=== PATIENT | female | born 1985 | race Caucasian/White ===

== ENCOUNTER 2017-11-26 12:55 | Inpatient (IN) | payer BC ==
[~2017-11-26 12:55] MED LIST: Bupivacaine 0.25% HCL 30 ML VIAL ONE
[2017-11-26] MEDS ORDERED: Meperidine HCl/PF 25 MG/ML VIAL IM/IV PRN (13:03)
[2017-11-26] MEDS ORDERED: HYDROcodone/Acetaminophen 5/325 mg Tablet PO PRN (13:03)
[2017-11-26] MEDS ORDERED: Ondansetron HCl/PF 4 MG/2 ML Vial IVP PRN (13:03)
[2017-11-26] MEDS ORDERED: Lidocaine 1% (PF) 30 ML VIAL SC PRN (13:03)
[2017-11-26] MEDS ORDERED: Ibuprofen 800 MG TAB PO PRN (13:03)
[2017-11-26] MEDS ORDERED: Methylergonovine 0.2 MG/ML VIAL IM PRN (13:03)
[2017-11-26] MEDS ORDERED: Carboprost 250 MCG/ML AMP IM PRN (13:03)
[2017-11-26] MEDS ORDERED: LR / Pitocin 40 units/1000 ml 1,000 ML IV PRN (13:03)
[2017-11-26] MEDS ORDERED: Misoprostol 200 MCG TAB PR PRN (13:03)
[2017-11-26] MEDS ORDERED: Promethazine HCl 25 MG/ML VIAL IM PRN (13:03)
[2017-11-26] MEDS ORDERED: Acetaminophen 500 MG TAB PO PRN (13:03)
[2017-11-26] MEDS ORDERED: LR 500 ML/Oxytocin 10 units 500 ML IV SCH (13:15)
[2017-11-26] MEDS: Lactated Ringer's 1,000 ML IV SCH ×2 (14:00→16:08)
[2017-11-26] MEDS ORDERED: Bupivacaine 0.5% 20 ML, Fentanyl 400 MCG in Sodium Chloride 0.9% 72 ML EPIDURAL SCH (14:30)
[2017-11-26 14:38] LABS: Hemoglobin 11.7 g/dL (12.0-16.0); Mean Corpuscular HGB CONC 32.1 g/dL (32.0-36.0); Mean Corpuscular Hemoglobin 30.6 pg (27.0-31.0); Mean Corpuscular Volume 95.4 fl (81.0-99.0); Mean Platelet Volume 12.2 fL (7.4-10.4); Platelet Count 173 thou/uL (130-400); RBC Distribution Width 13.8 % (11.5-14.5); Red Blood Cell (RBC) Count 3.82 mill/uL (4.20-5.40); White Blood Cell (WBC) Count 9.9 thou/uL (4.8-10.8)
[2017-11-26 14:43] VITALS: BMI 29.5
[2017-11-26 15:13] LABS: Syphilis Antibody Nonreactive (Nonreactive); Syphilis Antibody Index 0.06 S/CO (<1.00 Non-Reactive)
[2017-11-26 15:14] LABS: HBSAg Index 0.22 S/CO (0-0.99); Hep B Surf Ag Non-Reactive S/CO (NonReactive)
[2017-11-26] MEDS ORDERED: Naloxone HCl 0.4 mg/ml Vial IVP PRN ×2 (15:41)
[2017-11-26] MEDS ORDERED: ePHEDrine/0.9% NaCl/PF SYRINGE 50 mg/10 ml SLOW IVP PRN (15:41)
[2017-11-26] MEDS ORDERED: Acetaminophen 325 MG TAB PO PRN (15:41)
[2017-11-26] MEDS ORDERED: Eucerin (Mineral Oil/Petrolatum,White) 30 gm Jar TOP PRN (15:41)
[2017-11-26] MEDS ORDERED: Lactated Ringer's 500 ML IV PRN (15:41)
[2017-11-26] MEDS ORDERED: Fentanyl 4mcg/Marcaine 0.1% Cassette 100 ML EPIDURAL SCH (15:45)
[2017-11-26] MEDS ORDERED: Communication Order-Pharmacy FS SCH (15:45)
[2017-11-26] MEDS ORDERED: Calcium Carbonate 500 MG ChewTAB PO PRN (17:53)
[2017-11-26] MEDS ORDERED: Bisacodyl 10 MG SUPP PR PRN (23:03)
[2017-11-26] MEDS ORDERED: Lanolin Ointment 7 GM TUBE TOP PRN (23:03)
[2017-11-26] MEDS ORDERED: Preparation H Ointment 28 GM TUBE PR PRN (23:03)
[2017-11-26] MEDS ORDERED: LR / Pitocin 40 units/1000 ml 1,000 ML IV SCH (23:03)
[2017-11-26] MEDS ORDERED: Milk Of Magnesia 30 ML UDCUP PO PRN (23:03)
[2017-11-26] MEDS ORDERED: Ibuprofen 800 MG TAB PO SCH (23:30)
[2017-11-26] MEDS: Docusate Calcium (SURFAK) 240 MG CAP PO SCH (23:32)
[2017-11-26] MEDS: Ibuprofen 800 MG TAB PO SCH ×2 (23:33→23:35)
--- NOTE | 2017-11-27 00:52 | OP ---
DATE OF PROCEDURE: 11/26/2017 PREOPERATIVE DIAGNOSES: 1. Term intrauterine . 2. Severe right hip and thigh pain and induction of labor at term. POSTOPERATIVE DIAGNOSES: 1. Term intrauterine . 2. Severe right hip and thigh pain and induction of labor at term. 3. First degree perineal laceration. PROCEDURE PERFORMED: Normal spontaneous vaginal delivery and laceration repair. SURGEON: Eulalio Donovan M.D. ANESTHESIA: Epidural. ESTIMATED BLOOD LOSS: 250 mL. BRIEF DELIVERY SUMMARY: This is a 32-year-old G4, P2-0-2-2 at 39 and 4/7th weeks gestation who prese nted for induction of labor at term secondary to severe right hip and thigh joint pain. She arrived on Labor and Delivery and was given an epidural, which alleviated her hip and back pain. After that time, we performed artificial rupture of membranes. At the time of admission, her cervical exam was 3 to 4 cm, 70% effaced and -1 station. She progressed quickly to complete and pushing over 3 hours a nd she delivered a live female , head OA. Mouth and nares were bulb suctioned at the perineum. There was a nuchal cord x1, which was easily reduced prior to delivery of the shoulders. Shoulders and body quickly and easily followed and the was placed on mother's abdomen. Apgars w ere 8 at 1 minute and 9 at 5 minutes. The umbilical cord was doubly clamped and cut and cord blood w as collected and sent for analysis. The placenta delivered spontaneously and intact with a 3-vessel umbilical cord. Uterine fundus was firm following evacuation of the placenta. Benson catheter was re placed. There was a first degree perineal laceration, which was repaired in standard running fashion using 2-0 Vicryl suture under epidural anesthesia with excellent hemostasis. Mom and baby were left with the nurse in excellent condition attempting to breast feed.
[2017-11-27] MEDS: HYDROcodone/Acetaminophen 5/325 mg Tablet PO PRN ×3 (02:48→21:08)
[2017-11-27] MEDS: Ibuprofen 800 MG TAB PO SCH ×3 (06:24→21:08)
[2017-11-27] MEDS ORDERED: Prenatal Vitamin 1 TAB PO SCH (09:00)
[2017-11-27] MEDS: Ferrous Sulfate 325 MG TAB PO SCH ×2 (09:22→17:02)
[2017-11-27] MEDS: Docusate Calcium (SURFAK) 240 MG CAP PO SCH ×2 (09:23→21:08)
[2017-11-27 22:31] VITALS: TEMP 97.8
[2017-11-27 22:32] VITALS: BP 146/91
== END 2017-11-27 22:08 | disposition home or self-care (01) | DRG 775 ==
LOC: L&D 12:55 → 3SW 22:52
PROVIDERS: ADMIT Family Medicine; ATTEND Family Medicine
PROC: 10E0XZZ Delivery of Products of Conception, External Approach (ICD-10-PCS; principal; 2017-11-26)
PROC: 0HQ9XZZ Repair Perineum Skin, External Approach (ICD-10-PCS; 2017-11-26)
PROC: 10907ZC Drainage of Amniotic Fluid, Therapeutic from Products of Conception, Via Natural or Artificial Opening (ICD-10-PCS; 2017-11-26)
DX: O99.89 Other specified diseases and conditions complicating pregnancy, childbirth and the puerperium (principal); M25.551 Pain in right hip; M53.3 Sacrococcygeal disorders, not elsewhere classified; M79.651 Pain in right thigh; O69.81X0 Labor and delivery complicated by cord around neck, without compression, not applicable or unspecified; O70.0 First degree perineal laceration during delivery; Z3A.39 39 weeks gestation of pregnancy; Z37.0 Single live birth
CPT/HCPCS: 36415; 51702; 85027; 86780; 87340; J2001; J3010; J3490; J7050; S0020

== ENCOUNTER 2017-12-01 12:22 | Inpatient (IN) | payer BC ==
--- NOTE | 2017-12-01 12:59 | PDOC.EVN ---
Event Note - Event Note Event Note: ER call to em at 1250: I just received a call from the PA in the ER. She has assumed care of Ms Hunter who just arrived to the ED. Per EMS, she had a "seizure" and just arrived to our ER. She delivered [address] Donovan, controlled , which was induced for chronic hip pain but not HTN. She does not report any FREEMAN or visual changes in these last few days since delivery. Her BP in ER was 140/90s, but not severe. I have requested she get 6 grams IV Mag then 2 grams per hour. She needs CMP/CBC /Urine protien. Due to atypical presentation, I have requested a head CT to rule out any other intracranial issues. Patient received versed 5mg per EMS. I have notified Dr Donovan and am awaiting her response. Will bring up to L&D when the ER eval is complete. Working DX: 5 days , eclampsia.
[2017-12-01] MEDS ORDERED: Magnesium Sulfate 6 GM in Sodium Chloride 0.9% 250 ML 250 ML IVPB SCH (13:00)
[2017-12-01] MEDS ORDERED: Magnesium Sulfate 2 GM/100 ML BAG ONE (13:28)
--- NOTE | 2017-12-01 13:28 | PDOC.LDHP ---
Labor and Delivery H&P Chief complaint: other (5 days seizure activity) HPI: 32 yo white X 3, last one was [address] Donovan, SAB x2 (one D&C ) here for seizure witnessed by EMS. Given Versed 5mg x 1. In ER now bed4. I have seen the patient (slightly post-ictal)and interviewed the at bedside. Dr Donovan aware of patient. No meds except hydrocodone for hip pain. Allergies: NONE Surg: D&C X1 ROS: not available due to patient sedation BP now 130/[address] done...MRI pending Labs pending (see event note from 20 minutes prior) Grav: 5 Para: 3 (SAB 2) Current complications: none Allergies/Adverse Reactions: Allergies Allergy/AdvReac Type Severity Reaction Status Date / Time No Known Drug Allergies Allergy Verified 07/01/15 23:06 - Physical Exam Abnormal vital signs: 130/100 - Plan Plan: admit to L&D, magnesium for seizure prophylaxis (We will continue workup in ED. Once MRI done, transfer to L&D. Mag 6gram load in use right now. Working DX is Eclampsia. Plan D/W ER team.)
[2017-12-01 13:30] LABS: #Basophils 0.1 thou/uL (0.0-0.2); #Lymphocytes 1.4 thou/uL (1.20-3.40); #Monocytes 0.6 thou/uL (0.11-0.59); #Neutrophils 8.2 thou/uL (1.40-6.50); %Basophils 0.8 % (0.0-1.0); %Eosinophils 0.4 % (0.0-10.0); %Lymphocytes 13.7 % (21.0-51.0); %Monocytes 5.7 % (0.0-10.0); %Neutrophils 79.5 % (42.0-75.0); Hemoglobin 13.3 g/dL (12.0-16.0); Mean Corpuscular HGB CONC 31.9 g/dL (32.0-36.0); Mean Corpuscular Hemoglobin 30.6 pg (27.0-31.0); Mean Corpuscular Volume 95.6 fl (81.0-99.0); Mean Platelet Volume 11.1 fL (7.4-10.4); Platelet Count 202 thou/uL (130-400); Red Blood Cell (RBC) Count 4.34 mill/uL (4.20-5.40); White Blood Cell (WBC) Count 10.3 thou/uL (4.8-10.8)
[2017-12-01] MEDS ORDERED: Calcium Gluconate 4.6 MEQ in Sodium Chloride 0.9% 100 ML IVPB PRN (13:42)
--- NOTE | 2017-12-01 13:47 | PDOC.EVN ---
Event Note - Event Note Event Note: @1340: MRI pending. states his was lying down due to the right hip pain when the SZ happened..no fall, no head trauma. She had an ortho appoitment for tomorrow due to the hip pain, and we can follow that up as outpatient once this eval complete.
--- NOTE | 2017-12-01 13:49 | CT ---
NONCONTRAST CT HEAD: Date: 12-01-17 History: Post- four days ago, patient had seizure for 34 minutes. Comparison: None available. FINDINGS: There are low density areas seen in a parafalcine location in the supraventricular region with sugges tion of similar density area within the corpus callosum posteriorly. There is a questioned low densit y area seen posteriorly within the right parietal occipital region as well. Exact etiology for these areas of decreased attenuation are uncertain. Findings could potentially be related to posterior reve rsible encephalopathy syndrome (PRES). Areas of infarction related to an embolic phenomenon is a poss ibility. There is no mass effect or midline shift. No intraparenchymal or extraaxial hemorrhage is seen. The v entricular system is normal in size, shape, and position. The paranasal sinuses and mastoid air cells are clear. Calvarial structures are intact. IMPRESSION: 1. Multifocal low density areas seen in a paramedian/parafalcine supraventricular location, more prom inent on the right with low density area also seen within the posterior right parietooccipital lobe. There are questionable low density areas in each bifrontal lobe, but these areas could potentially be related to volume averaging with a sulcus. Ffindings may be related to posterior reversible encephal opathy syndrome (PRES) as stated above, versus embolic phenomenon with small areas of infarction. 2. MRI of brain is recommended for further evaluation with and without IV contrast. These findings we re discussed with Dr. Zamudio in the Emergency Department by Dr. Bobo on 12-01-17 at 1311 hours. POS: [facility]
[2017-12-01 13:52] LABS: ALT (SGPT) 103 U/L (8-55); AST (SGOT) 361 U/L (5-34); Albumin 2.6 g/dL (3.5-5.0); Alkaline Phosphatase 669 U/L (40-150); Anion Gap 16 mmol/L (10-20); BUN (Urea Nitrogen) 11 mg/dL (7.0-18.7); Bilirubin, Total 1.5 mg/dL (0.2-1.2); Calc. Creatinine Clearance 0 mL/min (70-130); Calcium 11.2 mg/dL (7.8-10.44); Carbon Dioxide 21 mmol/L (22-29); Chloride 102 mmol/L (98-107); Estimated GFR-MDRD Greater than 90; Globulin 3.5 g/dL (2.4-3.5); Glucose 87 mg/dL (70-105); Potassium 4.1 mmol/L (3.5-5.1); Protein, Total 6.1 g/dL (6.0-8.3); Sodium 135 mmol/L (136-145)
[2017-12-01 14:27] LABS: Acetaminophen Less than 6.0 mcg/mL (10.0-30.0); Alcohol Less than 10 mg/dL (Less than 10); Salicylate Less than 8.0 mg/dL (15.0-30.0)
[2017-12-01 15:00] LABS: Bilirubin Negative (Negative); Blood, Urine Negative (Negative); Clarity CLEAR (Clear); Glucose, Urine (Dipstick) Negative (Negative); Leukocyte Negative (Negative); Nitrite Negative (Negative); Protein, Urine (Dipstick) Negative (Neg-Trace); Specific Gravity, Urine 1.009 (1.002-1.036); Urobilinogen 0.2 mg/dL (0.2-1.0); pH, Urine 6.5 (5.0-9.0)
[2017-12-01 15:10] LABS: Amphetamine Not Detected (NotDetected); Barbiturates Screen Not Detected (NotDetected); Benzodiazepine Screen Not Detected (NotDetected); Cocaine Metabolite Screen Not Detected (NotDetected); Medtox Control Line Valid? VALID (VALID); Medtox Reader # READER 1; Methadone Not Detected (NotDetected); Methamphetamine Not Detected (NotDetected); Opiate Screen Not Detected (NotDetected); Oxycodone Screen Not Detected (NotDetected); Phencyclidine (PCP) Not Detected (NotDetected); THC/Cannabinoid Screen Not Detected (NotDetected); Tricyclic Screen Not Detected (NotDetected)
[2017-12-01] MEDS ORDERED: Labetalol HCl 100 MG/20 ML VIAL SLOW IVP PRN (15:32)
[2017-12-01] MEDS ORDERED: Promethazine HCl 25 MG/ML VIAL IM/IV PRN (15:32)
--- NOTE | 2017-12-01 15:34 | MRI ---
MRI BRAIN NONCONTRAST: DATE: 12-01-17 HISTORY: 32-year-old post- female with seizures. COMPARISON: None. FINDINGS: There are multifocal small patchy T2 hyperintensities consistent with edema scattered in the bilatera l occipital lobes, upper paramedian parietal lobes, and upper frontal lobes, involving cortex, subcor tical white matter, and deep white matter. Some of the lesions involve the corpus callosum, including several tiny ones in the body, and a moderate sized one in the splenium of the corpus callosum, cent ered to the right of midline. Several are present in the altamirano radiata and centrum semiovale. Many m ore lesions are visible on the MRI compared to the CT. None of these have restricted diffusion or hem orrhage. The ventricles are normal in size and configuration. There is no mass effect, midline shift, or extraaxial fluid collection. IMPRESSION: 1. Numerous small patchy foci of edema in the bilateral cerebral brain parenchyma. 2. Given the recent post- status, this probably represents PRES (posterior reversible encephalo mone syndrome). 3. Follow up is recommended. MIMI Yarbrough POS: [facility]
[2017-12-01] MEDS ORDERED: hydrALAZINE 20 MG/ML VIAL ONE (15:36)
--- NOTE | 2017-12-01 15:37 | PDOC.EVN ---
Event Note - Event Note Event Note: L&D @ 1540: Patient now in L&D with a FREEMAN. IV mag in use. SCDs on for VTE prophylaxis. I have just ordered 10mg IN labetolol for BP lowering. CT with possible PRES findings vs other. MRI done and report pending. Pain meds prn. Labs with normal CR, normal BCB. AST 361 and ALT 103...supports findings of ECLAMPSIA.
[2017-12-01] MEDS: Magnesium Sulfate 20 gm/500 ml 20 GM/500 ML BAG IVPB SCH (15:40)
[2017-12-01 15:51] VITALS: BMI 28.0
[2017-12-01] MEDS ORDERED: FLU VACC QS2017-18 36 mo. & older 0.5 ML SYRINGE IM ONE (16:15)
--- NOTE | 2017-12-01 16:34 | PDOC.EVN ---
Event Note - Event Note Event Note: @1630: MRI compatible with PRES. BP better after IV labetolol
[2017-12-01] MEDS ORDERED: Lanolin Ointment 7 GM TUBE TOP PRN (19:13)
--- NOTE | 2017-12-01 23:37 | PDOC.EVN ---
Event Note - Event Note Event Note: 2330: Bed check: Mag in use. Patient resting, no new issues. BPs 120/80s. Has not required any further labetolol.
[2017-12-02] MEDS: Magnesium Sulfate 20 gm/500 ml 20 GM/500 ML BAG IVPB SCH ×2 (02:08→11:41)
--- NOTE | 2017-12-02 02:58 | PDOC.EVN ---
Event Note - Event Note Event Note: @0300: left breast erythema.... No fever...will begin Dicloxacillin for presumed early mastitis.
[2017-12-02 06:30] LABS: ALT (SGPT) 122 U/L (8-55); AST (SGOT) 437 U/L (5-34); Albumin 2.6 g/dL (3.5-5.0); Alkaline Phosphatase 736 U/L (40-150); Anion Gap 15 mmol/L (10-20); BUN (Urea Nitrogen) 11 mg/dL (7.0-18.7); Bilirubin, Total 1.5 mg/dL (0.2-1.2); Calc. Creatinine Clearance 145 mL/min (70-130); Calcium 9.5 mg/dL (7.8-10.44); Carbon Dioxide 22 mmol/L (22-29); Chloride 103 mmol/L (98-107); Estimated GFR-MDRD Greater than 90; Globulin 3.4 g/dL (2.4-3.5); Glucose 69 mg/dL (70-105); Potassium 4.5 mmol/L (3.5-5.1); Sodium 135 mmol/L (136-145)
--- NOTE | 2017-12-02 06:53 | PDOC.EVN ---
Event Note - Event Note Event Note: L&D check: Patient seen at 0640 at bedside: Doing well, no FREEMAN or other issues BPs 120/80s, good UOP Mag in use until 1330 or so Repeat CMP with persistent elevated LFTS: AST 437, ALT 122 Left breast mild mastitis: on Diclox 500mg po QID A/P: S/P eclampsia with residual elevated LFTs. Continue MG until 1330 today, good diuresis and no edema. Dicolx for breast. senior information security consultant christina done yesterday.
--- NOTE | 2017-12-02 12:34 | CON ---
DATE OF CONSULTATION: 12/02/2017 ATTENDING PHYSICIAN: Dr. Eulalio Donovan HISTORY OF PRESENT ILLNESS: The patient is a 32-year-old white female who just delivered her third c hild last week. I saw her a few weeks ago with a several week history of progressive pain in her rig ht buttock and right hip area which was thought to be secondary to and perhaps pressure on her lumbosacral plexus. She was treated with rest, Medrol Dosepak, and p.r.n. hydrocodone without mu ch improvement. It was felt that this would resolve after delivery, but she has continued to have sy mptoms. Over this past weekend she noticed some numbness on the sole of the right foot. Yesterday s he had 2 witnessed seizures, which has been thought to be secondary to eclampsia and was admitted fo r this and is now on magnesium IV. She is stable from this standpoint, but still has had a low back and right hip and leg pain. PAST HISTORY: As noted above. The patient is otherwise in good health. PHYSICAL EXAMINATION: GENERAL: Reveals a healthy female. She is alert and oriented. EXTREMITIES: Pertinent findings related to her back and lower extremities. There is tenderness in l umbosacral junction and in the right buttock area. No definite groin tenderness. There is some ques tionable pain with extremes of motion of her right hip. Straight leg raising causes back and buttock pain on the right at approximately 70 degrees and is negative on the left. Motor exam is intact. There is some subjective numbness on the palmar aspect of the right foot. Previous x-ray diagnostic studies were not performed previously because of her . IMPRESSION: Low back and right hip pain, possible radiculopathy. PLAN: Will obtain x-rays of her back, pelvis and right hip. If these did not show any obvious patho logy she will go for MRI scanning of her lumbar spine and/or hip. In the meantime, we will continue supportive and symptomatic care. Thank you for allowing me to see this patient. I will follow with you.
--- NOTE | 2017-12-02 14:10 | PRG ---
DATE OF SERVICE: 12/02/2017 SUBJECTIVE: The patient continues to complain of right low back and hip pain radiating into the thig h down to about the level of the knee and this is only modestly improved from delivery. Furthermore, she is complaining of mental fog and feeling very drowsy. She denies any headache and states that s he does feel somewhat better than yesterday when she presented following an eclamptic seizure. OBJECTIVE: VITAL SIGNS: Blood pressures are 130s to 140s over 90s, pulse is in the 80s, respirations are 16, an d O2 sat is 96% on room air. GENERAL: This is a well-developed, well-nourished female in no apparent distress, although she does appear moderately uncomfortable in the bed. HEENT: Unremarkable. HEART: Regular rate and rhythm with no murmurs. LUNGS: Clear to auscultation bilaterally. ABDOMEN: Soft, nontender with normoactive bowel sounds. There is a Benson catheter in place draining clear urine. EXTREMITIES: Show no clubbing, cyanosis, or edema. NEUROLOGIC: Nonfocal, reflexes are 2+ throughout. LABORATORY DATA: CBC done on admission was normal with a platelet count of 202. She did have mildly elevated LFTs yesterday. These continue to be elevated with an AST of 437 and an ALT of 122. Compr ehensive metabolic panel is otherwise normal today. Urinalysis is negative for protein. Urine toxic ology was negative. MRI of the brain showed reversible encephalopathy related to elevated blood pres sure. This supports the idea eclampsia as the diagnosis. ASSESSMENT AND PLAN: This is a 32-year-old G5, P3-0-2-3, 6 days who presented with an ecl amptic seizure. 1. Eclampsia. She was started on magnesium at 1540 hours on 12/01/2017, we will continue this for 2 4 hours. She has had good urine output and improvement in her blood pressure. She did receive 1 dos e of labetalol 10 mg IV yesterday at 1545; however, she has not required any additional blood pressur e lowering medications. We did discuss that she would probably need to go home on some kind of oral blood pressure medication, although exactly what that will be remains to be seen. Looking back at he r last admission when she was present for delivery, her pressures were largely normal. She did have one significantly elevated pressure just prior to discharge that I was not aware of, this was noted b y the nurse that the patient was in pain. She was given pain medication and the blood pressure came down substantially, so the nurse felt that she could be discharged under my orders. Looking back, it is possible that was an early sign of what was to come, but again it responded really well to just m anagement of her pain. 2. Significant back pain and leg pain. Dr. Bhandari has actually seen the patient, both outpatient and during this hospital stay. X-rays have been ordered to look at the low back, the pelvis and the rig ht hip. If those are normal, the next step would be MRI of that area. For now, we will just continu e with narcotic pain relief, which does seem to be taking the edge off. 3. Breast redness. It is unclear if this represents true mastitis; however, the patient was started on dicloxacillin by the OB Hospitalist and we will continue that for the time being. She does not h ave a fever or any other signs of acute infection and just some redness and slight uncomfortable feel ing in both breasts. She is also pumping breast milk for her infant and the infant will come visit h er today as well. 4. We will repeat her comprehensive metabolic panel tomorrow to watch the trend of her LFTs. 5. Disposition should be home within a couple of days provided we can keep her blood pressure under good control.
--- NOTE | 2017-12-02 17:33 | RAD ---
TWO VIEWS RIGHT HIP: Date: 12-02-17 History: Low back pain, right hip pain. FINDINGS: There is no evidence of a fracture or dislocation. No other osseous abnormality is seen. IMPRESSION: No acute osseous abnormality right hip. POS: [facility]
--- NOTE | 2017-12-02 17:36 | RAD ---
AP PELVIS: Date: 12-02-17 History: Low back pain, right hip pain. FINDINGS: There is no evidence of a fracture or dislocation. There is suggestion of lucency involving the left inferior pubic ramus with expansion of pubic ramus which is asymmetric compared to the right inferior pubic ramus. This may be developmental in origin in the lucency related to overlying densities, a le dillon in this region cannot be entirely excluded. No other lytic or sclerotic osseous lesions are seen involving the pelvis. Minimal degenerative change involving the pubic symphysis. Phleboliths overlie the pelvis. IMPRESSION: 1. Asymmetry in the left inferior pubic ramus compared to the right with question of expansion and jelena cency within the left inferior pubic ramus. This may be projectional, but further evaluation is recom mended to exclude the possibility of a lesion in this region. Dedicated views of the left hip are sug gested. Code T POS: [facility]
--- NOTE | 2017-12-02 17:38 | RAD ---
TWO VIEWS LUMBAR SPINE: Date: 12-02-17 History: Low back pain, right hip pain. FINDINGS: There are five non-rib bearing lumbar type vertebral bodies. The vertebral body heights are within no rmal limits. There is narrowing of the L3-4 intervertebral disc space. No fracture or subluxation is seen. No other findings. IMPRESSION: 1. No acute fracture or subluxation involving the lumbar spine. 2. Narrowing of the intervertebral disc space at the L3-4 level. POS: [facility]
[2017-12-02] MEDS ORDERED: Lanolin Ointment 7 GM TUBE TOP PRN (18:12)
[2017-12-02] MEDS ORDERED: diphenhydrAMINE 25 MG CAP PO PRN (18:12)
[2017-12-02] MEDS ORDERED: Milk Of Magnesia 30 ML UDCUP PO PRN (18:12)
[2017-12-02] MEDS ORDERED: Bisacodyl 10 MG SUPP PR PRN (18:12)
[2017-12-02] MEDS ORDERED: Adacel (T-DAP) 0.5 ML VIAL IM ONE (18:12)
[2017-12-02] MEDS ORDERED: LR / Pitocin 40 units/1000 ml 1,000 ML IV SCH (18:12)
[2017-12-02] MEDS: Docusate Calcium (SURFAK) 240 MG CAP PO SCH (23:17)
[2017-12-02] MEDS: Ibuprofen 800 MG TAB PO SCH (23:23)
[2017-12-03] MEDS: Ibuprofen 800 MG TAB PO SCH ×3 (05:28→21:37)
[2017-12-03 05:53] LABS: ALT (SGPT) 112 U/L (8-55); AST (SGOT) 419 U/L (5-34); Albumin 2.3 g/dL (3.5-5.0); Alkaline Phosphatase 710 U/L (40-150); Anion Gap 9 mmol/L (10-20); BUN (Urea Nitrogen) 15 mg/dL (7.0-18.7); Bilirubin, Total 1.6 mg/dL (0.2-1.2); Calc. Creatinine Clearance 125 mL/min (70-130); Calcium 9.8 mg/dL (7.8-10.44); Carbon Dioxide 27 mmol/L (22-29); Chloride 98 mmol/L (98-107); Estimated GFR-MDRD 90; Glucose 82 mg/dL (70-105); Potassium 4.1 mmol/L (3.5-5.1); Protein, Total 5.3 g/dL (6.0-8.3); Sodium 130 mmol/L (136-145)
--- NOTE | 2017-12-03 09:01 | PRG ---
DATE OF SERVICE: 12/03/2017 PRIMARY OB: Dr. Eulalio Donovan. SUBJECTIVE: The patient is a 32-year-old female who was admitted to labor and delivery, d ay #5 for eclampsia and was placed on 24 hours of magnesium. The patient is noted to have elevated l iver enzymes on arrival. The patient is now about 18 hours off of magnesium and denies headaches or right upper quadrant tenderness or shortness of breath. The patient does have a musculoskeletal issu e in her lower back and hip and leg, this is being evaluated by Orthopedics and has been diagnosed wi th mastitis, placed on dicloxacillin by her primary OB, Dr. Eulalio Donovan. Patient otherwise reports a ppropriate lochia. She is tolerating a diet, has some difficulty ambulating due to this musculoskele sagar issue, is voiding on her own. Her blood pressures over the last 24 hours have ranged from 138/89 -165/96. OBJECTIVE: GENERAL: She appears to be in no acute distress. She is alert and oriented, and cooperative and ple asant to interact with. ABDOMEN: Soft. EXTREMITIES: Nontender, nonedematous. LABORATORY DATA: Labs this morning, her AST is beginning to fall, 419 down from 437, ALT is down to 112 from 122, alkaline phosphatase is down to 710 from 736. ASSESSMENT AND PLAN: The patient is a 32-year-old female status post eclampsia, in magnesium. It ap pears she has had 1 severe range of pressure yesterday afternoon. All others have been in the mild r lila. We will continue to watch her blood pressures today. If she spikes again in the severe range, we will recommend starting blood pressure medication.
[2017-12-03] MEDS: Ondansetron HCl/PF 4 MG/2 ML Vial IVP PRN ×2 (09:50→14:58)
[2017-12-03] MEDS: NIFEdipine XL 30 MG TAB PO SCH (09:50)
[2017-12-03] MEDS: Docusate Calcium (SURFAK) 240 MG CAP PO SCH ×2 (09:51→21:32)
[2017-12-03] MEDS: Ferrous Sulfate 325 MG TAB PO SCH ×2 (09:51→17:08)
[2017-12-03] MEDS: Prenatal Vitamin 1 TAB PO SCH (09:52)
--- NOTE | 2017-12-03 13:18 | MRI ---
MRI PELVIS WITH AND WITHOUT CONTRAST: HISTORY: Pain. COMPARISON: Radiographs from 12/02/2017. FINDINGS: There is free fluid in the pelvis. Recent post uterus. There is extensive edema throughout the adductor as well as obturator musculature at the pelvis. The is an abnormal enhancing mass in the sacrum, as well as in the ilium, bilaterally, left acetabulum, the right intertrochanteric portion of the femur, the right ischium, and the left ischium, as well as both pubic bodies and the right superior pubic ramus. A pathologic fracture is noted of the right s uperior pubic ramus. There is also a soft tissue enhancing tumor breaking through the left inferior pubic ramus pathologic fracture, involving the adductor muscles. IMPRESSION: Extensive osseous metastatic disease with pathologic fractures of the right superior and left inferio r pubic rami, with soft tissue extension outside the cortices and periosteum, extending into the marilu cent musculature. Dr. Bhandari was notified of the findings, via telephone, at around 12:00 p.m. An oncologic consultation is recommended. A follow-up chest, abdomen, and pelvis CT for further evaluation is recommended. CODE CR POS: [facility]
[2017-12-03] MEDS ORDERED: ISOVUE-370 76%-LOCM 1 ML ONE (13:27)
--- NOTE | 2017-12-03 15:06 | MRI ---
MRI LUMBAR SPINE WITH AND WITHOUT CONTRAST: HISTORY: Back pain. COMPARISON: Radiographs. FINDINGS: There is extensive retroperitoneal adenopathy. Abnormal T2 hyperintense enhancing lesions within the liver. No hydronephrosis. There is free fluid in the pelvis. Abnormal enhancing masses within L1, L2, L3, and L4 vertebrae. There is also enhancing mass within t he S1 with anterior cortical breakthrough. There is posterior extension of tumor at L3 with effaceme nt of the posterior longitudinal ligament. This narrows the spinal canal to approximately 4 mm. There is involvement of the transverse processes of L5 bilaterally. No significant neural foraminal narrowing. IMPRESSION: 1. Extensive osseous metastatic disease throughout the lumbar spine involving L1-2-3-4 as well a s the L5 vertebral body and the transverse processes. There is also involvement of the S1 vertebral body with anterior cortical breakthrough. 2. Posterior cortical breakthrough with effacement of the epidural space at L3 narrowing the spinal canal to approximately 4 mm. 3. Extensive abnormal signal throughout the liver suggesting metastatic disease. 4. Extensive retroperitoneal adenopathy. 5. Abnormal soft tissue enhancement along the right S1 nerve root. 6. Oncologic consultation recommended. Chest, abdomen, and pelvis CT for staging is recommended. Dr. Berry Bhandari notified of the findings via telephone at approximately 12:00 p.m. CODE CR POS: [facility]
--- NOTE | 2017-12-03 17:19 | CT ---
CT CHEST WITH CONTRAST CT ABDOMEN WITH CONTRAST CT PELVIS WITH CONTRAST 12/03/17 HISTORY: Abnormal MRI. Metastatic lesions. Evaluate for primary. COMPARISON: MRI pelvis and lumbar spine 12/03/17. FINDINGS: Severe thickening of the left breast. Multiple left sided breast masses. Multiple enlarged left axill jeffrey lymph nodes. Hyperdense breast mass on the left. There is a right perifissural lung nodule measuring up to 6 mm. No pneumothorax. There is a moderate sided left pleural effusion. No pericardial effusion. Diffuse hepatic metastatic disease. Large volume ascites. Recent uterus. Dilatation of the gonadal veins. There is retroperitoneal adenopathy. There is lytic focus of the L3 vertebra with epidural extension of tumor. There is also a lytic focus of sacrum and S1. Lytic mass is present in L2 as well as T9 and T6 vertebrae. There is a lytic lesio n in the right third rib. There is also lytic anterior left fourth rib lesion. Lytic lesion in the po sterior left fifth rib. There is a lytic lesion in the right glenoid. There are lytic foci of the right superior and inferior pubic rami, left inferior pubic ramus, pathol ogic fracture. There is a pathologic fracture right superior and inferior pubic rami. There is a larg e lytic mass of the sacrum bilaterally as well as acetabular lesions and ilium lesions. IMPRESSION: 1. Extensive thickening of skin over the left breast with multiple hyperdense breast masses conc erning for malignant process as well as axillary lymphadenopathy. 2. Near complete replacement of the liver parenchyma with metastatic foci. 3. Extensive retroperitoneal adenopathy shows some metastatic disease. 4. Extensive axial and appendicular metastatic disease with epidural extension of tumor at L3. T here are also pathologic fractures of the superior and inferior pubic rami. Tumor involves the right S1 nerve root. CODE: LENNOX Donovan POS: [facility]
--- NOTE | 2017-12-03 18:34 | CON ---
DATE OF CONSULTATION: 12/03/2017 REASON FOR CONSULTATION: Metastatic lesions. HISTORY OF PRESENT ILLNESS: Ms. Hunter is a 32-year-old female who was admitted to labor and delivery on day #5 for eclampsia. She presented with headaches and right hip pain. She has been treated with IV magnesium and blood pressure medicine. The patient has been struggling with hip pain since approximately mid-. She did see Dr. Bhandari in the outpatient setting. X-rays of the area showed no areas of concern. Her pain increased substantially approximately 2 weeks prior to delivery, to the point where she is now using a walker with ambulation. The patient has also had some left breast tenderness as far back as the beginning of . She did have an ultrasound several months ago which was unremarkable. Apparently two days ago, she had a seizure and was taken by ambulance to the ER. She had a brain CT , which showed multifocal low density areas in the paramedian, parafalcine and supraventricular area. I felt this is due to press syndrome. She had an MRI of the brain without contrast, which showed again small patchy foci of edema. She has had no seizures since admission. She had a lumbar MRI this morning which showed abnormal enhancing masses within L1, L2, L3 and L4 vertebra. There was an enhancing mass with S1. There was narrowing of the spinal canal at L3. There was abnormal signal throughout the liver suggestive of metastatic disease. She had extensive retroperitoneal adenopathy. This was confirmed with a pelvic MRI. The patient's has been unremarkable except for the right hip pain and difficulty ambulating. She has not had any significant nausea or weight loss. She does admit to having night sweats, particularly after delivery. No itching or rash. PAST MEDICAL HISTORY: None. PAST SURGICAL HISTORY: D and C x1. ALLERGIES: No known drug allergies. HOME MEDICATIONS: 1. Aspirin 81 mg daily. 2. Hydrocodone p.r.n. 3. vitamin daily. 4. Motrin p.r.n. FAMILY HISTORY: Grandmother had possible ovarian cancer, but she is not sure. Her mother has no history of cancer, unknown oncological history on her father' s side. SOCIAL HISTORY: She is and has 3 children and is day #5. No alcohol, tobacco or illicit drug use. REVIEW OF SYSTEMS: Constitutional: No fever, chills. Positive for night sweats. Eyes: No blurred or double vision. ENT: No pain, hoarseness, sore throat, or dysphagia. Cardiovascular: No chest pain, palpitations or syncope. Respiratory: No shortness breath, dyspnea on exertion or orthopnea. Gastrointestinal: Positive for nausea, no vomiting, diarrhea, constipation or abdominal pain. Genitourinary: No dysuria or hematuria. Musculoskeletal: Positive for right hip and back pain. Skin: Positive for rash on her left breast. Neurological: Positive for right lower extremity weakness. Psychiatric: The patient denies anxiety or depression. PHYSICAL EXAMINATION: VITAL SIGNS: Temperature is 98.0, pulse is 84, respiratory rate 18, BP is 137/ 92. GENERAL: Well-developed, well-nourished female, in no acute distress. HEENT: Normocephalic, atraumatic. Pupils equal and reactive to light. NECK: Supple. CARDIOVASCULAR: Regular rate and rhythm. LUNGS: Clear. ABDOMEN: Firm, distended, postpartal. EXTREMITIES. No clubbing, cyanosis or edema. BREASTS: Her left breast has patchy erythematous skin changes with multiple palpable areas lesions with well-defined borders. Her right breast is soft with no skin or nipple changes. NEUROLOGICAL: Nonfocal. PSYCHIATRIC: The patient is alert and oriented and answers questions appropriately. PERTINENT LABORATORY AND X-RAYS: Current WBCs are 10.3, hemoglobin 13.3, hematocrit 41.5, platelet count is 202,000. She has got 80% neutrophils, 14% lymphocytes, 6% monocytes. Sodium is 130, potassium 4.1, chloride 98, CO2 is 27 , BUN is 15, creatinine 0.74, calcium is 9.8, total bilirubin is 1.6, AST is 419 , ALT is 112, alkaline phosphatase is 710, serum total protein is 5.3, albumin 2.3, globulin 3.0. Urine is negative for bacteria. Radiology per HPI. ASSESSMENT: 1. Metastatic disease with bone and liver involvement, likely breast lesions. 2. Multi-foci areas in brain. PRES vs metastatic lesions 3. Hypercalcemia. 4. day #5, delivery of a healthy infant. PLAN: The case has been discussed with Dr. Pardo who was discussed case with Dr. Donovan. The patient will have a CT scan of her chest, abdomen, and pelvis with contrast to complete staging. I recommend a brain MRI with contrast to further evaluate these areas of edema. She needs a tissue biopsy, possibly of the liver tomorrow. Further recommendations will be based on these results. [facility]
[2017-12-03] MEDS: Morphine 5 MG/ML SYRINGE SLOW IVP PRN (19:01)
[2017-12-03] MEDS ORDERED: hydrALAZINE 10 MG TAB PO SCH (21:15)
[2017-12-04 05:53] LABS: #Basophils 0.1 thou/uL (0.0-0.2); #Eosinphils 0.1 thou/uL (0.0-0.7); #Monocytes 0.7 thou/uL (0.11-0.59); #Neutrophils 7.2 thou/uL (1.40-6.50); %Basophils 0.5 % (0.0-1.0); %Eosinophils 0.8 % (0.0-10.0); %Lymphocytes 20.2 % (21.0-51.0); %Monocytes 7.2 % (0.0-10.0); %Neutrophils 71.3 % (42.0-75.0); Hemoglobin 12.3 g/dL (12.0-16.0); Mean Corpuscular HGB CONC 32.5 g/dL (32.0-36.0); Mean Corpuscular Hemoglobin 30.8 pg (27.0-31.0); Mean Corpuscular Volume 94.7 fl (81.0-99.0); Mean Platelet Volume 10.6 fL (7.4-10.4); Platelet Count 231 thou/uL (130-400); RBC Distribution Width 13.9 % (11.5-14.5)
[2017-12-04 06:03] LABS: INR-International Normal Ratio 1.1; PTT 37.7 SEC (22.9-36.1)
[2017-12-04 06:24] LABS: ALT (SGPT) 117 U/L (8-55); AST (SGOT) 427 U/L (5-34); Albumin 2.5 g/dL (3.5-5.0); Alkaline Phosphatase 732 U/L (40-150); Anion Gap 12 mmol/L (10-20); BUN (Urea Nitrogen) 14 mg/dL (7.0-18.7); Bilirubin, Total 1.7 mg/dL (0.2-1.2); Calc. Creatinine Clearance 130 mL/min (70-130); Calcium 10.9 mg/dL (7.8-10.44); Carbon Dioxide 28 mmol/L (22-29); Chloride 99 mmol/L (98-107); Estimated GFR-MDRD Greater than 90; Globulin 3.4 g/dL (2.4-3.5); Glucose 72 mg/dL (70-105); Potassium 4.1 mmol/L (3.5-5.1); Protein, Total 5.9 g/dL (6.0-8.3); Sodium 135 mmol/L (136-145)
[2017-12-04] MEDS: Ibuprofen 800 MG TAB PO SCH ×3 (07:44→21:49)
--- NOTE | 2017-12-04 08:43 | PDOC.EVN ---
Event Note - Event Note Event Note: @0840: I assumed care this morning after off shift. I was updated on the patient 's status. New DX of metastatic Breast CA...likely Inflammatory Breast Cancer. Multiple bone mets. Sz activity may have been due to brain mets First Brain MRI that I ordered was not contrasted, may have not picked up brain mets. Follow up per primary care team. I will see her later this am.
[2017-12-04] MEDS ORDERED: Lidocaine 1% w/Epinephrine 1:100K 30 ML VIAL SC SCH (09:30)
--- NOTE | 2017-12-04 09:38 | MRI ---
MRI BRAIN WITH GADOLINIUM CONTRAST: History: Breast cancer. Abnormal MRI. Comparison: Noncontrast study 12-01-17. FINDINGS: No abnormal areas of contrast enhancement are apparent. The patchy areas of edema involving each cere bral hemisphere on recent MRI exam are not well visualized on the T1 weighted images. There is no mas s effect or shift of midline structures. The ventricles appear normal in size, shape, and position. IMPRESSION: No evidence of intracranial metastatic disease. POS: JAIRO
[2017-12-04] MEDS: Docusate Calcium (SURFAK) 240 MG CAP PO SCH ×2 (10:10→20:18)
[2017-12-04] MEDS: NIFEdipine XL 30 MG TAB PO SCH (10:10)
[2017-12-04] MEDS: Ferrous Sulfate 325 MG TAB PO SCH ×2 (10:11→18:42)
[2017-12-04] MEDS: Prenatal Vitamin 1 TAB PO SCH (10:12)
--- NOTE | 2017-12-04 16:15 | NM ---
WHOLE BODY BONE SCAN: 12/04/17 HISTORY: Osseous metastatic disease. RADIOPHARMACEUTICAL: 33 millicuries technetium 99m-MDP injected intravenously. FINDINGS: Correlation is made with the CT chest, abdomen and pelvis from previous day. There are multiple foci of increased uptake in the ribs, right sacrum, and inferior pubic rami consis tent with osseous metastatic disease. The lytic lesions in the spine noted on the CT scan do not demo nstrate increased uptake on the bone scan. Increased uptake in the shoulders, knees, ankles and feet demonstrate degenerative change. Trace excr etion is seen through the kidneys with a full urinary bladder. IMPRESSION: Osseous metastatic disease. POS: JAIRO
--- NOTE | 2017-12-04 20:24 | PRG ---
DATE OF SERVICE: 12/04/2017 SUBJECTIVE: The patient continues to have some pain in the right pelvis and hip, which is limiting h er mobility. It is somewhat better controlled with ibuprofen. We tried morphine overnight and that really did not help her very much. She denies any headache or blurry vision. She denies any right u pper quadrant abdominal pain. OBJECTIVE: VITAL SIGNS: Blood pressures are one teens to 130s over 80s to 90s. GENERAL: This is a well-developed, well-nourished female in no apparent distress. HEENT: Unremarkable. HEART: Regular rate and rhythm with no murmurs. LUNGS: Clear to auscultation bilaterally. ABDOMEN: Soft, nontender, nondistended with normoactive bowel sounds. Uterine fundus is firm and be low the umbilicus. EXTREMITIES: Show no clubbing, cyanosis, or edema. She does have tenderness in the lumbar spine and right hip region not so much on palpation, but definitely with movement of the leg and certain postu res. LABORATORY DATA: Labs are remarkable for mild hyponatremia at 135, hypercalcemia and elevated liver function tests. INR is 1.1. Platelets are 220. MRI of the lumbar spine and pelvis showed diffuse m etastatic disease. CT of the chest, abdomen, and pelvis showed a mass in the left breast with axilla ry lymphadenopathy as well as tumor burden in the liver and retroperitoneal lymph nodes. She also haile d some ascites fluid in the abdomen. MRI of the brain with contrast did not show metastatic disease in the brain. ASSESSMENT: This is a 32-year-old female who is 7 days with what appears to be meta static breast cancer. 1. Dr. Goldstein performed a bedside biopsy today confirming malignancy. This was discussed at length with the patient and her this afternoon. Additional testing on the biopsy specimen will be back for a couple of days. 2. Diffuse metastatic disease. Dr. Cruz has been consulted to see if radiation might alleviate angelito e of her pain. Dr. Pardo is on consult and will formulate a chemotherapy plan for the patient. Sh e is undergoing a bone scan this afternoon to further assess end-stage the tumor. 3. state. The patient is doing well from a post- standpoint, she did come in with what appeared to be an eclamptic seizure, but with tumor burden, it is unclear whether the seizure wa s truly eclampsia or related to the cancer. The MRI did not show intracranial metastases. She has h ad no further signs of eclampsia and she did receive magnesium for 24 hours. 4. Elevated blood pressure. Her blood pressures are kind of up and down. She has been getting Proc ardia and I did give a single dose of hydralazine last night for one elevated blood pressure. She re sponded well to the hydralazine and has not required additional blood pressure medicines today. 5. Discharge planning. Patient plans to go home, the only equipment that she might need a grab bar in the bathroom and a shower chair. She states that she has a walker and feels like she can get from the bed to the bathroom easily. We do not have stairs in their home. 6. Prognosis is dependent on additional findings on the biopsy. This was discussed with the patient and her as well as discussed with Dr. Pardo and Dr. Goldstein. We will await the additional testing on the biopsy specimen.
[2017-12-04] MEDS ORDERED: Enoxaparin Sodium 30 MG/0.3 ML SYRINGE SC SCH (21:00)
--- NOTE | 2017-12-04 21:09 | CON ---
DATE OF CONSULTATION: 12/04/2017 REASON FOR CONSULTATION: Ms. Hunter is a 32-year-old female who likely has been undiagnosed with a stage IV, T4N1M0 breast cancer. HISTORY OF PRESENT ILLNESS: Ms. Hunter recently delivered her third child. This was approximately 7 days ago. Apparently sometime during her , she thought she felt a mass in the breast. Per patient, this was negative. She then around the first of the year began having problems with pain in the lower back radiating down the right leg. This was presumed to be from a sciatica from her . She saw Dr. Bhandari for this. For about the past month, she has needed help with a walker to get around. She delivered uneventfully. However, her lower back and right leg pain did not improve. She then had a seizure after she had been home for a couple of days which caused her to be readmitted to the hospital. She had a CT scan of the head which shows some low density areas which was concerning for a posterior reversible encephalopathy syndrome. MRI of the brain was recommended. While she is here in the hospital , she has had no further seizures. Her seizures have been controlled with magnesium sulfate. She then had a workup of her back pain also. MRI of the brain again showed numerous small patchy areas with foci of edema concerning for posterior reversible encephalopathy syndrome. However, MRI of the lumbar spine and pelvis showed multiple areas that looked consistent with metastatic disease. In the L3 vertebral body, there was some encroachment into the canal and epidural narrowing. There was a lesion in the upper sacrum that was pressing on the right S1 nerve root. There were multiple lesions in the pubic rami concern for pathological fracture in the pubic ramus. Repeat MRI of brain with contrast did not demonstrate any metastatic lesions. She underwent a CT scan of the chest, abdomen, and pelvis. This showed diffuse lesions in the liver consistent with metastatic disease. There was ascites. There was retroperitoneal adenopathy. There were multiple lytic lesions in the bone. In the left breast, there was skin thickening and a hyperdense mass. There were enlarged left axillary lymph nodes. Concern was for breast cancer. She was seen by Emily Yepez/Dr. Pardo. She also was seen by Dr. Goldstein and earlier today underwent a breast biopsy. Pathology results are pending. She did have a bone scan which confirmed multiple lesions consistent with metastasis. I have been asked to see her to discuss her options with radiation. Presently, she reports the only area of pain is in the lower back radiating down into the right leg. She is able to ambulate with the use of a walker. She is not having difficulty with urination or with her bowel movements. She has no recent weight loss. She voices no other complaints. It should be noted that she had an MRI of the brain with contrast that showed no brain metastasis. PAST MEDICAL HISTORY: 1. D&C x1. 2. She denies other medical or surgical problems. MEDICATIONS: Hydrocodone, vitamin, Lovenox, magnesium hydroxide, and Procardia. ALLERGIES: No known medical allergies. SOCIAL HISTORY: She lives at home with her . She is a [id number] mom. She does have 3 children. She has no cigarette use and rarely drinks alcohol. FAMILY HISTORY: Her maternal grandmother had benign breast biopsy. Her maternal grandfather had colon cancer. There is no other family history of breast or ovarian cancer. REVIEW OF SYSTEMS: Twelve system review of systems is otherwise negative. PHYSICAL EXAMINATION: VITAL SIGNS: Height 5 feet 4 inches, weight 163 pounds, blood pressure 115/66, pulse is 100, respirations are 20, temperature 98.5. GENERAL: She is alert and oriented and in no apparent distress. She is well- developed and well-nourished. Karnofsky performance status is an 80%. HEENT: Eyes: Pupils are equal, round, reactive. Extraocular movements are intact. ENT: Oral cavity and oropharynx normal without lesion or erythema. Palate elevates symmetrically. Gingiva is intact. NECK: Supple, without cervical or supraclavicular adenopathy. No thyromegaly. Larynx is midline. LUNGS: Breathing nonlabored. Clear to auscultation and percussion. HEART: Regular rate and rhythm without murmur. No lower extremity edema. BACK: No tenderness on fist percussion of her spine. ABDOMEN: No axillary or inguinal adenopathy. BREASTS: Left breast reveals a large palpable mass in the upper outer quadrant. There is edema of the left breast. ABDOMEN: Soft, nontender, nondistended. Liver is large and palpable. She does appear to have ascites. She also has changes. SKIN: Without rash or purpura. NEUROLOGIC: Cranial nerves II-XII grossly intact. Motor strength is 5/5 in both upper and lower extremities in all muscle groups tested. Reflexes are normal and symmetrical in all extremities except for at the right knee where they are diminished. Gait was not tested. LABORATORY AND X-RAY FINDINGS: CBC: White blood cell count of 10,000 with hemoglobin of 12.3, hematocrit of 37.8. Platelet count 231,000. Chemistry group revealed normal electrolytes. Creatinine was normal at 0.71. Calcium was elevated at 10.9 and bilirubin was elevated at 1.7. Total protein was decreased at 5.9 and albumin was decreased at 2.5. Alkaline phosphatase is elevated at 732, AST elevated at 427, ALT elevated at 117. Biopsy from the breast is pending. RADIOLOGIC: MRI of the brain, MRI of the lumbar spine, MRI of the pelvis, CT scan of the chest, abdomen, and pelvis, and bone scan were all personally reviewed. Again, she has skin thickening on the left breast with a visible mass in the breast on CT scan. She has left axillary adenopathy. She has multiple lytic lesions in the bone including the pubic ramus, lumbar and thoracic spine. In the L3 vertebral body, there is narrowing of the epidural space. She has a lesion on the right side of the sacrum, which is pressing on the S1 nerve root. She has multiple lesions in the pubic ramus. Bone scan confirms the metastatic lesions. ASSESSMENT: Ms. Hunter is a 32-year-old female with what appears to be metastatic breast cancer. This appears to be a stage, T4N1M1 lesion. PLAN: I had a long discussion with Ms. Hunter and her regarding her diagnosis, prognosis, prognostic factors, and treatment options. We need to get the biopsy results. Specifically, we need to not only confirm that this is metastatic breast cancer, but also get the receptor analysis including estrogen and progesterone receptor and HER2 receptor. She has a large systemic burden. She is also symptomatic from her bone metastasis in the lower lumbar spine and sacral region. I believe this is causing sciatica from the S1 lesion. She has no evidence of spinal cord compression. I have briefly discussed the case with Dr. Pardo. I will discuss with her the elevated calcium. Options for treatment may depend on the results of the biopsy. With her large systemic burden, especially since her liver has such extensive metastatic disease, she really needs to begin systemic chemotherapy fairly soon. The role of radiation would be primarily to palliate her lower back pain and try and improve her sciatica. It would be very difficult to deliver radiation therapy at the same time as chemotherapy. This will be coordinated with Dr. Pardo. I did discuss with Ms. Hunter and her a possible course of radiation therapy. The logistics of radiation as well as the benefits and risks of treatment were discussed. Side effects would include but not be limited to skin reaction, fatigue, lower blood counts, nausea, vomiting, diarrhea, and small risk of damage to her intestines or other structures which receive radiation therapy. Time was taken to answer questions regarding breast cancer and regarding possible treatment options at this point. We will await the results of the biopsy and then make a final decision regarding how best to proceed with treatment in conjunction with Dr. Pardo. Thank you for this interesting consultation. ISAK
[2017-12-05] MEDS: Morphine 5 MG/ML SYRINGE SLOW IVP PRN (00:21)
--- NOTE | 2017-12-05 02:44 | CON ---
DATE OF CONSULTATION: 12/04/2017 CONSULTING PHYSICIAN: Eulalio Donovan M.D. REASON FOR CONSULTATION: Suspected metastatic left breast cancer. HISTORY OF PRESENT ILLNESS: Patient is a very pleasant, but unfortunate 32-year-old white female. S he is day #5, having given to her third child within the last week. She apparently had some complaints of left breast abnormality and abdominal and back discomfort during her . Left breast ultrasound obtained in August was read as nonremarkable. Most of her other symptoms potentially seemed to be consistent with related symptoms. She returned to the emergency room on 12/03/2017 following a seizure at home. CT scan of the brain w as obtained and was felt to potentially reveal evidence of metastatic lesions to the brain. For this reason, a CT scan of chest, abdomen, and pelvis was obtained. This revealed dominant abnormalities of the left breast, liver, and pelvis. The left breast had extensive skin thickening with a dominant mass in the upper outer left breast. T here was also noted to be left axillary lymphadenopathy. The liver was full of innumerable apparentl y metastatic lesions. The pelvis was noted to have metastatic lesions involving both the inferior an d superior pubic rami. I am consulted at this time to hopefully be able to obtain breast biopsies for diagnosis in order to consider treatment options. Patient notes an easily palpable mass in the upper outer left breast, between the 1 and 2 o'clock rad analisa. PAST MEDICAL HISTORY: Essentially unremarkable. PAST SURGICAL HISTORY: D and C x2 and wisdom tooth extraction. ALLERGIES: No known drug allergies. CURRENT MEDICATIONS: Iron, aspirin, hydrocodone. PRIMARY CARE PHYSICIAN: Eulalio Donovan M.D. PERSONAL/SOCIAL HISTORY: She is and is present at bedside. She is staying at home w ith mother. She does not smoke and drinks alcohol occasionally when she is not . FAMILY HISTORY: There is no known history of breast cancer in the family. REVIEW OF SYSTEMS: Ten system review is negative other than as mentioned above. PHYSICAL EXAMINATION: VITAL SIGNS: She is afebrile. Vital signs within normal limits. GENERAL: She is a well-developed, well-nourished, pleasant, and alert white female resting in bed wi th her at bedside. She is alert and oriented x3 and cooperative. HEAD, EYES, EARS, NOSE, AND THROAT: Unremarkable. NECK: Supple, without mass or tenderness. LUNGS: Clear to auscultation throughout. CARDIAC: Regular rate and rhythm without murmur. ABDOMEN: Soft, nontender, nondistended. I am unable to definitely palpate the liver. Pelvis is not significantly evaluated. BREASTS: Her right breast is engorged as typical for a recent female. There is no domina nt visible or palpable lesion within the right breast or axilla. The left breast is significantly ed ematous in comparison to the right. There is obvious Peau D'Q[place]man change. There is a dominant palp able mass in the upper outer left breast that appears to be about 3-4 cm in size. I am unable to pal [place] the lymphadenopathy that is visible on CT scan. ASSESSMENT: Patient with an unfortunate extensive metastatic disease involving the bone and liver. She has significant left breast abnormality that based upon the physical examination with Peau D'Issac ge change in the CT appearance, this appears to be consistent with inflammatory breast cancer. PLAN: I recommend left breast ultrasound-guided breast biopsy. I discussed this in detail with the patient and her . I will perform this at bedside on the floor.
--- NOTE | 2017-12-05 02:48 | OP ---
PREOPERATIVE DIAGNOSES: Left breast mass, suspected left breast cancer with probable inflammatory co mponent. POSTOPERATIVE DIAGNOSES: Left breast mass, suspected left breast cancer with probable inflammatory c omponent. PROCEDURE PERFORMED: Ultrasound-guided left breast core needle biopsy. SURGEON: Arthur Goldstein M.D. ANESTHESIA: 1% lidocaine with epinephrine. INDICATIONS: The patient with a dominant palpable abnormality in the left breast and likely extensiv e metastatic disease to liver and bones. PROCEDURE IN DETAIL: Informed consent was obtained. She was placed in the supine position in her be d on the floor. The left breast was examined with ultrasound. In the area of the dominan t abnormalities, there is a lobulated hypoechoic lesion that appears to emanate from the deeper hyper echoic tissue that appears to have white speckles, potentially consistent with calcifications. The t ransverse diameter appears to be about 3.5 cm. There is obvious skin thickening while examining the lower breast, but cannot discern definite masses within the lower breast. I decided upon a lateral approach. Using ultrasound guidance, cleansed the skin with alcohol and loc ally anesthetized with 1% lidocaine with epinephrine. A small stab incision was created through whic h a 14-gauge bard core biopsy needle was advanced into the breast. Under ultrasound guidance, I obta ined 5 separate core biopsies, both with superficial hypoechoic area in the deeper hypoechoic area. These were submitted both for frozen section and permanent section in both dry and formalin containin g specimen cups. The patient had no discomfort with biopsy. There was minimal blood loss. Band-Aid dressing was appl ied. There were no complications. Patient tolerated well. The specimen that I submitted for frozen section revealed obvious malignant disease. Based upon this finding, I will wait for the final pathology to include the breast profile to help determine treatme nt options.
[2017-12-05] MEDS: Ibuprofen 800 MG TAB PO SCH ×2 (06:52→14:13)
--- NOTE | 2017-12-05 08:16 | PDOC.EVN ---
Event Note - Event Note Event Note: OB Follow up chart check: Saw MRI repeat...no intracranial evidence of metastatic disease.
--- NOTE | 2017-12-05 08:35 | PRG ---
DATE OF SERVICE: 12/05/2017 Ms. Hunter is doing well following her left breast biopsy performed yesterday. The pathology from the biopsy did reveal malignancy in the left upper breast. Final pathology and breast profile are of santa iqbal still pending. The patient has no complaints regarding her biopsy site. The Band-Aid is still intact. She had some minor discomfort. PHYSICAL EXAMINATION: VITAL SIGNS: On examination, she is afebrile. Vital signs are normal. BREASTS: Left breast is without evidence of bruising or tenderness and the Band-Aid is intact. ASSESSMENT: She is doing well following left breast biopsy. Final pathology is pending. She will f ollow up with Dr. Pardo and Dr. Cruz regarding her oncologic issues. I will be available to put a MediPort in should she decide to proceed with this for chemotherapy administration. She is certainl y stable for discharge from a surgical standpoint.
[2017-12-05] MEDS ORDERED: Zoledronic Acid 4 MG, Admixture Fee 1 EACH in Sodium Chloride 0.9% 100 ML IVPB SCH (09:00)
[2017-12-05] MEDS: Prenatal Vitamin 1 TAB PO SCH (09:10)
[2017-12-05] MEDS: Docusate Calcium (SURFAK) 240 MG CAP PO SCH (09:10)
[2017-12-05] MEDS: NIFEdipine XL 30 MG TAB PO SCH (09:10)
[2017-12-05 09:12] VITALS: BP 133/93
[2017-12-05] MEDS: Ferrous Sulfate 325 MG TAB PO SCH ×2 (09:41→17:13)
[2017-12-05] MEDS: Ondansetron HCl/PF 4 MG/2 ML Vial IVP PRN (10:57)
[2017-12-05 13:46] VITALS: TEMP 97.7
--- NOTE | 2017-12-05 15:22 | ULT ---
BILATERAL LOWER EXTREMITY VENOUS DOPPLER ULTRASOUND: History Right leg pain. TECHNIQUE: Triplett scale, color flow, and spectral Doppler imaging of the deep venous systems of the lower extremit ies was performed bilaterally. FINDINGS: There is good flow, compression, and augmentation noted in the common femoral, femoral, deep femoral, popliteal, posterior tibial, and greater saphenous veins on either side. IMPRESSION: No evidence of deep vein thrombosis in either lower extremity. POS: [facility]
--- NOTE | 2017-12-06 08:35 | PRG ---
DATE OF SERVICE: 12/05/2017 TIME 12:30 p.m. SUBJECTIVE: The patient reports that her pain is under control with Vicoprofen and ibuprofen alterna ting. She does appear more comfortable in the bed. She denies any headache, visual changes or right upper quadrant pain. She denies any swelling in the legs. She does still complain of some mild zane f soreness that started initially after her seizure several days ago. OBJECTIVE : VITAL SIGNS: Blood pressure is 130s/90s, respirations are 18, O2 sat is 97% on room air, pulse is ar ound 100, and she is afebrile. GENERAL: She is well-developed, well-nourished, in no apparent distress. HEENT: Unremarkable. HEART: Regular rate and rhythm with no murmurs. LUNGS: Clear to auscultation bilaterally. ABDOMEN: Soft, nontender, slightly distended with hypoactive bowel sounds. EXTREMITIES: Show no clubbing, cyanosis, or edema. There is some mild tenderness with palpation of the calves. Reflexes are normal. New studies include a bone scan which showed uptake in the ribs, right sacrum and inferior pubic rami . Notably the lytic lesions in the spine do not demonstrate increased uptake on the bone scan. Dopp ler of the bilateral lower extremities is negative for clot. Echocardiogram is pending at the time o f this dictation. LABS: There are no new labs today. Calcium yesterday was 10.9. ASSESSMENT: This is a 32-year-old female G5, P3-0-2-3 with metastatic breast cancer. 1. From a cancer standpoint, Dr. Pardo and Dr. Cruz have both been consulted. Dr. Cruz does fee l like palliative radiation therapy would be helpful potentially to alleviate some pressure on her ri ght sacral nerve root that seems to be causing the bulk of her pain. Dr. Pardo has arranged for fo llowup with the patient on Saturday to discuss treatment options and start on a treatment plan. Biopsy results should be final by Saturday afternoon. 2. Eclamptic seizure. The patient had no other signs of eclampsia and her blood pressure has been v santiago well controlled for the last couple of days. We will send her home with Toprol-XL 50 mg and foll ow up with me in 2-3 weeks for the blood pressure. 3. Echocardiogram has been done and is pending. This is just in anticipation of potential chemother apy agents. 4. Limited mobility secondary to pain. For this reason, we will send her home with Lovenox as well as set up home PT to come out to the house and work with her to avoid any further deconditioning. At this point in time she has been essentially bedridden for the last 3 weeks. 5. . Her bleeding is subsiding. Her course, is essentially normal. She is pu mping the right breast. A consultation with the child development consultant advised that she stop stimulati ng the left breast and wean from that side since the cancer is present there and the breasts is not p roducing normally. DISPOSITION: The patient will be discharged home today 12/05/2017 to follow up with Dr. Pardo on , to follow up with Dr. Cruz on Saturday and to follow up with me in 2-3 weeks.
--- NOTE | 2017-12-06 11:56 | DIS ---
DATE OF ADMISSION: 12/01/2017 DATE OF DISCHARGE: 12/05/2017 DISCHARGE DIAGNOSES: 1. Metastatic breast cancer with bone and liver involvement. 2. eclampsia, resolved. 3. High blood pressure. 4. Sciatic nerve pain from metastatic disease. DISCHARGE MEDICATIONS: 1. Lovenox 30 mg subcutaneously once a day. 2. Vicoprofen 7.5/200 one p.o. q.6 hours p.r.n. for pain. 3. Ibuprofen 800 mg p.o. q.8 hours p.r.n. 4. Toprol-XL 50 mg p.o. daily. She can also continue her vitamin as well as her aspirin. DISCHARGE DIET: Regular diet. DISCHARGE PRECAUTIONS: Fall precautions. Use a walker in the household to get around. Her will be installing grab bars in the bathroom. We offered a wheelchair and she will let me know if th ey desire that at a future time. DISCHARGE REFERRALS: She is being referred to physical therapy. We will set that up as an outpatien t. DISCHARGE FOLLOWUP: The patient will follow up with Dr. Pardo on Saturday, 12/09. She will follow u p with Dr. Cruz on 12/06 for radiation therapy and she will follow up with me in 2-3 weeks for her b lood pressure. They have also chosen to seek consultation at [facility] and they will make those ar rangements for follow up as well. We provided records for them. BRIEF HOSPITAL COURSE: This is a 32-year-old G5, P3 who presented 6 days with what appear ed to an eclamptic seizure. At that time, she did have severe range of blood pressures and was treat ed as a patient with eclampsia. She had a CT scan of her brain done in the ER that did not show any masses and showed likely posterior reversible encephalopathy, which would be consistent with eclampsi a. She did undergo brain MRI at that time without contrast and it confirmed that finding. She was a dmitted to Labor and Delivery and treated with magnesium for 24 hours, which resolved the eclampsia. Notable other findings at that time were elevation of her liver function tests. Renal function was normal and platelets were normal as well. Notably, she did not have any issues with blood pressure d uring her . She had some isolated high blood pressure when she first arrived to labor and d elivery for labor; however, these resolved after epidural anesthesia and she was in a significant marily unt of pain at the time. Once the eclampsia was under control, the patient was noted to be in significant pain from her right hip and low back and right sciatic area. This is something that started during late . She had seen Orthopedics and so Dr. Bhandari was again consulted. He ordered x-rays, which did not really s how anything too significant except for a questionable lytic lesion in the left pelvis. For that michele son, an MRI of the spine and pelvis was ordered. This showed multiple areas of what appeared to be m etastatic disease in the inferior pubic rami to sacrum and the lumbar spine. Following these finding s, I discussed the findings with the patient and her . We consulted Oncology and began a [facility] er workup. She underwent CT of the chest, abdomen and pelvis, which showed a mass in the left breast as well as metastatic disease in the liver, the retroperitoneal lymph nodes and the bone. Surgery was consulted for biopsy of the left breast, which they performed at bedside without complication. It did confirm a ductal breast cancer, which is the source of her metastases as well. Final pathology on that is p ending at the time of this dictation. She underwent bone scan and consultation with the radiation oncologist to see if he could palliate so me of her pain. It does appear that there is a metastatic focus putting pressure on her right S1 ner ve root, which is likely a significant source of her pain at this time and limiting her mobility. Dr Odalis Cruz does feel like XRT will be helpful for at least palliating that. After all the appropriate studies were done, the patient and her asked to go home and she was medically stable to do so. So on 12/05/2017, she was discharged home in the care of her to follow up within just a couple of days with Oncology.
== END 2017-12-05 17:40 | disposition home or self-care (01) | DRG 776 ==
LOC: ERS 12:22 → L&D 13:15 → 3SW 12-02 18:05
PROVIDERS: ADMIT Family Medicine; ATTEND Family Medicine
PROC: 0HBU3ZX Excision of Left Breast, Percutaneous Approach, Diagnostic (ICD-10-PCS; principal; 2017-12-04)
DX: O9A Maternal malignant neoplasms, traumatic injuries and abuse classifiable elsewhere but complicating pregnancy, childbirth and the puerperium (principal); C77.2 Secondary and unspecified malignant neoplasm of intra-abdominal lymph nodes; C78.7 Secondary malignant neoplasm of liver and intrahepatic bile duct; C79.51 Secondary malignant neoplasm of bone; C50.412 Malignant neoplasm of upper-outer quadrant of left female breast; E83.52 Hypercalcemia; O15.2 Eclampsia complicating the puerperium; R18.8 Other ascites; E87.1 Hypo-osmolality and hyponatremia; O99.285 Endocrine, nutritional and metabolic diseases complicating the puerperium
CPT/HCPCS: 36415; 51702; 70450; 70551; 70552; 71260; 72100; 72158; 72170; 72197; 74177; 77014; 77290; 77307; 77334; 78306; 80053; 80306; 80307; 81003; 83735; 85025; 85610; 85730; 88305; 88331; 88334; 88341; 88342; 93005; 93306; 93970; 94760; 96361; 96365; J2270; A4216; A9503; J0360; J0595; J1650; J2001; J2405; J2550; J3475; J3489; J7050

== ENCOUNTER 2017-12-13 10:07 | Day surgery (SDC) | payer BC ==
[2017-12-12 11:43] VITALS: BMI 22.4
[2017-12-13] MEDS ORDERED: CEFAZOLIN/Water 2 GM/20 ML SYRINGE ONE (10:50)
[2017-12-13] MEDS ORDERED: Ketorolac Tromethamine 30 MG/ML VIAL ONE (10:51)
[2017-12-13] MEDS ORDERED: Midazolam HCl 2 mg/2 ml Vial ONE (11:46)
[2017-12-13] MEDS ORDERED: Fentanyl 100 MCG/2 ML VIAL ONE (11:46)
[2017-12-13] MEDS ORDERED: Propofol 500 MG/50 ML VIAL ONE (11:46)
[2017-12-13] MEDS ORDERED: Ondansetron HCl/PF 4 MG/2 ML Vial ONE ×2 (11:47→15:01)
[2017-12-13] MEDS ORDERED: Bupivacaine 0.25% HCL 30 ML VIAL ONE (12:20)
[2017-12-13] MEDS ORDERED: Lidocaine 1% w/Epinephrine 1:200K 30 ML VIAL ONE (12:20)
[2017-12-13] MEDS ORDERED: Promethazine HCl 25 MG/ML VIAL ONE ×2 (12:25→13:45)
--- NOTE | 2017-12-13 14:59 | RAD ---
PORTABLE CHEST 1 VIEW: Date: 12/13/17 Time: 1400 hours HISTORY: Postop MediPort placement. FINDINGS/IMPRESSION: There is a right subclavian Port-A-Cath with tip in the projection of the SVC close to the cavoatrial junction. No pneumothoraces are seen. There is left lower lobe consolidation with accompanying effus ion. POS: [facility]
[2017-12-13] MEDS ORDERED: PROPOFOL 200 MG/20 ML VIAL ONE (15:01)
--- NOTE | 2017-12-16 15:08 | OP ---
DATE OF OPERATION: 12/13/2017 PREOPERATIVE DIAGNOSIS: Metastatic breast cancer. POSTOPERATIVE DIAGNOSIS: Metastatic breast cancer. OPERATION PERFORMED: Placement of right subclavian MediPort. SURGEON: Arthur Goldstein M.D. ANESTHESIA: Total intravenous anesthesia. INDICATIONS: The patient is a 32-year-old white female, who was recently diagnosed with widely metas tatic left breast cancer. She presents at this time for placement of MediPort for chemotherapy. DESCRIPTION OF OPERATION: Informed consent was obtained. The patient was taken to the operating fiorella m where total intravenous anesthesia was obtained with the patient in supine position. Right pericla vicular area was prepped with ChloraPrep and draped in sterile fashion. Local anesthetic was infiltr ated and a large gauge needle was passed under the clavicle in the subclavian vein. Guidewire was pa ssed through the needle and fluoroscopically confirmed to enter the superior vena cava. Additional l ocal anesthetic was infiltrated and transverse incision was created based on needle insertion site. A subcutaneous pocket was dissected inferiorly. Introducer dilator was passed over the guidewire und er fluoroscopic guidance. The guidewire and dilator were removed, and the catheter was passed throug h the introducer. The tip of the catheter was positioned at the atriocaval junction and the catheter was trimmed to the appropriate length and secured to the locking hub of the MediPort. The port was then placed in the subcutaneous pocket where it was secured to the pectoral fascia with 2 interrupted sutures of 3-0 Prolene. The incision was then closed in layers with 3-0 and 4-0 Monocryl. Addition al local anesthetic was infiltrated. The port was cannulated with a Campbell needle and it aspirated bl ood freely and was flushed with heparinized saline. Dermabond was placed externally on the skin inci dillon. There were no complications. Blood loss was negligible. The patient tolerated the procedure well and was taken to recovery room in stable condition. FINDINGS: I used a low-profile power compatible MediPort. Her anatomy was within normal limits and there were no problems during the procedure.
--- NOTE | 2017-12-17 13:49 | OP ---
DATE OF PROCEDURE: 12/13/2017 PREOPERATIVE DIAGNOSIS: Metastatic left breast cancer. POSTOPERATIVE DIAGNOSIS: Metastatic left breast cancer. OPERATION PERFORMED: Placement of a right subclavian low profile power compatible MediPort. SURGEON: Dr. Arthur Goldstein. ANESTHESIA: Total intravenous anesthesia per Emily Aguilera CRNA with infiltration of local anestheti c. INDICATIONS: Patient is a 32-year-old white female who presents with widely metastatic left breast c ancer. MediPort placement is requested for chemotherapy administration. PROCEDURE IN DETAIL: FINDINGS: The surgery was uneventful. Her anatomy was usual. There was essentially no blood loss, no complications. The low profile port was selected.
== END 2017-12-13 14:55 | disposition home or self-care (01) ==
LOC: SDC 10:07
PROVIDERS: ATTEND Specialist
PROC: B516ZZA Fluoroscopy of Right Subclavian Vein, Guidance (ICD-10-PCS; principal; 2017-12-13)
PROC: 05H533Z Insertion of Infusion Device into Right Subclavian Vein, Percutaneous Approach (ICD-10-PCS; principal; 2017-12-13)
DX: O9A Maternal malignant neoplasms, traumatic injuries and abuse classifiable elsewhere but complicating pregnancy, childbirth and the puerperium (principal); C50.912 Malignant neoplasm of unspecified site of left female breast; Z79.01 Long term (current) use of anticoagulants; Z79.899 Other long term (current) drug therapy; Z98.890 Other specified postprocedural states
CPT/HCPCS: 71045; 76000; C1788; J0131; J1642; J1885; J2250; J2405; J2550; J2704; J3010; S0020

== ENCOUNTER 2017-12-23 14:13 | Emergency (ER) | payer BC ==
--- NOTE | 2017-12-23 15:49 | RAD ---
CHEST 1 VIEW: Date: 12/23/17 HISTORY: Dyspnea. COMPARISON: 12/13/17. HISTORY: Stage IV breast cancer. FINDINGS: There is a left-sided MediPort catheter with the distal tip projecting over the superior vena cava. N o pneumothorax. There are pleural and parenchymal changes of left hemithorax, similar to the previous examination. St able aeration of the right lung. No pneumothorax or osseous abnormalities. IMPRESSION: Persistent pleural and parenchymal changes left lung base. POS: [facility]
[2017-12-23 15:55] LABS: ALT (SGPT) 520 U/L (8-55); AST (SGOT) 1927 U/L (5-34); Albumin 2.1 g/dL (3.5-5.0); Alkaline Phosphatase 1106 U/L (40-150); Anion Gap 11 mmol/L (10-20); BUN (Urea Nitrogen) 12 mg/dL (7.0-18.7); Bilirubin, Total 2.2 mg/dL (0.2-1.2); Calc. Creatinine Clearance 0 mL/min (70-130); Carbon Dioxide 24 mmol/L (22-29); Chloride 102 mmol/L (98-107); Estimated GFR-MDRD Greater than 90; Globulin 2.4 g/dL (2.4-3.5); Glucose 102 mg/dL (70-105); Potassium 3.7 mmol/L (3.5-5.1); Protein, Total 4.5 g/dL (6.0-8.3); Sodium 133 mmol/L (136-145)
[2017-12-23 16:10] LABS: Anisocytosis SLIGHT = 6-15 cells (100X) (0-5/hpf); Band 8 % (5-11); Hemoglobin 9.5 g/dL (12.0-16.0); Lymphocytes 23 % (21-51); MDiff Complete? YES; Mean Corpuscular HGB CONC 32.8 g/dL (32.0-36.0); Mean Corpuscular Hemoglobin 29.5 pg (27.0-31.0); Mean Corpuscular Volume 90.1 fl (81.0-99.0); Mean Platelet Volume 10.8 fL (7.4-10.4); Metamyelocyte 2 % (0-0); Monocytes 15 % (0-10); Neutrophil 52 % (42-75); Nucleated RBC 1 % (0); PLT Morphology Comment Appears Decreased; Platelet Count 64 thou/uL (130-400); RBC Distribution Width 15.6 % (11.5-14.5); Red Blood Cell (RBC) Count 3.21 mill/uL (4.20-5.40); White Blood Cell (WBC) Count 4.2 thou/uL (4.8-10.8)
== END 2017-12-23 17:10 | disposition home or self-care (01) ==
LOC: ERS 14:13
DX: R18.8 Other ascites (principal); C79.81 Secondary malignant neoplasm of breast; F32.9 Major depressive disorder, single episode, unspecified
CPT/HCPCS: 36415; 71045; 80053; 85025; 85652; 85730

== ENCOUNTER 2017-12-29 23:20 | Inpatient (IN) | payer BC ==
[2017-12-30] MEDS ORDERED: Fentanyl 100 MCG/2 ML VIAL ONE (00:02)
[2017-12-30 00:06] LABS: Hemoglobin 3.3 g/dL (12.0-16.0)
[2017-12-30 00:10] LABS: Prothrombin Time 32.2 SEC (12.0-14.7)
[2017-12-30 00:11] LABS: PTT 78.5 SEC (22.9-36.1)
[2017-12-30 00:22] LABS: Band 22 % (5-11); Hypochromia SLIGHT = 6-15 cells (100X) (0-5/hpf); Lymphocytes 21 % (21-51); MDiff Complete? YES; Mean Corpuscular HGB CONC 31.6 g/dL (32.0-36.0); Mean Corpuscular Hemoglobin 29.4 pg (27.0-31.0); Mean Corpuscular Volume 93.1 fl (81.0-99.0); Mean Platelet Volume 10.3 fL (7.4-10.4); Metamyelocyte 1 % (0-0); Microcytosis SLIGHT = 6-15 cells (100X) (0-5/hpf); Monocytes 5 % (0-10); Myelocyte 1 % (0-0); Neutrophil 50 % (42-75); Nucleated RBC 4 % (0); PLT Morphology Comment Appears Decreased; Platelet Count 94 thou/uL (130-400); Polychromasia SLIGHT = 2-3 cells (100X) (0-2/hpf); RBC Distribution Width 21.8 % (11.5-14.5); Tear Drops SLIGHT = 2-5 cells (100X) (0-1/hpf); White Blood Cell (WBC) Count 22.8 thou/uL (4.8-10.8)
[2017-12-30 00:31] LABS: ALT (SGPT) 529 U/L (8-55); AST (SGOT) 1675 U/L (5-34); Albumin 1.7 g/dL (3.5-5.0); Alkaline Phosphatase 1096 U/L (40-150); Anion Gap 27 mmol/L (10-20); BUN (Urea Nitrogen) 37 mg/dL (7.0-18.7); Bilirubin, Total 5.1 mg/dL (0.2-1.2); CK (CPK) 2092 U/L (29-168); Calc. Creatinine Clearance 0 mL/min (70-130); Carbon Dioxide 12 mmol/L (22-29); Chloride 96 mmol/L (98-107); Estimated GFR-MDRD 73; Globulin 1.8 g/dL (2.4-3.5); Glucose 77 mg/dL (70-105); Lipase 144 U/L (8-78); Potassium 4.8 mmol/L (3.5-5.1); Protein, Total 3.5 g/dL (6.0-8.3); Sodium 130 mmol/L (136-145)
[2017-12-30] MEDS ORDERED: Morphine 4 MG/ML VIAL ONE (00:58)
[2017-12-30] MEDS ORDERED: Ondansetron HCl/PF 4 MG/2 ML Vial ONE (00:59)
[2017-12-30] MEDS ORDERED: Acetaminophen 325 MG TAB PO PRN (02:26)
[2017-12-30] MEDS ORDERED: Milk Of Magnesia 30 ML UDCUP PO PRN (02:26)
[2017-12-30] MEDS ORDERED: Piperacillin/Tazobactam 3.375 GM in Sodium Chloride 0.9% 100 ML IVPB SCH (02:45)
--- NOTE | 2017-12-30 03:27 | HP ---
PRIMARY CARE PHYSICIAN: Susan Ontiveros MD PRESENTING COMPLAINT: Feel weak. HISTORY OF PRESENT ILLNESS: Ms. Elsa Tenorio is a 32-year-old female with stage IV breast cancer with metastasis to multiple sites, who presents to the emergency room with complaints of increased lethargy, soreness, poor appetite, and shortness of breath on minimal exertion. There is no history of fever, chills, SOB or cough. She has no chest pain, abdominal or urinary symptoms. Her last chemotherapy was about 2 weeks ago on 12/18/2017. At the ER, she was hypothermic , tachycardic, had leucocytosis and elevated lactate. She was then admitted for severe symptomatic anemia and sepsis. PAST MEDICAL HISTORY: Stage IV breast cancer. PAST SURGICAL HISTORY: D&C after a miscarriage. FAMILY HISTORY: Reviewed and noncontributory. SOCIAL HISTORY: Does not smoke cigarettes, drink alcohol, or use illicit drugs. ALLERGIES: None. REVIEW OF SYSTEMS: A 12-point review of systems conducted and negative apart from as stated in the HPI. HOME MEDICATIONS: Reviewed and charted. PHYSICAL EXAMINATION: VITAL SIGNS: Patient is hemodynamically stable. GENERAL: Lethargic young lady in mild distress from pain. HEENT: Normocephalic, atraumatic. Pale, icteric. Dry mucous membranes. PERRLA, EOMI. RESPIRATORY: Vesicular breath sounds bilaterally. No wheezes or rales. CARDIOVASCULAR: S1 and S2 only. Regular rate and rhythm. No murmurs, rubs, or gallops. ABDOMEN: Full, soft, nontender, nondistended. No organomegaly. Bowel sounds are present. MUSCULOSKELETAL: No skeletal edema. Minimal lower extremity edema bilaterally. SKIN: Icteric, pale. EXTREMITIES: Cool extremities. Pulses present 2+. NEUROLOGIC: Lethargic, but is well oriented to time, place, and person. No focal deficits. PSYCHIATRIC: Normal mood and affect. LABORATORY DATA: Significant labs include lactic acid of 15, carbon dioxide at 12, elevated transaminases (this has been chronic), hemoglobin of 3.3. WBC of 22.8, platelet count of 94,000. CXR: No infiltrates. ASSESSMENT AND PLAN: 1. Sepsis: She was hypothermic, tachycardic, had leucocytosis and elevated lactate, making sepsis a legitimate concern. Started on IVF, cultures taken and Zosyn started for now. Will obtain a repeat lactate level and f/u blood cultures. The patient will be admitted to the IM. 2. Symptomatic anemia. The patient has severe anemia. Two units of PRBC have been ordered, we will transfuse and repeat hemoglobin after transfusion. Oncology consult. 3. Thrombocytopenia. Patient has had easy bruising, but no overt bleeding for now. We will monitor platelets. Place on SCDs and avoid heparin based products. 4. Stage IV carcinoma of the breast. We would ensure adequate pain control while on admission. 5. Volume depletion. The patient has dry mucous membranes. We will gently hydrate and monitor vital signs closely. MTDD
[2017-12-30] MEDS: Dextrose 5 %-0.45 % NaCl 1,000 ML IV SCH (03:44)
[2017-12-30 04:18] VITALS: BMI 29.6
[2017-12-30 04:46] LABS: Lactic Acid 15.3 mmol/L (0.5-2.2)
--- NOTE | 2017-12-30 08:22 | RAD ---
LEFT SHOULDER 3 VIEWS: Date: 12/29/17 HISTORY: Shoulder pain. COMPARISON: None. FINDINGS: There is no acute fracture or malalignment. Acromioclavicular alignment is normal. Layering left effu dillon. Scapula intact. IMPRESSION: 1. No acute fracture or malalignment of the left shoulder. 2. Layering left pleural effusion. POS: [facility]
[2017-12-30] MEDS ORDERED: Sodium Bicarb 50 MEQ/50 ML Abboject 8.4% SYRINGE IVP SCH (08:45)
--- NOTE | 2017-12-30 08:56 | RAD ---
CHEST 1 VIEW: Date: 12/30/17 HISTORY: Pain. COMPARISON: Chest radiograph dated 12/23/17. FINDINGS: There is a layering left pleural effusion. Multiple lytic foci of the thoracic spine. No displaced ri b fracture. Lytic rib metastases are present. IMPRESSION: 1. Layering left pleural effusion. 2. Osseous metastatic disease. POS: [facility]
[2017-12-30] MEDS ORDERED: Phytonadione 10 MG/ML AMP SLOW IVP SCH (09:00)
--- NOTE | 2017-12-30 09:04 | CON ---
DATE OF CONSULTATION: 12/30/2017 REASON FOR CONSULTATION: Severe anemia and metastatic breast cancer. HISTORY OF PRESENT ILLNESS: The patient is a 32-year-old young woman who delivered a child fransisco dumont on 11/28/2017. Approximately 3 months prior to delivery, she noted a small mass in the left nori st and imaging suggested mastitis. She developed increasing back pain near the end of whic h was attributed to her . She was gaining weight appropriately. She delivered vaginally wi thout complications and several days later was found to have metastatic disease in lumbosacral spine by MRI. Ultimately, a biopsy of the left breast mass was performed and showed ER/MI negative, HER-2 positive infiltrating ductal carcinoma. She was then found to have widespread liver and bone metasta sis with malignant ascites. Within the last month, combination chemotherapy consisting of Perjeta, H erceptin, and Taxotere was initiated. She has tolerated the treatment reasonably well, but continues to have difficulties with increasing abdominal girth and lower extremity edema. She presented to [facility] with severe weakness and was found to have a hemoglobin of 3.3. The white count was 22.8 with a left shift. Chemistries showed sodium 130, potassium 4.8, chloride 96, carbon dioxide 12. Th e creatinine is 0.89 and BUN 37. Lactic acid was 15. Liver function studies were significantly wors e manifested by a bilirubin of 5.1, which was about 2 within the last few weeks. AST 1675, ALT 529, alkaline phosphatase 1096 and creatinine kinase 2092. The albumin is 1.7. She was admitted for ventura sfusion and further evaluation. Cultures have been obtained and antibiotics initiated. I am asked t o see the patient to provide further management recommendations. ALLERGIES: None. MEDICATIONS: Lasix, [place] and Zofran. MEDICAL ILLNESS: She has been quite healthy with no significant medical problems. SURGERIES: She had a D&C in 2010 and 2016. SOCIAL HISTORY: She is and her is at the bedside. She has 3 children. She has neve r smoked and does not drink alcohol excessively. 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 REVIEW OF SYSTEMS: She is quite weak and frail. She complains of fatigue, hoarseness, abdominal dis comfort secondary to increased abdominal girth, back pain and some itching. PHYSICAL EXAMINATION: VITAL SIGNS: Temperature 98.1, pulse 104, respirations 20, blood pressure 124/56. GENERAL: The patient is a frail and weak woman who is pale. She is in no acute distress. She is al ert, oriented, and appropriate in conversation. HEENT: The extraocular movements are intact and the pupils are equal, round, and reactive to light. There is scleral icterus. NECK: Supple. LUNGS: Clear. CARDIOVASCULAR: Regular rate and rhythm without murmur, gallop or click. ABDOMEN: The abdomen is distended, but nontender. There is evidence of ascites. I feel no mass or hepatomegaly. EXTREMITIES: No clubbing or cyanosis. There is 3+ edema to the thighs. LYMPH: No adenopathy. MUSCULOSKELETAL: No active arthritis. NEUROLOGIC: No focal findings. LABORATORY AND X-RAY FINDINGS: See history of present illness. IMAGING: A chest x-ray was done and report is pending. IMPRESSION: 1. Widespread metastatic breast cancer with bone involvement, liver metastasis, and malignant ascite s. 2. Worsening liver function studies and markedly elevated creatinine kinase, suggesting rhabdomyolys is. 3. Severe lactic acidosis. RECOMMENDATIONS: The patient will be transfused and reassessed. IV bicarbonate will be administered . Unfortunately, the laboratory studies suggest progression in liver unless this is secondary to ane kar and general debility. Her prognosis is extremely poor. Thanks very much for allowing me to provide my recommendations. I will follow with you while she is hospitalized.
[2017-12-30] MEDS: Famotidine 20 MG TAB PO SCH ×2 (09:15→20:49)
[2017-12-30] MEDS: Docusate 100 MG CAP PO SCH ×2 (09:15→20:49)
[2017-12-30 09:41] LABS: Platelet Count 98 thou/uL (130-400); Reticulocyte Count 7.7 % (0.5-1.5)
[2017-12-30 09:48] LABS: INR-International Normal Ratio 2.7; PTT 76.1 SEC (22.9-36.1); Prothrombin Time 29.3 SEC (12.0-14.7)
[2017-12-30 09:55] LABS: Lactic Acid 9.2 mmol/L (0.5-2.2)
[2017-12-30 09:56] LABS: Anion Gap 19 mmol/L (10-20); BUN (Urea Nitrogen) 39 mg/dL (7.0-18.7); Calc. Creatinine Clearance 109 mL/min (70-130); Calcium 6.7 mg/dL (7.8-10.44); Carbon Dioxide 16 mmol/L (22-29); Chloride 98 mmol/L (98-107); Estimated GFR-MDRD 72; Glucose 117 mg/dL (70-105); LDH 2313 U/L (125-220); Potassium 4.9 mmol/L (3.5-5.1); Sodium 128 mmol/L (136-145)
[2017-12-30 10:03] LABS: Fibrinogen 87 mg/dL (253-463)
[2017-12-30] MEDS: Piperacillin/Tazobactam 3.375 GM in Sodium Chloride 0.9% 100 ML IVPB SCH ×3 (10:16→22:23)
[2017-12-30 10:17] LABS: Band 25 % (5-11); Hemoglobin 8.2 g/dL (12.0-16.0); Lymphocytes 9 % (21-51); MDiff Complete? YES; Mean Corpuscular HGB CONC 33.3 g/dL (32.0-36.0); Mean Corpuscular Hemoglobin 31.6 pg (27.0-31.0); Mean Corpuscular Volume 94.9 fl (81.0-99.0); Mean Platelet Volume 10.2 fL (7.4-10.4); Metamyelocyte 2 % (0-0); Monocytes 1 % (0-10); Myelocyte 1 % (0-0); Neutrophil 62 % (42-75); Nucleated RBC 4 % (0); PLT Morphology Comment Appears Decreased; Platelet Count 96 thou/uL (130-400); Polychromasia SLIGHT = 2-3 cells (100X) (0-2/hpf); RBC Distribution Width 15.9 % (11.5-14.5); Red Blood Cell (RBC) Count 2.61 mill/uL (4.20-5.40); White Blood Cell (WBC) Count 20.9 thou/uL (4.8-10.8)
[2017-12-30 10:57] LABS: FSP-Qualitative ABNORMAL (Normal); FSP-Semiquantitative >=5 & <20 mcg/mL (Less than 5)
[2017-12-30] MEDS ORDERED: Morphine 2 MG/ML SYRINGE SLOW IVP PRN (15:45)
[2017-12-30] MEDS: HYDROcodone/Acetaminophen 5/325 mg Tablet PO PRN (16:07)
--- NOTE | 2017-12-30 16:18 | PDOC.PN ---
- Subjective Encounter Start Date: 12/30/17 Encounter Start Time: 10:15 Subjective: pt up in bed has pain all over - Objective Vital Signs & Weight: Vital Signs (12 hours) Temp Pulse Resp BP Pulse Ox 12/30/17 11:45 97.4 F L 100 18 129/56 L 12/30/17 09:20 98.1 F 104 H 20 99 12/30/17 08:23 98.1 F 104 H 20 124/56 L 100 Weight Weight 172 lb 8 oz I&O: 12/29/17 12/30/17 12/31/17 06:59 06:59 06:59 Intake Total 0 Balance 0 Result Diagrams: 12/30/17 09:15 12/30/17 09:15 Phys Exam - Physical Examination HEENT: PERRLA Neck: no nodes Respiratory: no wheezing, no rales Cardiovascular: RRR, no significant murmur mild abd pain all over Neurological: non-focal Dx/Plan - Plan * . 1) New dx breast ca 2) Acute anemia possible hemolytic vs acute blood loss 3) elevated lfts 4) thrombocytopenia plan: pt did receive chemo a month ago. She does have metastatic disease. pt received 2units of blood. her lfts are elevated possible due to mets. pt's overall prognosis is grim. will talk to pt tomorrow about code status. Review of Systems - Review of Systems Eyes: negative: Pain, Vision Change, Conjunctivae Inflammation, Eyelid Inflammation, Redness, Other ENT: negative: Ear Pain, Ear Discharge, Nose Pain, Nose Discharge, Nose Congestion, Mouth Pain, Mouth Swelling, Throat Pain, Throat Swelling, Other Respiratory: negative: Cough, Dry, Shortness of Breath, Hemoptysis, SOB with Excertion, Pleuritic Pain, Sputum, Wheezing Cardiovascular: negative: chest pain, palpitations, orthopnea, paroxysmal nocturnal dyspnea, edema, light headedness, other Gastrointestinal: negative: Nausea, Vomiting, Abdominal Pain, Diarrhea, Constipation, Melena, Hematochezia, Other Genitourinary: negative: Dysuria, Frequency, Incontinence, Hematuria, Retention , Other - Medications/Allergies Allergies/Adverse Reactions: Allergies Allergy/AdvReac Type Severity Reaction Status Date / Time No Known Drug Allergies Allergy Verified 12/12/17 11:28 Medications: Current Medications Acetaminophen (Tylenol) 650 mg PO Q4H PRN PRN Reason: Headache/Fever or Pain Hydrocodone Bitart/Acetaminophen (Jackson 5/325) 1 tab PO Q4H PRN PRN Reason: Moderate Pain (4-6) Last Admin: 12/30/17 16:07 Dose: 1 tab Docusate Sodium (Colace) 100 mg PO BID [facility] Last Admin: 12/30/17 09:15 Dose: 100 mg Famotidine (Pepcid) 20 mg PO BID [facility] Last Admin: 12/30/17 09:15 Dose: 20 mg Dextrose/Sodium Chloride (D5 1/2 Ns) 1,000 mls @ 75 mls/hr IV .[id number] [facility] Last Admin: 12/30/17 03:44 Dose: 1,000 mls Piperacillin Sod/Tazobactam (Sod 3.375 gm/ Sodium Chloride) 100 mls @ 200 mls/ hr IVPB 0300,0900,1500,2100 [facility] Last Admin: 12/30/17 15:45 Dose: 100 mls Magnesium Hydroxide (Milk Of Magnesium) 30 ml PO DAILYPRN PRN PRN Reason: Constipation Morphine Sulfate (Morphine) 2 mg SLOW IVP Q4H PRN PRN Reason: Severe Pain (7-10) Last Admin: 12/30/17 15:46 Dose: 2 mg Ondansetron HCl (Zofran) 4 mg IVP Q6H PRN PRN Reason: Nausea/Vomiting Sodium Chloride (Flush - Normal Saline) 10 ml IVF Q12HR [facility] Last Admin: 12/30/17 09:16 Dose: Not Given Sodium Chloride (Flush - Normal Saline) 10 ml IVF PRN PRN PRN Reason: Saline Flush Last Admin: 12/30/17 03:45 Dose: 10 ml
[2017-12-30] MEDS: Morphine 10 MG/ML VIAL SLOW IVP PRN (20:49)
--- NOTE | 2017-12-30 21:07 | CON ---
DATE OF CONSULTATION: 12/30/2017 HISTORY OF PRESENT ILLNESS: Coby Hunter is a 32-year-old female admitted to the hospital with eric ed weakness and shoulder pain, pain all over. Unfortunate situation here for this 32-year-old female who recently diagnosed to have extensive metastatic breast cancer that is well outlined by the oncol ogist. She is seeing Dr. Pardo. The left breast mass was found during a . She had an uneventful delivery of her child on . Post-delivery she was noted to have extensive metastatic disease. Breast mass shows HER2-positive in filtrative ductal carcinoma with widespread liver and bone metastases, and malignant ascites. She un derwent paracentesis almost 2 liters several weeks ago at [facility]. She has now had increasing liver function with a bilirubin elevated in the 5 range. She is nauseated. She feels somewhat better, feeling markedly weak. SOCIAL HISTORY: Nonsmoker, nondrinker. PAST MEDICAL HISTORY: Unremarkable for any major medical problems, diabetes, hypertension. PREVIOUS SURGERIES: D&C. CURRENT MEDICATIONS: Lasix, Nesmith, Zofran. SOCIAL AND FAMILY HISTORY: Unremarkable. 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 is an engi neer. REVIEW OF SYSTEMS: Otherwise, 10-point negative. PHYSICAL EXAMINATION: GENERAL: Frail, cachectic looking female. VITAL SIGNS: Blood pressure of 120/56, SATs 100%, pulse 104, temperature 98. EXTREMITIES: 2+ edema. CHEST: Decreased breath sounds bilaterally, left greater than right. CARDIAC: Normal S1, S2, no gallops. ABDOMEN: Distended, ascites. LABORATORY DATA: White count 20,000, platelet count is 98. Creatinine normal. Sodium 128. LDH is 2313. Bilirubin is 5.1. AST 605, ALT 529, alkaline phosphatase 1096. Lactic acid was elevated at 5 9.2. X-ray shows left-sided pleural effusion. Shoulder x-ray showed unremarkable. IMPRESSION: 1. Metastatic breast cancer. 2. Left pleural effusion. 3. Ascites. 4. Peripheral edema from the abnormal liver function. At this stage, nothing additional to offer. Continue as per Oncology. PT and supportive care. I will follow while in the MICU. Additionally, if the pleural effusion gets larger, may consider doi ng a thoracentesis. This is a consultation note 70 minutes of which 50% of time was spent with direct patient care.
[2017-12-31] MEDS: Morphine 10 MG/ML VIAL SLOW IVP PRN ×3 (01:34→16:11)
[2017-12-31] MEDS: Dextrose 5 %-0.45 % NaCl 1,000 ML IV SCH ×2 (01:38→08:00)
[2017-12-31] MEDS: Piperacillin/Tazobactam 3.375 GM in Sodium Chloride 0.9% 100 ML IVPB SCH ×4 (04:19→22:13)
[2017-12-31] MEDS: Ondansetron HCl/PF 4 MG/2 ML Vial IVP PRN ×2 (05:26→16:11)
[2017-12-31 05:47] LABS: Anion Gap 9 mmol/L (10-20); BUN (Urea Nitrogen) 36 mg/dL (7.0-18.7); Calc. Creatinine Clearance 136 mL/min (70-130); Calcium 6.6 mg/dL (7.8-10.44); Carbon Dioxide 25 mmol/L (22-29); Chloride 94 mmol/L (98-107); Estimated GFR-MDRD Greater than 90; Glucose 119 mg/dL (70-105); Potassium 4.2 mmol/L (3.5-5.1); Sodium 124 mmol/L (136-145)
[2017-12-31 06:09] LABS: Anisocytosis SLIGHT = 6-15 cells (100X) (0-5/hpf); Band 15 % (5-11); Hemoglobin 7.2 g/dL (12.0-16.0); Lymphocytes 19 % (21-51); MDiff Complete? YES; Macrocytosis SLIGHT = 6-15 cells (100X) (0-5/hpf); Mean Corpuscular HGB CONC 33.4 g/dL (32.0-36.0); Mean Corpuscular Hemoglobin 30.7 pg (27.0-31.0); Mean Corpuscular Volume 92.1 fl (81.0-99.0); Mean Platelet Volume 9.9 fL (7.4-10.4); Metamyelocyte 5 % (0-0); Monocytes 7 % (0-10); Neutrophil 54 % (42-75); Nucleated RBC 1 % (0); PLT Morphology Comment Appears Decreased; Platelet Count 108 thou/uL (130-400); Polychromasia SLIGHT = 2-3 cells (100X) (0-2/hpf); RBC Distribution Width 15.8 % (11.5-14.5); Red Blood Cell (RBC) Count 2.34 mill/uL (4.20-5.40); White Blood Cell (WBC) Count 24.9 thou/uL (4.8-10.8)
[2017-12-31 08:24] LABS: ALT (SGPT) 939 U/L (8-55); Albumin 1.6 g/dL (3.5-5.0); Alkaline Phosphatase 1085 U/L (40-150); Anion Gap 13 mmol/L (10-20); BUN (Urea Nitrogen) 37 mg/dL (7.0-18.7); Bilirubin, Total 7.1 mg/dL (0.2-1.2); CK (CPK) 2310 U/L (29-168); Calc. Creatinine Clearance 132 mL/min (70-130); Calcium 6.6 mg/dL (7.8-10.44); Carbon Dioxide 23 mmol/L (22-29); Chloride 94 mmol/L (98-107); Estimated GFR-MDRD 86; Globulin 1.8 g/dL (2.4-3.5); Glucose 118 mg/dL (70-105); Potassium 4.3 mmol/L (3.5-5.1); Protein, Total 3.4 g/dL (6.0-8.3); Sodium 126 mmol/L (136-145)
[2017-12-31 08:45] LABS: AST (SGOT) Greater than 3500 U/L (5-34)
--- NOTE | 2017-12-31 09:13 | PRG ---
DATE OF SERVICE: 12/31/2017 This morning she is awake, alert, responsive, appears to be more jaundiced. PHYSICAL EXAMINATION: VITAL SIGNS: Sats are 100% on room air, temperature 98, pulse 96, blood pressure 96/48. CHEST: Chest revealed decreased breath sounds, no wheezing. CARDIAC: Normal S1-S2. No gallops. ABDOMEN: Soft, no masses. LABORATORY: White count 24,000, H&H 7 and 21, platelet count 108. Sodium 124. Electrolytes are nor mal. Creatinine kinase 2310. IMPRESSION: 1. Metastatic breast cancer, extensive. 2. Leukocytosis, but no evidence of any obvious infection. Culture negative. 3. Ascites. 4. Pleural effusion. PLAN: Comfort care. Empiric antibiotics, supportive care. She is being transferred out of the IMCU to the Oncology floor .
[2017-12-31] MEDS: Docusate 100 MG CAP PO SCH ×2 (10:07→22:05)
[2017-12-31] MEDS: Famotidine 20 MG TAB PO SCH ×2 (10:08→22:05)
--- NOTE | 2017-12-31 13:00 | PDOC.PN ---
- Subjective Encounter Start Date: 12/31/17 Encounter Start Time: 12:00 Subjective: pt up in bed appears ill, still has some pain to her abdomen -: spoke with pt's about her overall poor prognosis - Objective Vital Signs & Weight: Vital Signs (12 hours) Temp Pulse Resp BP Pulse Ox 12/31/17 11:30 98.0 F 97 18 103/55 L 95 12/31/17 09:29 98.1 F 96 18 98 12/31/17 07:25 98.1 F 96 18 96/48 L 97 12/31/17 04:00 98.1 F 102 H 16 106/48 L 99 Weight Weight 178 lb 9 oz I&O: 12/30/17 12/31/17 01/01/18 06:59 06:59 06:59 Intake Total 0 1875 480 Output Total 850 Balance 0 1025 480 Result Diagrams: 12/31/17 05:30 12/31/17 05:30 Phys Exam - Physical Examination HEENT: PERRLA, moist MMs Neck: no nodes, no JVD Respiratory: no wheezing, no rales Cardiovascular: RRR, no significant murmur mild distention, pain on palpaiton all around abd Musculoskeletal: no edema Dx/Plan - Plan * . 1) New dx breast ca 2) Acute anemia possible hemolytic vs acute blood loss 3) elevated lfts 4) thrombocytopenia plan: pt did receive chemo a month ago. She does have metastatic disease. pt received 2units of blood. her lfts are elevated possible due to mets. pt's overall prognosis is grim. will talk to pt tomorrow about code status. 12/31 worsening lft's will get hepatic doppler to rule out portal or hepatic thrombus. pt's ct abd/pel scan reviewed which indicated complete replacement of liver tissue with metastatic foci. thrombocytopenia is improving, hh is stable. palliative team consulted. Discussed with pt's about pt's overall poor prognosis. Review of Systems - Review of Systems Eyes: negative: Pain, Vision Change, Conjunctivae Inflammation, Eyelid Inflammation, Redness, Other ENT: negative: Ear Pain, Ear Discharge, Nose Pain, Nose Discharge, Nose Congestion, Mouth Pain, Mouth Swelling, Throat Pain, Throat Swelling, Other Respiratory: negative: Cough, Dry, Shortness of Breath, Hemoptysis, SOB with Excertion, Pleuritic Pain, Sputum, Wheezing Cardiovascular: negative: chest pain, palpitations, orthopnea, paroxysmal nocturnal dyspnea, edema, light headedness, other Gastrointestinal: Abdominal Pain - Medications/Allergies Allergies/Adverse Reactions: Allergies Allergy/AdvReac Type Severity Reaction Status Date / Time No Known Drug Allergies Allergy Verified 12/12/17 11:28 Medications: Current Medications Acetaminophen (Tylenol) 650 mg PO Q4H PRN PRN Reason: Headache/Fever or Pain Hydrocodone Bitart/Acetaminophen ([place] 5/325) 1 tab PO Q4H PRN PRN Reason: Moderate Pain (4-6) Last Admin: 12/30/17 16:07 Dose: 1 tab Docusate Sodium (Colace) 100 mg PO BID [facility] Last Admin: 12/31/17 10:07 Dose: Not Given Famotidine (Pepcid) 20 mg PO BID [facility] Last Admin: 12/31/17 10:08 Dose: 20 mg Dextrose/Sodium Chloride (D5 1/2 Ns) 1,000 mls @ 75 mls/hr IV .[id number] [facility] Last Admin: 12/31/17 01:38 Dose: Not Given Piperacillin Sod/Tazobactam (Sod 3.375 gm/ Sodium Chloride) 100 mls @ 200 mls/ hr IVPB 0300,0900,1500,2100 [facility] Last Admin: 12/31/17 10:06 Dose: 100 mls Magnesium Hydroxide (Milk Of Magnesium) 30 ml PO DAILYPRN PRN PRN Reason: Constipation Morphine Sulfate (Morphine) 2 mg SLOW IVP Q4H PRN PRN Reason: Severe Pain (7-10) Last Admin: 12/31/17 10:08 Dose: 2 mg Ondansetron HCl (Zofran) 4 mg IVP Q6H PRN PRN Reason: Nausea/Vomiting Last Admin: 12/31/17 05:26 Dose: 4 mg Sodium Chloride (Flush - Normal Saline) 10 ml IVF Q12HR [facility] Last Admin: 12/31/17 10:09 Dose: Not Given Sodium Chloride (Flush - Normal Saline) 10 ml IVF PRN PRN PRN Reason: Saline Flush Last Admin: 12/30/17 03:45 Dose: 10 ml
--- NOTE | 2017-12-31 13:46 | PQF ---
DATE: 12-31-17 ATTN: DR. TERRENCE TINEO Please exercise your independent, professional judgment in responding to the clarification form. Clinical indicators are provided on the bottom of this form for your review Please check appropriate box(s) to clarify if the following diagnosis has been ruled in or ruled out: SEPSIS [ ] Ruled in diagnosis [ ] Continue to treat [ ] Resolved [ ] Ruled out diagnosis [ ] Other diagnosis [ ] Unable to determine In addition, please specify: Present on Admission (POA): [x ] Yes [ ] No [ ] Unable to determine For continuity of documentation, please document condition throughout progress notes and discharge summary. Thank You. CLINICAL INDICATORS - SIGNS / SYMPTOMS / LABS H&P: ADMITTED FOR SEVERE SYMPTOMATIC ANEMIA AND SEPSIS H&P: SEPSIS. SHE WAS HYPOTHERMIC, TACHYCARDIC, HAD LEUCOCYTOSIS AND ELEVATED LACTATE, MAKING SEPSIS A LEGITIMATE CONCERN. WBC: 3--18: 22.8 3--18: 20.9 3--18: 24.9 BANDS: 3--18: 22 3--18: 25 3--18: 15 LACTIC ACID: 3--18: 15.0 3--18: 15.3 3--18: 9.2 PULSE: 18: 104, 104, 102, 101 3-18: 102 RISK FACTORS: CONSULT NOTE DR. MARINO: WIDESPREAD METASTATIC BREAST CANCER WITH BONE INVOLVEMENT, LIVER METASTASIS, AND MALIGNANT ASCITES TREATMENTS: (MAR) IVF, ZOSYN (This form is maintained as a part of the permanent medical record) 2014 [employer]. All Rights Reserved FARIDA [email or web address] Office: [phone] [facility]
--- NOTE | 2017-12-31 16:20 | ULT ---
HEPATIC SONOGRAM WITH DUPLEX EVALUATION: 12/31/17 HISTORY: Abnormal liver function tests. Metastatic disease. Abdominal pain. FINDINGS: Biliary sludge is apparent within the gallbladder lumen. Patient was not reportedly tender over the g allbladder fossa at the time of the exam. Common duct is 0.5 cm. Liver is enlarged and diffusely replaced by multiple irregular hypoechoic masses. Small amount of ella e fluid is present within the abdomen. Spleen is 12.6 cm. Good color and spectral doppler flow present within the hepatic and splenic arteries. There is no significant flow visualized within the portal vein. There is increased flow within the he patic artery. Portal venous flow is toward the IVC. IMPRESSION: 1. Thrombosis of the portal venous system. 2. Extensive metastatic disease of the enlarged liver. 3. Small amount of ascites. POS: JAIRO
[2017-12-31] MEDS: HYDROcodone/Acetaminophen 5/325 mg Tablet PO PRN (18:29)
[2017-12-31] MEDS: Morphine 2 MG/ML SYRINGE SLOW IVP PRN (20:03)
[2018-01-01] MEDS: Piperacillin/Tazobactam 3.375 GM in Sodium Chloride 0.9% 100 ML IVPB SCH ×3 (03:29→15:48)
[2018-01-01] MEDS: Dextrose 5 %-0.45 % NaCl 1,000 ML IV SCH ×2 (05:49→18:22)
[2018-01-01 06:20] LABS: Band 25 % (5-11); Hemoglobin 6.1 g/dL (12.0-16.0); Lymphocytes 16 % (21-51); MDiff Complete? YES; Mean Corpuscular HGB CONC 32.4 g/dL (32.0-36.0); Mean Corpuscular Hemoglobin 30.1 pg (27.0-31.0); Mean Corpuscular Volume 92.8 fl (81.0-99.0); Mean Platelet Volume 9.9 fL (7.4-10.4); Metamyelocyte 3 % (0-0); Monocytes 7 % (0-10); Neutrophil 49 % (42-75); Nucleated RBC 9 % (0); PLT Morphology Comment Appears Decreased; Platelet Count 104 thou/uL (130-400); RBC Distribution Width 16.9 % (11.5-14.5); Red Blood Cell (RBC) Count 2.01 mill/uL (4.20-5.40); White Blood Cell (WBC) Count 23.5 thou/uL (4.8-10.8)
[2018-01-01 06:21] LABS: Anion Gap 9 mmol/L (10-20); BUN (Urea Nitrogen) 29 mg/dL (7.0-18.7); Calc. Creatinine Clearance 151 mL/min (70-130); Calcium 6.6 mg/dL (7.8-10.44); Carbon Dioxide 25 mmol/L (22-29); Chloride 94 mmol/L (98-107); Estimated GFR-MDRD Greater than 90; Glucose 104 mg/dL (70-105); Sodium 124 mmol/L (136-145)
[2018-01-01] MEDS: Famotidine 20 MG TAB PO SCH (09:21)
[2018-01-01] MEDS: Docusate 100 MG CAP PO SCH (09:21)
[2018-01-01] MEDS: HYDROcodone/Acetaminophen 5/325 mg Tablet PO PRN (09:24)
--- NOTE | 2018-01-01 11:29 | PRG ---
DATE OF SERVICE: 01/01/2018 She continues to have pain and discomfort in the shoulder, back, but denies difficulty breathing. PHYSICAL EXAMINATION: VITAL SIGNS: Sats are 90% on room air, respiration 16, temperature 98, blood pressure 90/55. SKIN: She is obviously jaundiced. CHEST: Chest reveals decreased breath sounds, no wheezing. CARDIAC: Normal S1, S2. ABDOMEN: Abdomen soft. LABORATORY: Bands 25, 49 segs. White count 23,000. Sodium 124. She had ultrasound of the abdomen ordered yesterday, shows thrombus of the portal venous system, exte nsive metastatic disease of the liver, ascites. IMPRESSION: 1. Extensive metastatic carcinoma. 2. Ascites. 3. Pleural effusion. 4. Thrombus of the portal system. PLAN: Comfort care. Input from Oncology. Prognosis is grave. Pulmonary will see as needed.
[2018-01-01 14:38] LABS: ALT (SGPT) 971 U/L (8-55); Albumin 1.6 g/dL (3.5-5.0); Alkaline Phosphatase 1152 U/L (40-150); Bilirubin, Direct 5.2 mg/dL (0.1-0.3); Bilirubin, Total 6.7 mg/dL (0.2-1.2); Protein, Total 3.2 g/dL (6.0-8.3)
[2018-01-01 14:45] LABS: AST (SGOT) Greater than 3500 U/L (5-34)
[2018-01-01] MEDS ORDERED: Bisacodyl 10 MG SUPP PR PRN (17:16)
[2018-01-01] MEDS: Ondansetron HCl/PF 4 MG/2 ML Vial IVP PRN (19:20)
--- NOTE | 2018-01-01 21:47 | PDOC.PN ---
- Subjective Encounter Start Date: 01/01/18 Encounter Start Time: 13:00 Subjective: pt up in bed appears ill - Objective Vital Signs & Weight: Vital Signs (12 hours) Temp Pulse Pulse Resp BP BP Pulse Ox 01/01/18 18:43 97.5 F L 80 18 108/55 L 01/01/18 11:39 97.3 F L 73 16 111/53 L 100 Weight Weight 178 lb 9 oz I&O: 12/31/17 01/01/18 01/02/18 06:59 06:59 06:59 Intake Total 1875 3234.4 600 Output Total 850 625 Balance 1025 2609.4 600 Result Diagrams: 01/01/18 05:36 01/01/18 05:36 Additional Labs: Accuchecks 01/01/18 05:33 POC Glucose 182 H Phys Exam - Physical Examination HEENT: PERRLA pt sclera is icteric, conjuntiva pallor Respiratory: wheezing present Cardiovascular: RRR, no significant murmur mild distention and pain on palpation Musculoskeletal: edema present Dx/Plan - Plan * . * . 1) New dx breast ca 2) Acute anemia possible hemolytic vs acute blood loss 3) elevated lfts 4) thrombocytopenia plan: pt did receive chemo a month ago. She does have metastatic disease. pt received 2units of blood. her lfts are elevated possible due to mets. pt's overall prognosis is grim. will talk to pt tomorrow about code status. 12/31 worsening lft's will get hepatic doppler to rule out portal or hepatic thrombus. pt's ct abd/pel scan reviewed which indicated complete replacement of liver tissue with metastatic foci. thrombocytopenia is improving, hh is stable. palliative team consulted. Discussed with pt's about pt's overall poor prognosis. 01/01 spoke in length with pt and her family today about her overall prognosis. pt understands and will wait for input from oncology and then decide what is best for her. hepatic ultrasound indicates portal thrombosis no intervention due to her anemia. Pt will be given blood transfusion to keep hh >7 Review of Systems - Review of Systems Eyes: negative: Pain, Vision Change, Conjunctivae Inflammation, Eyelid Inflammation, Redness, Other ENT: negative: Ear Pain, Ear Discharge, Nose Pain, Nose Discharge, Nose Congestion, Mouth Pain, Mouth Swelling, Throat Pain, Throat Swelling, Other Respiratory: Shortness of Breath Cardiovascular: negative: chest pain, palpitations, orthopnea, paroxysmal nocturnal dyspnea, edema, light headedness, other Gastrointestinal: Abdominal Pain - Medications/Allergies Allergies/Adverse Reactions: Allergies Allergy/AdvReac Type Severity Reaction Status Date / Time No Known Drug Allergies Allergy Verified 12/12/17 11:28 Medications: Current Medications Acetaminophen (Tylenol) 650 mg PO Q4H PRN PRN Reason: Headache/Fever or Pain Hydrocodone Bitart/Acetaminophen ([place] 5/325) 1 tab PO Q4H PRN PRN Reason: Moderate Pain (4-6) Last Admin: 01/01/18 09:24 Dose: 1 tab Bisacodyl (Dulcolax) 10 mg NM DAILYPRN PRN PRN Reason: Constipation Docusate Sodium (Colace) 100 mg PO BID [facility] Last Admin: 01/01/18 09:21 Dose: 100 mg Famotidine (Pepcid) 20 mg PO BID [facility] Last Admin: 01/01/18 09:21 Dose: 20 mg Fentanyl (Duragesic) 25 mcg TD Q3D [facility] Last Admin: 12/31/17 21:58 Dose: 25 mcg Dextrose/Sodium Chloride (D5 1/2 Ns) 1,000 mls @ 75 mls/hr IV .[id number] [facility] Last Admin: 01/01/18 18:22 Dose: 1,000 mls Piperacillin Sod/Tazobactam (Sod 3.375 gm/ Sodium Chloride) 100 mls @ 200 mls/ hr IVPB 0300,0900,1500,2100 [facility] Last Admin: 01/01/18 15:48 Dose: 100 mls Magnesium Hydroxide (Milk Of Magnesium) 30 ml PO DAILYPRN PRN PRN Reason: Constipation Last Admin: 01/01/18 09:25 Dose: 30 ml Morphine Sulfate (Morphine) 2 mg SLOW IVP Q2H PRN PRN Reason: Severe Pain (7-10) Last Admin: 12/31/17 20:03 Dose: 2 mg Ondansetron HCl (Zofran) 4 mg IVP Q6H PRN PRN Reason: Nausea/Vomiting Last Admin: 01/01/18 19:20 Dose: 4 mg Sodium Chloride (Flush - Normal Saline) 10 ml IVF Q12HR [facility] Last Admin: 01/01/18 09:21 Dose: 10 ml Sodium Chloride (Flush - Normal Saline) 10 ml IVF PRN PRN PRN Reason: Saline Flush Last Admin: 12/30/17 03:45 Dose: 10 ml
[2018-01-02] MEDS: Docusate 100 MG CAP PO SCH ×2 (01:54→09:57)
[2018-01-02] MEDS: Famotidine 20 MG TAB PO SCH ×2 (01:54→09:54)
[2018-01-02] MEDS: Piperacillin/Tazobactam 3.375 GM in Sodium Chloride 0.9% 100 ML IVPB SCH ×3 (01:55→09:55)
[2018-01-02 07:15] LABS: Anion Gap 9 mmol/L (10-20); BUN (Urea Nitrogen) 21 mg/dL (7.0-18.7); Calc. Creatinine Clearance 184 mL/min (70-130); Calcium 6.8 mg/dL (7.8-10.44); Carbon Dioxide 26 mmol/L (22-29); Chloride 95 mmol/L (98-107); Estimated GFR-MDRD Greater than 90; Glucose 105 mg/dL (70-105); Potassium 4.1 mmol/L (3.5-5.1); Sodium 126 mmol/L (136-145)
[2018-01-02 07:38] LABS: Hemoglobin 9.4 g/dL (12.0-16.0); Mean Corpuscular HGB CONC 33.3 g/dL (32.0-36.0); Mean Corpuscular Hemoglobin 30.9 pg (27.0-31.0); Platelet Count 83 thou/uL (130-400); RBC Distribution Width 15.6 % (11.5-14.5)
[2018-01-02 09:00] LABS: Band 20 % (5-11); Lymphocytes 14 % (21-51); MDiff Complete? YES; Mean Platelet Volume 10.1 fL (7.4-10.4); Metamyelocyte 7 % (0-0); Monocytes 10 % (0-10); Myelocyte 6 % (0-0); Neutrophil 42 % (42-75); Nucleated RBC 9 % (0); PLT Morphology Comment Appears Decreased; Polychromasia MODERATE = 3-4 cells (100X) (0-2/hpf); Reactive Lymphocytes 1 % (0-10); Red Blood Cell (RBC) Count 3.04 mill/uL (4.20-5.40); White Blood Cell (WBC) Count 24.8 thou/uL (4.8-10.8)
--- NOTE | 2018-01-02 09:44 | PQF ---
DATE: 12-31-17 ATTN: DR. TERRENCE TINEO Please exercise your independent, professional judgment in responding to the clarification form. Clinical indicators are provided on the bottom of this form for your review Please check appropriate box(s) to clarify if the following diagnosis has been ruled in or ruled out: SEPSIS [ ] Ruled in diagnosis [ ] Continue to treat [ x ] Resolved [ ] Ruled out diagnosis [ ] Other diagnosis [ ] Unable to determine In addition, please specify: Present on Admission (POA): [x ] Yes [ ] No [ ] Unable to determine For continuity of documentation, please document condition throughout progress notes and discharge summary. Thank You. CLINICAL INDICATORS - SIGNS / SYMPTOMS / LABS H&P: ADMITTED FOR SEVERE SYMPTOMATIC ANEMIA AND SEPSIS H&P: SEPSIS. SHE WAS HYPOTHERMIC, TACHYCARDIC, HAD LEUCOCYTOSIS AND ELEVATED LACTATE, MAKING SEPSIS A LEGITIMATE CONCERN. WBC: 3--18: 22.8 3--18: 20.9 3--18: 24.9 BANDS: 3--18: 22 3--18: 25 3--18: 15 LACTIC ACID: 3--18: 15.0 3--18: 15.3 3--18: 9.2 PULSE: 18: 104, 104, 102, 101 3--18: 102 RISK FACTORS: CONSULT NOTE DR. MARINO: WIDESPREAD METASTATIC BREAST CANCER WITH BONE INVOLVEMENT, LIVER METASTASIS, AND MALIGNANT ASCITES TREATMENTS: (MAR) IVF, ZOSYN (This form is maintained as a part of the permanent medical record) 2014 [employer] All Rights Reserved FARIDA [email or web address] Office: [phone] [facility]
[2018-01-02] MEDS: Morphine 2 MG/ML SYRINGE SLOW IVP PRN (10:18)
[2018-01-02 12:47] VITALS: BP 115/58; TEMP 97.5
--- NOTE | 2018-01-02 15:13 | PDOC.PN ---
- Subjective Encounter Start Date: 01/02/18 Encounter Start Time: 09:45 Subjective: pt up in bed has minimal pain - Objective Vital Signs & Weight: Vital Signs (12 hours) Temp Pulse Resp BP Pulse Ox 01/02/18 08:00 97.5 F L 95 18 115/58 L 98 01/02/18 04:00 98.0 F 74 16 122/60 100 Weight Weight 178 lb 9 oz I&O: 01/01/18 01/02/18 01/03/18 06:59 06:59 06:59 Intake Total 3234.4 2700 525 Output Total 625 650 Balance 2609.4 2050 525 Result Diagrams: 01/02/18 06:45 01/02/18 06:45 Phys Exam - Physical Examination HEENT: PERRLA Neck: no nodes Respiratory: no wheezing, no rales Cardiovascular: RRR, no significant murmur mild disention, bsx2, pain on palpaiton Musculoskeletal: no edema Neurological: non-focal, normal sensation Dx/Plan - Plan ) New dx breast ca 2) Acute anemia possible hemolytic vs acute blood loss 3) elevated lfts 4) thrombocytopenia plan: pt did receive chemo a month ago. She does have metastatic disease. pt received 2units of blood. her lfts are elevated possible due to mets. pt's overall prognosis is grim. will talk to pt tomorrow about code status. 12/31 worsening lft's will get hepatic doppler to rule out portal or hepatic thrombus. pt's ct abd/pel scan reviewed which indicated complete replacement of liver tissue with metastatic foci. thrombocytopenia is improving, hh is stable. palliative team consulted. Discussed with pt's about pt's overall poor prognosis. 01/01 spoke in length with pt and her family today about her overall prognosis. pt understands and will wait for input from oncology and then decide what is best for her. hepatic ultrasound indicates portal thrombosis no intervention due to her anemia. Pt will be given blood transfusion to keep hh >7 pt is going home with hospice * .
--- NOTE | 2018-01-02 19:21 | DIS ---
DATE OF ADMISSION: 12/30/2017 DATE OF DISCHARGE: 01/02/2018 DISCHARGE DIAGNOSES: 1. Breast cancer with metastatic to bone and liver. 2. Shock liver, most likely secondary to the underlying disease process. 3. Leukocytosis. 4. Sepsis on admission; however, resolved upon discharge. 5. Possible disseminated intravascular coagulation. 6. Anemia. 7. Thrombocytopenia. HOSPITAL COURSE: The patient is a very unfortunate 32-year-old patient who initially was admitted to the hospital with weakness. The patient was found to have anemia and was given status post 3 units of blood transfusion. She was also found to have a worsening elevation of her LFTs. The patient had recently had chemotherapy about 2 weeks ago on the 12/18/2017. Patient initially was started with b road spectrum antibiotics for possible sepsis on admission; however, there was no indication of infec tion. This was most likely secondary to her underlying reaction from the chemotherapy and her cancer . The patient was seen by Oncology and also Pulmonology. Patient's code status was discussed with t he patient and patient's family about the patient's overall poor prognosis and poor outcome. The pat ient decided to go home with hospice. Hospice at that time was initiated and the patient has been di scharged home with hospice. DISCHARGE MEDICATIONS: As following: Hydrocodone 1 p.o. q.6. p.r.n., Fentanyl patch 25 mcg t.i.d. e very 3 days, hydrocodone/Maryneal 1 q.4 h. p.r.n., Pepcid 20 mg b.i.d., Colace 100 mg p.o. b.i.d. Consultants were Pulmonology and Oncology.
== END 2018-01-02 10:45 | disposition hospice, home (50) | DRG 871 ==
LOC: ERS 23:20 → IMCU/EMU 12-30 03:13 → ONC 12-31 16:48
PROVIDERS: ADMIT Internal Medicine; ATTEND Internal Medicine
PROC: 30233N1 Transfusion of Nonautologous Red Blood Cells into Peripheral Vein, Percutaneous Approach (ICD-10-PCS; principal; 2017-12-30)
PROC: 30233N1 Transfusion of Nonautologous Red Blood Cells into Peripheral Vein, Percutaneous Approach (ICD-10-PCS; 2018-01-01)
DX: A41.9 Sepsis, unspecified organism (principal); K72.00 Acute and subacute hepatic failure without coma; D65 Disseminated intravascular coagulation [defibrination syndrome]; I81 Portal vein thrombosis; R18.0 Malignant ascites; R64 Cachexia; J90 Pleural effusion, not elsewhere classified; E87.2 Acidosis; C78.7 Secondary malignant neoplasm of liver and intrahepatic bile duct; C79.51 Secondary malignant neoplasm of bone; E87.1 Hypo-osmolality and hyponatremia; T45.1X5A Adverse effect of antineoplastic and immunosuppressive drugs, initial encounter; D69.6 Thrombocytopenia, unspecified; Z51.5 Encounter for palliative care; C50.412 Malignant neoplasm of upper-outer quadrant of left female breast; D64.9 Anemia, unspecified; O90.89 Other complications of the puerperium, not elsewhere classified; Z17.1 Estrogen receptor negative status [ER-]; E86.9 Volume depletion, unspecified
CPT/HCPCS: 36415; 36416; 36430; 71045; 76705; 80048; 80053; 80076; 82550; 83010; 83605; 83615; 83690; 83880; 85025; 85046; 85049; 85060; 85300; 85362; 85379; 85384; 85610; 85730; 86850; 86900; 86901; 87040; 96361; 96374; 96375; A4216; J1642; J2270; J2405; J2543; J3010; J3430; J7050; P9016

== ENCOUNTER 2018-01-13 15:20 | Observation (INO) | payer BC ==
[2018-01-13] MEDS ORDERED: HYDROcodone/Acetaminophen 5/325 mg Tablet PO PRN (15:46)
[2018-01-13] MEDS ORDERED: Ondansetron HCl/PF 4 MG/2 ML Vial IVP PRN (15:46)
[2018-01-13] MEDS ORDERED: Acetaminophen 325 MG TAB PO PRN (15:46)
[2018-01-13] MEDS ORDERED: Ondansetron ODT 4 MG TAB PO PRN (15:46)
[2018-01-13] MEDS ORDERED: Senokot 8.6 MG TAB PO PRN (15:46)
[2018-01-13] MEDS ORDERED: Calcium Carbonate 500 MG ChewTAB PO PRN (15:46)
[2018-01-13 16:34] VITALS: BMI 33.7
[2018-01-13 16:57] LABS: Anion Gap 9 mmol/L (10-20); BUN (Urea Nitrogen) 13 mg/dL (7.0-18.7); Calc. Creatinine Clearance 223 mL/min (70-130); Calcium 6.5 mg/dL (7.8-10.44); Carbon Dioxide 24 mmol/L (22-29); Chloride 95 mmol/L (98-107); Estimated GFR-MDRD Greater than 90; Glucose 101 mg/dL (70-105); Potassium 3.3 mmol/L (3.5-5.1); Sodium 125 mmol/L (136-145)
[2018-01-13] MEDS ORDERED: Lorazepam 0.5 MG TAB PO PRN (17:02)
[2018-01-13] MEDS ORDERED: Albumin 25% 25 GM/100 ML BOT IVPB SCH (17:15)
[2018-01-13] MEDS ORDERED: Potassium Chloride 20 MEQ TAB PO SCH (17:15)
[2018-01-13 17:38] LABS: Magnesium 1.5 mg/dL (1.6-2.6); Phosphorus 2.1 mg/dL (2.3-4.7)
[2018-01-13] MEDS ORDERED: Trastuzumab 450 MG in Sodium Chloride 0.9% 250 ML 250 ML IVPB SCH (17:45)
[2018-01-13] MEDS ORDERED: Pertuzumab 420 MG in Sodium Chloride 0.9% 250 ML 250 ML IVPB SCH (17:45)
[2018-01-13] MEDS ORDERED: Magnesium 2 GM/NS 0.9% 100 ML 2 GM in Premix Bag 1 BAG IVPB SCH (18:00)
--- NOTE | 2018-01-13 20:35 | CON ---
DATE OF CONSULTATION: 01/13/2018 REASON FOR CONSULTATION: Anemia and breast cancer. HISTORY OF PRESENT ILLNESS: Ms. Hunter is a 32-year-old female, who was diagnosed with metastatic manuel ast cancer after delivery of her child in 11/2017. She was ER/NJ negative, HER-2 positive infiltrati ng ductal carcinoma. She had widespread liver and bone mets with malignant ascites. She received co mbination chemotherapy with Perjeta, Herceptin, and Taxotere. She presented to the emergency room sh ortly thereafter with a hemoglobin of 3.3. Her liver function studies were significantly worse with a bilirubin of 7. During that admission the decision was made to be placed on hospice, so she has be en on hospice for the last week or so. She had labs checked by her Hospice Service and her hemoglobi n was found to be low at 5.5. She had increasing abdominal girth and some discomfort. The decision was made to revoke hospice for blood transfusion and paracentesis. She is being admitted today for t hose procedures. PAST MEDICAL HISTORY: 1. Stage IV metastatic infiltrating ductal carcinoma. 2. Anemia. 3. Hemorrhoids. PAST SURGICAL HISTORY: D and C. ALLERGIES: No known drug allergies. HOME MEDICATIONS: Duragesic patch for pain, Xenia p.r.n. FAMILY HISTORY: No history of breast cancer. SOCIAL HISTORY: , has 3 children, lives with her spouse. REVIEW OF SYSTEMS: Constitutional: Denies fever, chills or night sweats. Eyes: No blurred or doub le vision. ENT: No pain, hoarseness, sore throat or dysphagia. Cardiovascular: No chest pain. Re spiratory: No shortness of breath. Gastrointestinal: Positive for abdominal distention and discomf ort. Skin: Positive for jaundice. No rash or itching. Neurologic: Positive for difficulty ambula ting. Psychiatric: Denies anxiety or depression. PHYSICAL EXAMINATION: VITAL SIGNS: Temperature is 99.4, pulse is 114, respiratory rate 18, and blood pressure is 114/59. She is 99% on room air. GENERAL: This is an ill-appearing female, in no acute distress. HEENT: Normocephalic, atraumatic. Pupils are equal and reactive to light. Sclerae are icteric. NECK: Supple. HEART: Regular rate and rhythm. She is tachycardic. LUNGS: Clear. ABDOMEN: Distended with positive ascites. EXTREMITIES: She has 1+ bilateral lower extremity edema. SKIN: Jaundiced. No rash. NEUROLOGIC: Nonfocal. PSYCHIATRIC: The patient is alert and oriented and appropriate. PERTINENT LABORATORY AND X-RAYS: Show sodium of 125, potassium is 3.3, chloride is 95, CO2 is 24, BU N is 13, creatinine is 0.5, calcium is 6.5, phosphorus is 2.1, and magnesium is 1.5. ASSESSMENT: 1. Metastatic ER/NJ negative, HER-2 positive breast cancer. 2. Liver failure with ascites secondary to cancer. 3. Severe symptomatic anemia secondary to breast cancer. DISCUSSION: The patient has revoked hospice and is getting 2 units of blood and paracentesis. She i s requesting treatment with Herceptin and Perjeta, which will not affect her LFTs. Plan is to give t hat to her tomorrow, at which point she will home on hospice in order to be with her family. Should she improve over the next 3 weeks, she will revoke hospice again and resume treatment. Otherwise, korey pham will just remain on hospice. Thank you for the consult.
--- NOTE | 2018-01-13 20:39 | HP ---
DATE OF ADMISSION: 01/13/2018 PRIMARY CARE PHYSICIAN: Dr. Susan Ontiveros. PRIMARY ONCOLOGIST: Dr. Pardo. CHIEF COMPLAINT: Direct admit from Dr. Pardo's office for blood transfusion and paracentesis. HISTORY OF PRESENT ILLNESS: Patient is a 32-year-old female with stage IV breast cancer with metastasis, presented as a direct admit from Dr. Pardo's office for blood transfusion as well as paracentesis. Patient was recently found to have hemoglobin of 5 per patient report. She has been short of breath on mild to moderate exertion as well as lying down. No fever or chills reported. She denies any chest pain, shortness of breath, palpitations or syncope. PAST MEDICAL HISTORY: 1. Stage IV breast cancer. 2. Recent hospitalization for sepsis. PAST SURGICAL HISTORY: 1. D&C. 2. Recent childbirth. 3. Paracentesis. ALLERGIES: No known drug allergies. CURRENT MEDICATIONS: Amoxicillin 500 mg 3 times a day, Colace 100 mg daily, Pepcid 20 mg b.i.d., fentanyl patch 25 mcg every 3 days, lactulose 15 grams daily, Ativan as needed, Zofran as needed, torsemide 10 mg daily. REVIEW OF SYSTEMS: The following complete review of systems was negative, unless otherwise mentioned in the HPI or below: Constitutional: Weight loss or gain, ability to conduct usual activities. Skin: Rash, itching. Eyes: Double vision, pain. ENT/Mouth: Nose bleeding, neck stiffness, pain, tenderness. Cardiovascular: Palpitations, dyspnea on exertion, orthopnea. Respiratory: Shortness of breath, wheezing, cough, hemoptysis, fever or night sweats. Gastrointestinal: Poor appetite, abdominal pain, heartburn, nausea, vomiting, constipation, or diarrhea. Genitourinary: Urgency, frequency, dysuria, nocturia. Musculoskeletal: Pain, swelling. Neurologic/Psychiatric: Anxiety, depression. Allergy/Immunologic: Skin rash, bleeding tendency. FAMILY HISTORY: Negative for premature coronary artery disease. SOCIAL HISTORY: Patient currently lives at home, has a 6-week-old daughter. No smoking, alcohol or drug use. PHYSICAL EXAMINATION: VITAL SIGNS: Temperature 98.6, respirations 20, pulse rate of 114, blood pressure 110/55, O2 saturation of 99% on room air. GENERAL: A 32-year-old female in mild respiratory distress, able to complete short sentences. HEENT: Head is atraumatic, normocephalic, sclerae are anicteric. Moist mucous membrane, no oral lesion. NECK: Supple, no JVD, no carotid bruit. LUNGS: Showed decreased air entry at bilateral bases. No rales or rhonchi. No wheezing. HEART: S1, S2 present. Tachycardic, no rubs or gallops. No murmurs. ABDOMEN: Soft, distended, shifting dullness present. Bowel sounds present, no rebound or guarding. EXTREMITIES: Bilateral lower extremity edema. SKIN: Warm and dry. LYMPH NODES: No palpable lymph nodes in the neck. PERIPHERAL VASCULAR: Radial pulses palpable bilaterally. MUSCULOSKELETAL: No joint swelling or tenderness. LABORATORY FINDINGS: 1. Recent hemoglobin at Dr. Pardo's office was around 5 per patient report. 2. Sodium 125, potassium 3.3, chloride 95, bicarbonate 24, BUN 13, creatinine 0.5. 3. Phosphorus 2.1, magnesium 1.5. 4. Abdominal ultrasound 2 weeks ago showed portal vein thrombosis with extensive metastatic disease. IMPRESSION: 1. Symptomatic Ascites. The patient will undergo paracentesis tomorrow. 2. Symptomatic anemia. The patient will receive 2 units of PRBC per Dr. Pardo's recommendation. We will check CBC in a.m. 3. Electrolyte abnormality. The patient has hyponatremia, hypophosphatemia, hypomagnesemia and hypokalemia. 4. Moderate protein-calorie malnutrition. 5. Abnormal LFTs due to cancer. Plan of care was discussed with the patient and the family at the bedside. They stated understanding. MTDD
[2018-01-13] MEDS: AMOXicillin 250 MG CAP PO SCH (20:59)
[2018-01-13] MEDS: Docusate 100 MG CAP PO SCH (20:59)
[2018-01-13] MEDS: Famotidine 20 MG TAB PO SCH (21:00)
[2018-01-13] MEDS: K-Phos Neutral 250 MG TAB PO SCH (21:07)
[2018-01-14] MEDS ORDERED: Trastuzumab 450 MG in Sodium Chloride 0.9% 250 ML 250 ML IVPB SCH (06:00)
[2018-01-14 06:41] LABS: #Basophils 0.1 thou/uL (0.0-0.2); #Eosinphils 0.6 thou/uL (0.0-0.7); #Lymphocytes 2.1 thou/uL (1.20-3.40); #Monocytes 0.8 thou/uL (0.11-0.59); %Basophils 0.5 % (0.0-1.0); %Eosinophils 5.4 % (0.0-10.0); %Lymphocytes 19.8 % (21.0-51.0); %Monocytes 7.1 % (0.0-10.0); %Neutrophils 67.1 % (42.0-75.0); Hemoglobin 8.7 g/dL (12.0-16.0); Mean Corpuscular HGB CONC 32.8 g/dL (32.0-36.0); Mean Corpuscular Hemoglobin 30.4 pg (27.0-31.0); Mean Corpuscular Volume 92.6 fl (81.0-99.0); Mean Platelet Volume 10.1 fL (7.4-10.4); Platelet Count 75 thou/uL (130-400); RBC Distribution Width 19.2 % (11.5-14.5); Red Blood Cell (RBC) Count 2.87 mill/uL (4.20-5.40); White Blood Cell (WBC) Count 10.4 thou/uL (4.8-10.8)
--- NOTE | 2018-01-14 07:54 | ULT ---
LIMITED ABDOMINAL ULTRASOUND: DATE: 01/14/18. COMPARISON: None. HISTORY: Evaluate ascites volume for possible therapeutic paracentesis. TECHNIQUE: Multiplanar, coffey scale sonographic imaging of the abdomen obtained for an ascites search. FINDINGS: The liver is markedly heterogeneous and irregular with numerous hypoechoic lesions, consistent with e xtensive hepatic metastatic disease. There is small volume free fluid in the right upper quadrant, r ight lower quadrant, left upper quadrant, and left lower quadrant. IMPRESSION: Small volume free fluid within the abdomen/pelvis. Evidence of hepatic metastatic disease. POS: [facility]
[2018-01-14] MEDS ORDERED: Potassium Chloride 20 MEQ TAB PO SCH (08:00)
[2018-01-14] MEDS ORDERED: Furosemide 40 MG/4 ML VIAL SLOW IVP SCH (08:45)
[2018-01-14] MEDS ORDERED: Pertuzumab 420 MG in Sodium Chloride 0.9% 250 ML 250 ML IVPB SCH (09:00)
[2018-01-14] MEDS ORDERED: Torsemide 10 MG TAB PO SCH (09:00)
[2018-01-14] MEDS: K-Phos Neutral 250 MG TAB PO SCH ×3 (09:40→17:31)
[2018-01-14] MEDS: diphenhydrAMINE 25 MG CAP PO PRN ×2 (09:40→14:33)
[2018-01-14] MEDS: Docusate 100 MG CAP PO SCH (09:41)
[2018-01-14] MEDS: Famotidine 20 MG TAB PO SCH (09:41)
[2018-01-14] MEDS: AMOXicillin 250 MG CAP PO SCH ×2 (09:42→12:35)
[2018-01-14 09:45] LABS: INR-International Normal Ratio 1.4; PTT 33.8 SEC (22.9-36.1); Prothrombin Time 17.1 SEC (12.0-14.7)
[2018-01-14 10:01] LABS: ALT (SGPT) 110 U/L (8-55); AST (SGOT) 261 U/L (5-34); Albumin 1.6 g/dL (3.5-5.0); Alkaline Phosphatase 961 U/L (40-150); Anion Gap 8 mmol/L (10-20); BUN (Urea Nitrogen) 10 mg/dL (7.0-18.7); Bilirubin, Total 6.5 mg/dL (0.2-1.2); Calc. Creatinine Clearance 223 mL/min (70-130); Calcium 6.8 mg/dL (7.8-10.44); Carbon Dioxide 25 mmol/L (22-29); Chloride 95 mmol/L (98-107); Estimated GFR-MDRD Greater than 90; Globulin 2.5 g/dL (2.4-3.5); Glucose 114 mg/dL (70-105); Magnesium 1.9 mg/dL (1.6-2.6); Potassium 3.1 mmol/L (3.5-5.1); Protein, Total 4.1 g/dL (6.0-8.3); Sodium 125 mmol/L (136-145)
[2018-01-14] MEDS ORDERED: Albumin 25% 25 GM/100 ML BOT IVPB SCH (10:37)
[2018-01-14] MEDS: Potassium Chloride 20 MEQ TAB PO SCH ×2 (12:35→17:31)
[2018-01-14] MEDS ORDERED: Dexamethasone 4 mg/ml Vial SLOW IVP SCH (12:45)
--- NOTE | 2018-01-14 14:48 | ULT ---
ULTRASOUND-GUIDED PARACENTESIS: 01/14/2018 HISTORY: Symptomatic ascites. COMPARISON: None. FINDINGS: Informed consent obtained prior to the procedure. Pre-procedural imaging demonstrates an accessible pocket of ascites within the right lower quadrant. The skin overlying this region was prepped and dr aped in the normal sterile fashion and anesthetized with 1% buffered Lidocaine. With direct sonographic guidance, a 5 English Yueh needle was advanced into the ascites in the right l ower quadrant and removal of the stylet yielded yellow fluid, and 2 L were removed. The patient jse rated the procedure well. IMPRESSION: Successful ultrasound-guided paracentesis, yielding 2 L of yellow fluid. POS: [facility]
[2018-01-14] MEDS ORDERED: Ondansetron HCl/PF 4 MG/2 ML Vial IVP SCH (16:15)
[2018-01-14 16:48] VITALS: BP 98/56; TEMP 99.5
--- NOTE | 2018-01-14 19:07 | DIS ---
DATE OF DISCHARGE: 01/14/2018 DISCHARGE DISPOSITION: Home. FOLLOWUP: Follow up with primary care physician, Dr. Susan Ontiveros, in 1 week. Follow up with Oncolog y, Dr. Pardo, as scheduled. ALLERGIES: No known drug allergies. The patient was seen and examined on the day of discharge. Denies any new complaints. No chest pain , shortness of breath, or palpitations. BRIEF HOSPITAL COURSE: The patient is a 32-year-old white female with stage IV breast cancer with me tastasis, currently under hospice, presented to the hospital as a direct admit for blood transfusion as well as paracentesis. She received 2 units of PRBC. Post-transfusion, her H&H was 8.7. Due to s ymptomatic ascites, she underwent paracentesis draining approximately 2 liters of ascitic fluid. She also received one dose of Decadron along with pertuzumab (Perjeta and Herceptin). She has been jesus red by Oncology for discharge. FINAL DIAGNOSES: 1. Symptomatic ascites, status post paracentesis. 2. Symptomatic anemia, status post 2 units of PRBC. 3. Electrolyte abnormalities. The patient was found to have hyponatremia with sodium 125, hypokalem ia with potassium 3.1. 4. Hypomagnesemia with magnesium 1.5 and hypophosphatemia with phosphorus of 2.1. Electrolytes were replaced. 5. Moderate protein calorie malnutrition. 6. Abnormal liver function tests due to malignancy. 7. Repeat LFTs as outpatient is recommended. Primary care physician advised to follow. DISCHARGE MEDICATIONS: Potassium chloride 20 mEq daily for one week. Base met after 1 week is recommended. Primary care physician is advised to follow.
== END 2018-01-14 18:31 | disposition home or self-care (01) ==
LOC: INTOOBSV 15:20 → ONC 15:20
PROVIDERS: ADMIT Internal Medicine; ATTEND Internal Medicine
PROC: 0W9G3ZZ Drainage of Peritoneal Cavity, Percutaneous Approach (ICD-10-PCS; principal; 2018-01-14)
PROC: BW40ZZZ Ultrasonography of Abdomen (ICD-10-PCS; 2018-01-14)
DX: C50.412 Malignant neoplasm of upper-outer quadrant of left female breast (principal); C78.7 Secondary malignant neoplasm of liver and intrahepatic bile duct; D63.0 Anemia in neoplastic disease; R18.0 Malignant ascites; E87.1 Hypo-osmolality and hyponatremia; E87.6 Hypokalemia; E83.42 Hypomagnesemia; K72.90 Hepatic failure, unspecified without coma; E44.0 Moderate protein-calorie malnutrition; Z68.33 Body mass index [BMI] 33.0-33.9, adult; Z17.1 Estrogen receptor negative status [ER-]; Z79.899 Other long term (current) drug therapy
CPT/HCPCS: 36415; 36430; 49083; 76705; 80048; 80053; 83735; 84100; 85025; 85610; 85730; 86850; 86900; 86901; 96367; 96375; 96376; 96413; G0378; J1100; J1642; J1940; J2405; J3475; J7050; J9306; J9355; P9016; P9047

== ENCOUNTER 2018-02-05 12:01 | Inpatient (IN) | payer BC ==
[~2018-02-05 12:01] MED LIST changes: -Bupivacaine 0.25% HCL 30 ML VIAL ONE; +ISOVUE-370 76%-LOCM 1 ML ONE
[2018-02-05] MEDS ORDERED: Norepinephrine 8 MG/0.9% NS 250 ML ONE (12:04)
[2018-02-05] MEDS ORDERED: Midazolam HCl 5 mg/ml Vial ONE ×2 (12:11→14:45)
[2018-02-05] MEDS ORDERED: Fentanyl 100 MCG/2 ML VIAL ONE ×3 (12:11→12:33)
[2018-02-05] MEDS ORDERED: fentaNYL Citrate/PF 2,000 MCG in Sodium Chloride 0.9% 60 ML IV SCH (12:15)
[2018-02-05 12:25] LABS: Hemoglobin 10.1 g/dL (12.0-16.0); Mean Corpuscular HGB CONC 30.6 g/dL (32.0-36.0); Mean Corpuscular Hemoglobin 31.5 pg (27.0-31.0); Mean Platelet Volume 8.9 fL (7.4-10.4); Platelet Count 159 thou/uL (130-400); Red Blood Cell (RBC) Count 3.22 mill/uL (4.20-5.40); White Blood Cell (WBC) Count 16.9 thou/uL (4.8-10.8)
[2018-02-05 12:36] LABS: Actual Bicarbonate (HCO3a) 22.3 mEq/L (22-26); Base Excess (BEa) -1.6 mEq/L (0 (+/-) 2.5); CO2 Tension 34.2 mmHg (35.0-45.0); Hematocrit-ABG 29.3 % (36.0-47.0); Hemoglobin (Hb) 8.5 g/dL (12.0-16.0); O2 Tension (PaO2) 124.6 mmHg (80.0-100.0); pH, Arterial 7.43 (7.35-7.45)
[2018-02-05 12:37] LABS: Analyzer IN Cardio ER; Puncture Site RRA
[2018-02-05 12:44] LABS: ALT (SGPT) 23 U/L (8-55); AST (SGOT) 77 U/L (5-34); Albumin 1.2 g/dL (3.5-5.0); Alkaline Phosphatase 343 U/L (40-150); Anion Gap 16 mmol/L (10-20); BUN (Urea Nitrogen) 10 mg/dL (7.0-18.7); Bilirubin, Total 3.7 mg/dL (0.2-1.2); CK (CPK) 181 U/L (29-168); Calc. Creatinine Clearance 0 mL/min (70-130); Calcium 6.9 mg/dL (7.8-10.44); Carbon Dioxide 21 mmol/L (22-29); Chloride 99 mmol/L (98-107); Estimated GFR-MDRD Greater than 90; Globulin 2.7 g/dL (2.4-3.5); Glucose 113 mg/dL (70-105); Potassium 3.6 mmol/L (3.5-5.1); Protein, Total 3.9 g/dL (6.0-8.3); Sodium 132 mmol/L (136-145)
[2018-02-05 12:47] LABS: CKMB 2.6 ng/mL (0-6.6); Troponin I Less than 0.010 ng/mL (< 0.028)
[2018-02-05 12:54] LABS: Anisocytosis MODERATE=16-30 cells (100X) (0-5/hpf); Band 12 % (5-11); Lymphocytes 50 % (21-51); MDiff Complete? YES; Metamyelocyte 1 % (0-0); Monocytes 2 % (0-10); Neutrophil 35 % (42-75); PLT Morphology Comment Appears Adequate; Polychromasia MARKED = >4 cells (100X) (0-2/hpf)
[2018-02-05] MEDS ORDERED: Midazolam HCl 2 mg/2 ml Vial ONE (13:43)
[2018-02-05 13:58] LABS: BHCG - Serum Negative (NEGATIVE); Pregs Control Background? CLEAR/WHITE (CLR/WHITE); Pregs Control Bar Appear? YES (CONTROL BAR)
--- NOTE | 2018-02-05 14:04 | RAD ---
FRONTAL RADIOGRAPH CHEST: Date: 02-05-18 Comparison: 12-30-17 History: Altered mental status, syncope. FINDINGS: There is a new endotracheal tube projects over the tracheal air column, terminating approximately 2.2 cm above the josh. There is a CT injectable right sided port-a-cath. There is a left sided central venous catheter, distal tip overlying the cavoatrial junction. There is a nasogastric tube extending into the upper abdomen. There has been interval marked worsening of aeration within the left lung suggesting a enlarging nons pecific left pleural effusion and extensive underlying nonspecific air space disease. In addition, th ere is patchy increased density in the right upper lobe region and increased density in the right mynor g base. IMPRESSION: 1. Lines and tubes as above. 2. Extensive nonspecific bilateral pleural and parenchymal opacity, left greater than right. Findings may signify pulmonary edema, infectious pneumonitis or aspiration. POS: [facility]
[2018-02-05 14:49] LABS: Bilirubin Negative (Negative); Blood, Urine Large (Negative); Clarity CLEAR (Clear); Glucose, Urine (Dipstick) Negative (Negative); Leukocyte Negative (Negative); Nitrite Negative (Negative); Protein, Urine (Dipstick) Negative (Neg-Trace); Specific Gravity, Urine 1.011 (1.002-1.036); pH, Urine 6.5 (5.0-9.0)
[2018-02-05] MEDS ORDERED: Piperacillin/Tazobactam 3.375 GM VIAL ONE (14:51)
[2018-02-05 14:56] LABS: Bacteria/HPF None Seen HPF (None Seen); Hyaline Casts/LPF 4-6 HYALINE CAST LPF (0-3 Hyaline); Pathc Cast-AUWi Flag 1.16 (0-2.49); RBC/HPF GREATER THAN 50-TNTC HPF (0-3); Squamous Epithelial 0-3 HPF (0-3)
--- NOTE | 2018-02-05 15:30 | CT ---
CT HEAD WITH AND WITHOUT IV CONTRAST: Date: 02-05-18 History: Altered mental status. Patient [facility]. Patient w as intubated by EMS and brought to the Emergency Department. Comparison: MRI brain, 12-04-17 as well as on 12-01-[address] head on 12-01-17. FINDINGS: The previously seen multifocal patchy opacities in the subcortical white matter within the cerebral h emispheres bilaterally as well as in the region of the corpus callosum noted on prior study have reso lved. Again, findings on the prior study were likely related to PRES (posterior reversible encephalop athy syndrome). There is no evidence of an acute infarction, hemorrhage, mass effect, or midline shif t. No abnormal areas of enhancement are seen after the administration of intravenous contrast. Ventri cular system is normal in size, shape, and position. Calvarium structures are intact. No lytic or scl erotic osseous lesions are seen. Endotracheal tube and nasogastric tubes are partially visualized. Airfluid level is seen in the right maxillary antrum which may be related to the recent intubation. Mastoid air cells are clear. IMPRESSION: 1. No acute intracranial abnormality is demonstrated. 2. No abnormal areas of enhancement are seen within the brain to suggest metastatic disease. MRI woul d be a more sensitive study for evaluation of small metastatic lesions. 3. Resolution of the multifocal patchy opacities in the cerebral hemispheres bilaterally. Findings we re likely related to PRES on prior exam. 4. Air flow level right maxillary antrum, probably related to intubation. POS: [facility]
[2018-02-05 15:35] LABS: INR-International Normal Ratio 2.1; PTT 49.8 SEC (22.9-36.1); Prothrombin Time 23.9 SEC (12.0-14.7)
--- NOTE | 2018-02-05 15:40 | CT ---
CT ANGIOGRAM CHEST INCLUDING 3D RENDERING: History: 32-year-old female with history of syncope. Difficulty breathing. History of breast cancer with metas tases. FINDINGS: Contrast bolus concentration is somewhat limited. There is no evidence for central pulmonary embolus. The more distal and peripheral branches are less than optimally imaged on this study. There is a hug e left pleural effusion and a moderate to large right pleural effusion with some bilateral pleural ba sed parenchymal changes, evidence for bilateral atelectasis in the lower lung zones. There is evidenc e for diffuse anasarca. There are innumerable lytic bone lesions involving the ribs and spine, eviden ce for extensive bone metastases. The NG tube and endotracheal tubes are in satisfactory location. Th ere is hepatomegaly with very extensive liver metastases throughout the entire liver. There is eviden ce of extensive ascites. No pericardial effusion. IMPRESSION: Limited contrast bolus. No evidence for central pulmonary artery thrombosis. Very large left pleural effusion and moderate sized right pleural effusion with bilateral atelectasis. Extensive bone metasta ses. Very extensive liver metastases. Evidence for ascites. No pericardial effusion. Evidence for elenita sarca. POS: [facility]
[2018-02-05] MEDS: Sodium Chloride 0.9% 1,000 ML IV SCH (17:00)
[2018-02-05] MEDS ORDERED: Ondansetron HCl/PF 4 MG/2 ML Vial IVP PRN (17:11)
[2018-02-05] MEDS ORDERED: Acetaminophen 650 MG Suppository PR PRN (17:11)
[2018-02-05] MEDS ORDERED: VANCOMYCIN IVPB PRN (17:42)
[2018-02-05 18:47] VITALS: BMI 32.7
[2018-02-05] MEDS: Piperacillin/Tazobactam 3.375 GM in Sodium Chloride 0.9% 100 ML IVPB SCH (18:58)
[2018-02-05 19:06] LABS: Troponin I 0.051 ng/mL (< 0.028)
--- NOTE | 2018-02-05 19:57 | HP ---
PRIMARY CARE PHYSICIAN: Eulalio Donovan M.D. CHIEF COMPLAINT: Respiratory arrest. HISTORY OF PRESENT ILLNESS: The history of present illness is taken from discussion with the ER phys babs as the patient is currently intubated and unable to give a history. Ms. Hunter is an unfortunat e 32-year-old female who was only recently diagnosed with stage IV metastatic breast carcinoma. This was found after she gave to her third child. The cancer was extremely advanced at the time of diagnosis and after discovered she was essentially sent home on hospice. However, after being on ho spice, she seemed to be improving to the point where she was able to attend some of her children's af terschool activities and she contacted her oncologist, Dr. Pardo, who pleased with her improvement that is, said that they would consider starting chemotherapy. The patient was actually in the office today for her evaluation for her initial chemotherapy treatment when she suddenly gasped and said th at she was having shortness of breath and then immediately went into pulseless electrical activity an d was coded. CPR was done in the office and she was intubated and then transferred to our emergency room for evaluation. In the ER, there was concern for possible pulmonary embolism; however, CT scan of the chest or CTA was negative for pulmonary embolism; however, it did show that she has a large le ft pleural effusion. Her initial troponin was actually negative. Her EKG was sinus tachycardia and there was some evidence of low voltage. She was also hypotensive and required pressors to support he r blood pressure. She is being admitted to the ICU for further evaluation and treatment. REVIEW OF SYSTEMS: Unobtainable as the patient is unable to speak, now she is intubated, on the vent ilator. PAST MEDICAL HISTORY: Taken from the patient's who is at the bedside and includes stage IV b reast cancer. PAST SURGICAL HISTORY: Negative. FAMILY HISTORY: Significant for colon cancer in her grandfather. SOCIAL HISTORY: She lives at home with her . She has 3 children, the youngest of which is ju st several months old. She is a nonsmoker, nondrinker. CURRENT MEDICATIONS: Unobtainable. PHYSICAL EXAMINATION: VITAL SIGNS: Her blood pressure initially was 86/46, heart rate 127, respiratory rate of 12, and tem perature was 97.7. GENERAL: She is on the ventilator and is unresponsive. HEENT: Her pupils are reactive. NECK: There is no adenopathy, was not able to appreciate any bruits. LUNGS: Essentially clear. She did have some decreased breath sounds in the left base. There were n o rhonchi. CARDIOVASCULAR: She has distant heart tones. Her heart rate is tachycardic. I was not able to appr eciate any murmurs or rubs. ABDOMEN: Obese, it is soft, positive bowel sounds. EXTREMITIES: She has got massive 2-3+ pitting edema in both of her lower extremities and actually sh e had claudia anasarca with 2-4+ pitting edema in both her lower extremities and upper extremities and also in the torso. NEUROLOGIC: She was moving all extremities prior to this event. LABORATORY RESULTS AND X-RAY FINDINGS: White blood cell count was 16.9, hemoglobin 10.1, hematocrit is 33.1, platelet count is 159. On her ABG, the pH is 7.43, pCO2 of 34.2, and pO2 was 124. Sodium 1 32, potassium 3.6, chloride is 99, CO2 is 21, BUN of 10, creatinine of 0.6, glucose is 113. Her calc ium level was 6.9. Albumin is 1.2. Her alkaline phosphatase was 343. Troponin was 0.010. Chest x- ray demonstrated extensive pleural effusion, in which, by my reading her entire left lung is opacifie d. The heart size does appear normal and I do not appreciate any discrete infiltrate and on her EKG again it was sinus tachycardia, there was some low voltage, and some nonspecific ST wave changes. ASSESSMENT AND PLAN: This is a pleasant 32-year-old female who presented to the emergency room after suffering a cardiac arrest in the Oncology office. The original rhythm is reported as being pulsele ss electrical activity. She is currently intubated and is on IV pressors for blood pressure support. It is currently unclear the precipitating event, which caused the arrest. However, it is more than likely cancer related and that she does have an advanced stage for breast cancer. Extensive pulmona ry embolism has essentially been ruled out by CT angiogram of the chest, it does not appear that she has had a massive myocardial infarction as her initial troponin is negative and there are no signific ant ischemic changes on her EKG. There are no significant electrolyte abnormalities. Her hemoglobin is essentially negative and there was no report of any pneumothorax on CT. The patient was taken of f the ventilator and backed for some time without any significant change in her blood pressure. Ther efore, it is unlikely that there is any significant barotrauma contributing to the hypotension, but h as yet to be ruled out is significant pericardial effusion or cardiac tamponade. There are some poss ible hints to that with regard to the low voltage on the EKG. Nevertheless, she will be managed in [facility] ICU. Critical Care consult will be obtained. We will get an echocardiogram to assess for possibl e cardiac tamponade. She will be placed on empiric IV antibiotics in the event that there is any adia dence of sepsis; however, this is less likely. Consultation will be made with her oncologist with re cole to her overall prognosis given her advanced breast cancer and depending on the echo and followup laboratory results, Cardiology consultation can be entertained.
[2018-02-05] MEDS: Norepinephrine 8 MG/250 ML BAG IVPB PRN (20:30)
[2018-02-05] MEDS ORDERED: Famotidine/PF 20 mg/2ml Vial SLOW IVP SCH (21:00)
[2018-02-05] MEDS: Pantoprazole 40 MG VIAL IVP SCH (21:17)
[2018-02-05] MEDS: Vancomycin HCl 1 GM in Premix Bag 1 BAG IVPB SCH (21:17)
[2018-02-05 22:35] LABS: Troponin I 0.038 ng/mL (< 0.028)
--- NOTE | 2018-02-05 23:03 | CON ---
DATE OF CONSULTATION: 02/05/2018 HISTORY OF PRESENT ILLNESS: Coby Hunter is a 32-year-old unfortunate female who was in Dr. Pardo 's office, getting chemotherapy when she suddenly developed a respiratory arrest. She was in pulseless electrical activity mood and AIED was placed in the chest, which read ____. CPR was initiated right away by Dr. Pardo. 911 paramedics were called and she was given 2 amps of epi nephrine, was intubated and transferred to the ER. She is now intubated on the vent. There are several members present in the ER including hospice group, comfort care group. The patient is under hospice comfort care until recently when she felt somewhat better. Dr. Pardo thought that she could benefit from chemotherapy as some of her liver function profile are apparently had improved. She is presently in the ER on a Levophed drip, fentanyl drip and getting Zosyn. An emergent CT angio showed smaller right pleural effusion and noticed PE. INR was 2.1. White count 16,000, H and H is 10 and 30, platelet count is 59. Her pO2 is 124, pCO2 is 34.743, rate of 20, 60% . Renal function is normal. The patient's extensive medical history is well outlined in several of her recent admission. It is p ertinent for: 1. Metastatic breast cancer. 2. Symptomatic ascites, post-paracentesis multiple times. 3. Status post transfusion. 4. Abnormal chest x-ray with pleural effusions, left greater than right. 5. Multiple abnormal liver function profile. The patient underwent uneventful childbirth on 11/28/2017 and found to have a mass in the left breast 3 months prior to that and felt it was mastitis unfortunately, had a pain in the back and was found to have metastatic disease to the spine at that time. PAST MEDICAL HISTORY: Otherwise no major medical problems listed as hypertension. PAST SURGICAL HISTORY: D&C. CHRONIC MEDICATION: Mainly the discharge medication from home which has included fentanyl, torsemide , Ativan, lactulose. PHYSICAL EXAMINATION: HEENT: Pupils are 2 mm. She is jaundiced. VITAL SIGNS: Blood pressure is 110/80 on Levophed, pulse 100, respiratory rate is 20. CHEST: Decreased breath sounds without wheezing. CARDIAC: Sinus tachycardia. ABDOMEN: Distended with ascites. EXTREMITIES: 4+ ankle edema. LABORATORY DATA: White count of 16,000, H and H 10 and 30, platelet count 159. INR is 2.9. IMPRESSION: 1. Status post pulseless electrical activity, 2 amps of epinephrine with spiritism of pulse and bl ood pressure, now on Levophed. 2. Abnormal liver function, prolonged PT/INR. 3. Massive pleural effusions, left greater than right, but there is a pericardial effusion seen on t he CT. 4. Ascites, abnormal liver profile. PLAN: Most common causes of pulseless electrical activity are obviously PE, myocardial infarction, t amponade. Nothing there is obvious at this time. It is possible that her pulseless electrical activ ity could be due to the large pleural effusion that she has had even though on the x-ray, it does not appear to be substantial. Discussed with Dr. Pardo, her primary oncologist. We have got to trans ian to the ICU until all family members arrive. Thereafter, they will make a decision about continui ng care versus hospice care, etc. At this time, I am not in favor of tapping the left chest, more than likely this is secondary to her large ascitic fluid. Serial exam in the ICU until we make a decision about her long-term care and management. We will follow with ongoing discussed with Dr. Pardo. This is a 45-minute critical care time.
--- NOTE | 2018-02-05 23:20 | CON ---
DATE OF CONSULTATION: 02/05/2018 HISTORY OF PRESENT ILLNESS: Ms. Hunter is a 32-year-old female who is 9 weeks and approxim ately 8 weeks ago was diagnosed with metastatic HER-2 positive invasive ductal carcinoma. She was re cently on hospice after receiving 2 cycles of treatment and developing liver failure as well as a coa gulopathy, malignant ascites and failure to thrive. She was taken off hospice this morning in order to try more treatment because she had stabilized and while she was in my chemotherapy getting ready f or the infusion. She had a cardiopulmonary arrest which included a pulseless arrest. CPR was initia donna and the pulse was obtained only with CPR. EMS was on the scene quickly and also could not find a pulse and in fact commenced with CPR as well as Ambu bag and eventually intubation. She was brought to the emergency room and no pulmonary embolism was seen on CAT scan. She does have a very large le ft-sided pleural effusion which possibly could have contributed to the pulseless electrical activity arrest. She has now stabilized in the ICU on a Levophed drip as well as being intubated and we are c onsulted. PAST MEDICAL HISTORY: Metastatic breast cancer. CURRENT MEDICATIONS: 1. Tylenol p.r.n. 2. Lovenox 40 mg subcu q. day. 3. Pepcid 20 mg IV q.12 hours. 4. Fentanyl drip. 5. Midazolam drip. 6. Levophed drip. 7. Zofran 4 mg IV q.6 hours p.r.n. 8. Zosyn 3.375 grams IV q.6 hours. 9. Vancomycin 1 gram IV q.12 hours. HOME MEDICATIONS: 1. Torsemide 10 mg p.o. q. day. 2. Potassium chloride. 3. Lactulose p.r.n. 4. Pepcid 20 mg p.o. b.i.d. 5. Colace 100 mg p.o. q. day. ALLERGIES: No known drug allergies. SOCIAL HISTORY: She lives in [place] with her who is quite supportive and she has th ree young children. Her mother and [id number] all here and quite supportive. She denies tobacco or alcohol use. FAMILY HISTORY: Negative for breast or ovarian malignancy. REVIEW OF SYSTEMS: Unobtainable secondary to her being intubated. However, she has chronic lower ex tremity edema as well as chronic fatigue and weakness. PHYSICAL EXAMINATION: VITAL SIGNS: She is afebrile, pulse 112, blood pressure 115/71 on Levophed drip, 100% on the ventila tor. GENERAL: She is sedated and unresponsive. NECK: Supple, without lymphadenopathy. CARDIOVASCULAR: Regular rhythm. LUNGS: Decreased breath sounds in the bases bilaterally, worse on the left. ABDOMEN: Distended with ascites and obvious dullness in the flanks. EXTREMITIES: 2+ pitting edema bilaterally. LABORATORY DATA: White blood cell count 16.9, hemoglobin 10.1, platelets 159. INR 2.1. Sodium 132, potassium 3.6, chloride 99, CO2 of 21, BUN 10, creatinine 0.6, glucose 113, calcium 6.9, total bilir ubin 3.7, AST 77, ALT 23, alkaline phosphatase 343, creatine kinase 181. Troponin I less than 0.01, total protein 3.9, albumin 1.2. CT angiogram done in the emergency room showed no evidence for centr al pulmonary artery thrombosis, very large left pleural effusion and moderate right-sided pleural eff usion with bilateral atelectasis. There are extensive bone metastases itself, very extensive liver m etastases and evidence for ascites. There is no pericardial effusion. ASSESSMENT: Ms. Hunter is a 32-year-old female: 1. Metastatic HER-2 positive invasive ductal carcinoma who is on hospice up until recently. 2. Malignant ascites as well as full body anasarca and hypoalbuminemia. 3. Bilateral pleural effusions. 4. Cardiopulmonary arrest, likely a pulseless electrical activity arrest out of the hospital, now in tubated with respiratory failure and requiring pressure support. PLAN: I discussed the diagnosis and prognosis again with the patient's and family. They und erstand that would be reasonable in this situation her to be a DNR, but that otherwise I think we augie uld give her a day or two to recover from this to see if she could possibly recover. Since there is no known etiology for the cardiopulmonary arrest, it is reasonable to give her 24-48 hours to see if she can improve and come off the ventilator. We discussed all this at length. The is very i nterested in thoracentesis because a friend has recommended and we will discuss this further with Gwendolyn reynolds. An echo has been ordered. We will follow with you.
[2018-02-06] MEDS: Piperacillin/Tazobactam 3.375 GM in Sodium Chloride 0.9% 100 ML IVPB SCH ×5 (00:08→23:47)
[2018-02-06 05:41] LABS: Anion Gap 11 mmol/L (10-20); BUN (Urea Nitrogen) 11 mg/dL (7.0-18.7); Calc. Creatinine Clearance 219 mL/min (70-130); Calcium 6.5 mg/dL (7.8-10.44); Carbon Dioxide 26 mmol/L (22-29); Chloride 101 mmol/L (98-107); Estimated GFR-MDRD Greater than 90; Glucose 110 mg/dL (70-105); Sodium 135 mmol/L (136-145)
[2018-02-06 05:46] LABS: Potassium 2.6 mmol/L (3.5-5.1)
[2018-02-06] MEDS ORDERED: CCU Electrolyte Replacement 1 EACH FS SCH (05:48)
[2018-02-06] MEDS ORDERED: Potassium Chloride 40 MEQ in Sodium Chloride 0.9% 250 ML 250 ML IVPB PRN (05:57)
[2018-02-06] MEDS ORDERED: Potassium Phosphate 12 MMOL in Sodium Chloride 0.9% 250 ML 250 ML IV PRN (05:57)
[2018-02-06] MEDS ORDERED: Potassium Chloride 20 MEQ TAB PO PRN (05:57)
[2018-02-06] MEDS ORDERED: CCU ELECTROLYTE REPLACEMENT PROTOCOL FS PRN (05:57)
[2018-02-06] MEDS ORDERED: Potassium Phosphate 9 MMOL in Sodium Chloride 0.9% 100 ML IVPB PRN (05:57)
[2018-02-06] MEDS ORDERED: Magnesium 2 GM/NS 0.9% 100 ML 2 GM in Premix Bag 1 BAG IVPB PRN (05:57)
[2018-02-06] MEDS ORDERED: Potassium Phosphate 15 MMOL in Sodium Chloride 0.9% 250 ML 250 ML IV PRN (05:57)
[2018-02-06] MEDS ORDERED: Magnesium Oxide 400 MG TAB PO PRN ×2 (05:57)
[2018-02-06 06:00] LABS: Anisocytosis MODERATE=16-30 cells (100X) (0-5/hpf); Band 6 % (5-11); Eosinophils 1 % (0-10); Hemoglobin 10.6 g/dL (12.0-16.0); Lymphocytes 5 % (21-51); MDiff Complete? YES; Macrocytosis SLIGHT = 6-15 cells (100X) (0-5/hpf); Mean Corpuscular HGB CONC 31.3 g/dL (32.0-36.0); Mean Corpuscular Hemoglobin 30.8 pg (27.0-31.0); Mean Corpuscular Volume 98.5 fl (81.0-99.0); Mean Platelet Volume 8.6 fL (7.4-10.4); Monocytes 7 % (0-10); Neutrophil 81 % (42-75); PLT Morphology Comment Appears Adequate; Platelet Count 188 thou/uL (130-400); Polychromasia MARKED = >4 cells (100X) (0-2/hpf); RBC Distribution Width 21.2 % (11.5-14.5); Red Blood Cell (RBC) Count 3.44 mill/uL (4.20-5.40); Tear Drops SLIGHT = 2-5 cells (100X) (0-1/hpf); White Blood Cell (WBC) Count 22.4 thou/uL (4.8-10.8)
[2018-02-06] MEDS: Potassium Chloride 40 MEQ in Premix Bag 1 BAG IVPB PRN (06:10)
[2018-02-06 06:22] LABS: Magnesium 1.4 mg/dL (1.6-2.6); Phosphorus 3.1 mg/dL (2.3-4.7)
[2018-02-06] MEDS: Sodium Chloride 0.9% 1,000 ML IV SCH ×2 (06:36→15:10)
[2018-02-06] MEDS: Norepinephrine 8 MG/250 ML BAG IVPB PRN ×2 (06:43→19:59)
[2018-02-06 07:22] LABS: Actual Bicarbonate (HCO3a) 26.4 mEq/L (22-26); Base Excess (BEa) 2.6 mEq/L (0 (+/-) 2.5); CO2 Tension 37.4 mmHg (35.0-45.0); Hematocrit-ABG 33.8 % (36.0-47.0); Hemoglobin (Hb) 9.3 g/dL (12.0-16.0); O2 Tension (PaO2) 63.9 mmHg (80.0-100.0); pH, Arterial 7.47 (7.35-7.45)
[2018-02-06 07:23] LABS: Puncture Site RRA
[2018-02-06] MEDS ORDERED: Albumin 25% 25 GM/100 ML BOT IVPB SCH (08:14)
--- NOTE | 2018-02-06 08:29 | PRG ---
DATE OF SERVICE: 02/06/2018 She was intubated on the vent. This morning sedation fentanyl had been off for 30 minutes. She is s till not waking up. Pupils are 2 mm. She is jaundiced. PHYSICAL EXAMINATION: VITAL SIGNS: Pulse 110, blood pressure 100/67, sats 100%, respiration 19. I's and O's have been 604 in, 1005 out. CHEST: Chest revealed extensive rhonchi. CARDIAC: Sinus tachycardia. ABDOMEN: Distended. EXTREMITIES: 3+ edema. NEUROLOGIC: Sedated. White count 20,000, H&H 10 and 33, platelet count is normal. PO2 63, pCO2 of 37.47, rate of 14, 40%, PEEP of 5. Creatinine 2.6. The port is slightly elevated. X-ray shows bilateral pleural effusions, left greater than right. IMPRESSION: 1. Metastatic breast cancer with extensive ascites, left pleural effusion. 2. Status post cardiopulmonary arrest, probably anoxic injury. 3. Leukocytosis. PLAN: I discussed with Dr. Pardo and the at length. We will not do a thoracentesis unless the patient is a little bit more responsive. I am concerned she might have sustained anoxic injury. There is no way to tell until the sedation is completely worn off. In the meantime, continue supportive care, empiric antibiotics, stress dose of steroids, DVT prophyla xis, proton pump inhibitors. One-half hour critical care time.
[2018-02-06] MEDS: Enoxaparin Sodium 40 MG/0.4 ML SYRINGE SC SCH (08:31)
[2018-02-06] MEDS: Hydrocortisone Sod Succ/PF 100 mg/2 ml Vial IVP SCH ×3 (08:32→20:45)
[2018-02-06] MEDS: Vancomycin HCl 1 GM in Premix Bag 1 BAG IVPB SCH (08:32)
[2018-02-06] MEDS ORDERED: Vancomycin HCl 750 MG in Sodium Chloride 0.9% 250 ML 250 ML IVPB SCH (09:30)
--- NOTE | 2018-02-06 09:34 | PDOC.PN ---
- Subjective Encounter Start Date: 02/06/18 Encounter Start Time: 09:32 Ms. Hunter was seen today in follow-up of acute respiratory arrest. She is intubated, and sedation has been decreased. - Objective Resuscitation Status: Resuscitation Status FULL:Full Resuscitation MAR Reviewed: Yes Vital Signs & Weight: Vital Signs (12 hours) Temp Pulse Resp BP 02/06/18 08:00 16 02/06/18 07:00 98.9 F 02/06/18 06:58 112 H 103/65 02/06/18 06:00 17 02/06/18 04:00 98.3 F 14 02/06/18 02:12 112 H 95/51 L 02/06/18 02:00 14 02/06/18 00:00 98.9 F 14 02/05/18 22:00 99.5 F 14 02/05/18 21:56 112 H 103/54 L Most Recent Monitor Data Heart Rate from ECG 112 NIBP 88/45 NIBP BP-Mean 60 Respiration from ECG 15 SpO2 100 I&O: 02/05/18 02/06/18 02/07/18 06:59 06:59 06:59 Intake Total 604.4 100 Output Total 1005 100 Balance -400.6 0 Result Diagrams: 02/06/18 05:00 02/06/18 05:00 Phys Exam - Physical Examination HEENT: PERRLA Icteric Respiratory: no wheezing, no rhonchi + decreased breath sounds at the left base Cardiovascular: RRR, no significant murmur Gastrointestinal: soft 2+ pitting edema- throughout Dx/Plan (1) Breast cancer, stage 4 Code(s): C50.919 - MALIGNANT NEOPLASM OF UNSP SITE OF UNSPECIFIED FEMALE BREAST Status: Acute (2) Respiratory arrest Code(s): R09.2 - RESPIRATORY ARREST Status: Acute (3) Hypotension Status: Acute (4) Pleural effusion, right Code(s): J90 - PLEURAL EFFUSION, NOT ELSEWHERE CLASSIFIED Status: Acute - Plan * Respiratory arrest- ? etiology- still awaiting the Echo report to evaluate for pericardial effusion, and tamponade * Hypotension- ? etiology- continue pressor support, and IV fluids * Continue empiric antibiotics, and await culture results * Right Pleural effusion- discussed with Dr. Grande- will hold off on thorocentesis, until anoxic brain injury is ruled out * Hypokalemia, and hypomagnesemia- replace as per electrolyte protocol.
--- NOTE | 2018-02-06 10:03 | RAD ---
SEMIUPRIGHT PORTABLE CHEST 1 VIEW: HISTORY: A 32-year-old female with a history of intubation. COMPARISON: 02/05/18. FINDINGS: NG tube, endotracheal tube, left central venous catheters, and right subclavian catheter injection po rt are all in place in satisfactory location. Again noted is a very large left pleural effusion and a moderate-sized right pleural effusion with some bilateral vascular congestion. No pneumothorax. N o cardiomegaly. IMPRESSION: Little overall change in the appearance of the chest. Very large left pleural effusion and moderate right pleural effusion. POS: [facility]
[2018-02-06] MEDS ORDERED: Lacri-Lube Opth Oint 3.5 GM TUBE EA EYE PRN (10:32)
[2018-02-06] MEDS: Vancomycin HCl 1.75 GM in Sodium Chloride 0.9% 500 ML IVPB SCH (16:04)
[2018-02-06] MEDS: Pantoprazole 40 MG VIAL IVP SCH (20:45)
[2018-02-07] MEDS: Vancomycin HCl 1.75 GM in Sodium Chloride 0.9% 500 ML IVPB SCH (01:48)
[2018-02-07] MEDS: Hydrocortisone Sod Succ/PF 100 mg/2 ml Vial IVP SCH ×4 (02:50→22:06)
[2018-02-07 04:33] LABS: #Eosinphils 0.1 thou/uL (0.0-0.7); #Lymphocytes 1.8 thou/uL (1.20-3.40); #Monocytes 0.6 thou/uL (0.11-0.59); #Neutrophils 15.6 thou/uL (1.40-6.50); %Basophils 0.2 % (0.0-1.0); %Eosinophils 0.5 % (0.0-10.0); %Lymphocytes 9.7 % (21.0-51.0); %Monocytes 3.3 % (0.0-10.0); %Neutrophils 86.4 % (42.0-75.0); Hemoglobin 10.2 g/dL (12.0-16.0); Mean Corpuscular HGB CONC 31.2 g/dL (32.0-36.0); Mean Corpuscular Volume 99.5 fl (81.0-99.0); Mean Platelet Volume 8.3 fL (7.4-10.4); Platelet Count 191 thou/uL (130-400); RBC Distribution Width 21.4 % (11.5-14.5); Red Blood Cell (RBC) Count 3.27 mill/uL (4.20-5.40)
[2018-02-07 04:42] LABS: Anion Gap 9 mmol/L (10-20); BUN (Urea Nitrogen) 11 mg/dL (7.0-18.7); Calc. Creatinine Clearance 254 mL/min (70-130); Calcium 7.3 mg/dL (7.8-10.44); Carbon Dioxide 27 mmol/L (22-29); Chloride 105 mmol/L (98-107); Estimated GFR-MDRD Greater than 90; Glucose 115 mg/dL (70-105); Sodium 138 mmol/L (136-145)
[2018-02-07 05:09] LABS: Potassium 2.8 mmol/L (3.5-5.1)
[2018-02-07] MEDS: Piperacillin/Tazobactam 3.375 GM in Sodium Chloride 0.9% 100 ML IVPB SCH ×3 (05:57→17:52)
[2018-02-07] MEDS: Potassium Chloride 40 MEQ in Premix Bag 1 BAG IVPB PRN ×2 (05:57→15:12)
--- NOTE | 2018-02-07 08:40 | RAD ---
SINGLE VIEW OF CHEST: Date: 02/07/18 COMPARISON: 02/06/18. HISTORY: Ventilated patient with respiratory failure. FINDINGS: Single view of the chest shows normal sized cardiomediastinal silhouette. There are moderate bilatera l veil-like opacities which likely represent layering pleural effusions. The lines and tubes are unch anged in position. IMPRESSION: Stable bilateral pleural effusions. POS: OFF
--- NOTE | 2018-02-07 08:57 | PDOC.PN ---
- Subjective Encounter Start Date: 02/07/18 Encounter Start Time: 08:55 Ms. Hunter was seen in follow-up of respiratory arrest. She has not made much improvement overnight. Her is at the bedside - Objective Resuscitation Status: Resuscitation Status DNR:Do Not Resuscitate MAR Reviewed: Yes Vital Signs & Weight: Vital Signs (12 hours) Temp Pulse Resp BP 02/07/18 08:00 11 L 02/07/18 07:00 98.9 F 02/07/18 06:34 123 H 93/48 L 02/07/18 06:00 11 L 02/07/18 05:00 98.8 F 02/07/18 04:00 14 02/07/18 02:00 15 02/07/18 00:00 14 02/06/18 23:58 98.6 F 02/06/18 22:00 11 L Weight Admit Weight 196 lb Weight 196 lb 13.965 oz Most Recent Monitor Data Heart Rate from ECG 108 NIBP 106/62 NIBP BP-Mean 76 Respiration from ECG 10 SpO2 100 I&O: 02/06/18 02/07/18 02/08/18 06:59 06:59 06:59 Intake Total 604.4 3522 100 Output Total 1005 1050 150 Balance -400.6 2472 -50 Result Diagrams: 02/07/18 04:21 02/07/18 04:21 Phys Exam - Physical Examination HEENT: PERRLA Cardiovascular: RRR, no significant murmur Gastrointestinal: soft, non-tender, positive bowel sounds Musculoskeletal: edema present 3+ pitting edema thoughout Dx/Plan (1) Breast cancer, stage 4 Code(s): C50.919 - MALIGNANT NEOPLASM OF UNSP SITE OF UNSPECIFIED FEMALE BREAST Status: Acute (2) Respiratory arrest Code(s): R09.2 - RESPIRATORY ARREST Status: Acute (3) Hypotension Status: Acute (4) Pleural effusion, right Code(s): J90 - PLEURAL EFFUSION, NOT ELSEWHERE CLASSIFIED Status: Acute - Plan * Respiratory Arrest- from PEA from ? etiology as a consequence of Stage 4 breast cancer * Case discussed with Dr. Grande. Her plans to remove her from the ventilator * Will plan comfort care thereafter .
[2018-02-07] MEDS ORDERED: Morphine 4 MG/ML VIAL SLOW IVP PRN ×2 (09:01)
[2018-02-07] MEDS ORDERED: Lorazepam 2 MG/ML VIAL SLOW IVP PRN (09:02)
[2018-02-07 09:25] LABS: Vancomycin, Trough 34.2 ug/mL
[2018-02-07] MEDS: Enoxaparin Sodium 40 MG/0.4 ML SYRINGE SC SCH (10:43)
[2018-02-07] MEDS: Sodium Chloride 0.9% 1,000 ML IV SCH (10:43)
[2018-02-07] MEDS: Norepinephrine 8 MG/250 ML BAG IVPB PRN (10:43)
--- NOTE | 2018-02-07 11:28 | PRG ---
DATE OF SERVICE: 02/07/2018 SUBJECTIVE: She remains intubated on the vent. No sedation. On Levophed. OBJECTIVE: VITAL SIGNS: Blood pressure is 93/46, pulse is 108, sats 100%. She is barely assisting the vent at a rate of 11. I's and O's have been 3522 in and 1050 out. NEUROLOGICAL EXAM: Responsive. Pupils are 2 mm. Eyes are deviated down. She is jaundiced. CHEST: Reveals bilateral rhonchi or crackles. CARDIAC: Normal S1 and S2, no gallops. ABDOMEN: Distended with ascites. EXTREMITIES: 3+ ankle edema. LABORATORY DATA: Potassium 2.8. White count 18,000. Cultures are negative. IMPRESSION: 1. Status post cardiopulmonary arrest. 2. Probably anoxic injury. 3. Extensive metastatic breast cancer involvement of the spine, bone, probably lung. 4. Massive pleural effusion bilaterally. PLAN: Discussed with primary care, Oncology, today regarding ongoing supportive care versus extubation and comfort care. She is a DNR. She has been off sedation for 24 hours without much neurological improvement. Prognosis remains poor. [id number] critical care.
--- NOTE | 2018-02-07 13:34 | PQF ---
CLINICAL DOCUMENTATION IMPROVEMENT CLARIFICATION FORM: ICD-10 Updated PLEASE DO AN ADDENDUM TO THE PROGRESS NOTE WITH ANY DOCUMENTATION UPDATES OR ADDITIONS AND CARRY THROUGH TO DC SUMMARY. THANK YOU. DATE: 02/07/18 ATTN: Dr. Wang Please exercise your independent, professional judgment in responding to the clarification form. Clinical indicators are provided on the bottom of this form for your review Please check appropriate box(s): [ ] Hypovolemic Shock [ ] Cardiogenic Shock [ ] Shock Unspecified [ ] Other diagnosis [X ] Unable to determine In addition, please specify: Present on Admission (POA): [ X ] Yes [ ] No [ ] Unable to determine For continuity of documentation, please document condition throughout progress notes and discharge summary. Thank You. CLINICAL INDICATORS - SIGNS / SYMPTOMS / LABS H&P: BP 86/46, HR 127 PRESENTED TO ER AFTER SUFFERING A CARDIAC ARREST IN THE ONCOLOGY OFFICE. ORIGINAL RHYTHM IS REPORTED BEING PULSELESS ELECTRICAL ACTIVITY. SHE IS CURRENTLY INTUBATED & IS ON IV PRESSORS FOR BP SUPPORT. PULM. PN 02/07: REMAINS INTUBATED ON THE VENT. NO SEDATION. ON LEVOPHED RISKS: H&P: STAGE IV METASTATIC BREAST CARCINOMA. PRESENTED TO THE ER AFTER SUFFERING A CARDIAC ARREST IN THE ONCOLOGY OFFICE. CHEST XRAY DEMONSTRATED EXTENSIVE PLEURAL EFFUSION. TREATMENT: H&P: CURRENTLY INTUBATED ORDER 02/05: LEVOPHED 8MG/0.9% NS IV TITRATE FOR MBP > 60MMH Thank you, Radha (This form is maintained as a part of the permanent medical record) 2015 [employer]. All Rights Reserved Radha Ravi RN, BSN [email or web address] Office: [phone] [facility]
[2018-02-07 16:02] VITALS: BP 96/49
[2018-02-07] MEDS: Pantoprazole 40 MG VIAL IVP SCH (22:06)
[2018-02-08 00:12] VITALS: TEMP 97.8
[2018-02-08] MEDS: Piperacillin/Tazobactam 3.375 GM in Sodium Chloride 0.9% 100 ML IVPB SCH ×3 (00:36→12:17)
[2018-02-08] MEDS: Sodium Chloride 0.9% 1,000 ML IV SCH ×2 (00:40→12:17)
[2018-02-08] MEDS: Hydrocortisone Sod Succ/PF 100 mg/2 ml Vial IVP SCH ×2 (02:46→08:40)
[2018-02-08 04:50] LABS: #Eosinphils 0.1 thou/uL (0.0-0.7); #Lymphocytes 1.8 thou/uL (1.20-3.40); #Monocytes 0.6 thou/uL (0.11-0.59); #Neutrophils 11.5 thou/uL (1.40-6.50); %Basophils 0.1 % (0.0-1.0); %Eosinophils 0.5 % (0.0-10.0); %Lymphocytes 12.7 % (21.0-51.0); %Monocytes 4.1 % (0.0-10.0); %Neutrophils 82.7 % (42.0-75.0); Hemoglobin 9.8 g/dL (12.0-16.0); Mean Corpuscular HGB CONC 30.9 g/dL (32.0-36.0); Mean Platelet Volume 8.4 fL (7.4-10.4); Platelet Count 176 thou/uL (130-400); RBC Distribution Width 21.3 % (11.5-14.5); Red Blood Cell (RBC) Count 3.15 mill/uL (4.20-5.40); White Blood Cell (WBC) Count 13.9 thou/uL (4.8-10.8)
[2018-02-08 04:55] LABS: Anion Gap 11 mmol/L (10-20); BUN (Urea Nitrogen) 12 mg/dL (7.0-18.7); Calc. Creatinine Clearance 254 mL/min (70-130); Calcium 7.1 mg/dL (7.8-10.44); Carbon Dioxide 25 mmol/L (22-29); Chloride 106 mmol/L (98-107); Estimated GFR-MDRD Greater than 90; Glucose 110 mg/dL (70-105); Sodium 139 mmol/L (136-145)
[2018-02-08] MEDS: Potassium Chloride 40 MEQ in Premix Bag 1 BAG IVPB PRN (05:35)
--- NOTE | 2018-02-08 07:54 | RAD ---
FRONTAL RADIOGRAPH CHEST: Date: 02/08/18 COMPARISON: 02/07/18. HISTORY: CCU patient. FINDINGS: Endotracheal tube and nasogastric tube have been removed since the prior exam. Stable CT injectable Port-A-Cath on the right. Stable left-sided vascular catheter. Stable extensive air space disease in bilateral perihilar regions and both lung bases with prominent bilateral pleural effusions noted. IMPRESSION: Extensive air space disease and bilateral pleural effusions are unchanged. Continued follow-up advise marielena. POS: [facility]
[2018-02-08] MEDS ORDERED: Morphine 4 MG/ML VIAL IV PRN ×2 (08:27)
[2018-02-08] MEDS: Enoxaparin Sodium 40 MG/0.4 ML SYRINGE SC SCH (08:40)
[2018-02-08] MEDS ORDERED: fentaNYL 50 mcg/hour Patch TD SCH (09:00)
--- NOTE | 2018-02-08 09:00 | PDOC.PN ---
- Subjective Encounter Start Date: 02/08/18 Encounter Start Time: 08:58 -: non-verbal Ms. Hunter was seen today in follow-up. She has been extubated, and she is awake. She is not able to speak. She did lightly squeeze my hand on command. - Objective Resuscitation Status: Resuscitation Status DNR:Do Not Resuscitate MAR Reviewed: Yes Vital Signs & Weight: Vital Signs (12 hours) Temp 02/08/18 04:00 97.8 F 02/08/18 00:00 97.8 F Weight Admit Weight 196 lb Weight 196 lb 13.965 oz Most Recent Monitor Data Heart Rate from ECG 126 NIBP 102/58 NIBP BP-Mean 78 Respiration from ECG 20 SpO2 95 I&O: 02/07/18 02/08/18 02/09/18 06:59 06:59 06:59 Intake Total 3522 2444.3 100 Output Total 1050 824 50 Balance 2472 1620.3 50 Result Diagrams: 02/08/18 04:35 02/08/18 04:35 Phys Exam - Physical Examination HEENT: PERRLA Respiratory: no wheezing, no rales, no rhonchi, clear to auscultation bilateral Cardiovascular: RRR, no significant murmur, no rub Gastrointestinal: soft, non-tender, positive bowel sounds Musculoskeletal: edema present 2+ pitting edema Dx/Plan (1) Breast cancer, stage 4 Code(s): C50.919 - MALIGNANT NEOPLASM OF UNSP SITE OF UNSPECIFIED FEMALE BREAST Status: Acute (2) Respiratory arrest Code(s): R09.2 - RESPIRATORY ARREST Status: Acute (3) Hypotension Status: Acute (4) Pleural effusion, right Code(s): J90 - PLEURAL EFFUSION, NOT ELSEWHERE CLASSIFIED Status: Acute - Plan * Respiratory arrest- patient has been extubated * Stage 4 Breast cancer- her condition is terminal, and the plan is to move her to In-patient hospice * Will ensure that her comfort needs are met..
--- NOTE | 2018-02-08 09:15 | PRG ---
DATE OF SERVICE: 02/08/2018 SUBJECTIVE: Coby was extubated yesterday with the plans going palliative care. She is still on s ome Levophed and nursing is in the process of weaning that off. The patient does not appear to be in any distress, but does appear to be in some pain. OBJECTIVE: VITAL SIGNS: Her temperature is 97.8, pulse 126, blood pressure 102/58. A 24-hour intake 2444, outp ut 824. HEENT: Remarkable for alopecia. NECK: No JVD. LUNGS: Distant but clear breath sounds. CARDIOVASCULAR: S1, S2 regular. ABDOMEN: Distended, slightly tender to palpation. EXTREMITIES: Edematous. Her chest x-ray shows bilateral infiltrates. White blood cell count 13.9, hematocrit 31.6, platelet count 176. Sodium 139, potassium 3.0, chlorid e 106, CO2 25, BUN 12, creatinine 0.4, glucose 110. ASSESSMENT: 1. Metastatic breast cancer. 2. Status post cardiopulmonary arrest. 3. Anoxic brain injury. PLAN: 1. Wean off the Levophed. 2. Discontinue all laboratory and x-rays. 3. Transfer to Oncology for further palliative care. 4. I have started the fentanyl patch for the patient's comfort as she was using this at home. 5. I spoke with family at the bedside.
[2018-02-08] MEDS ORDERED: Scopolamine 1.5 mg/72 hour Patch TOP SCH (10:00)
--- NOTE | 2018-02-09 21:53 | DIS ---
PRIMARY CARE PHYSICIAN: Eulalio Donovan M.D. DATE OF ADMISSION: 02/05/2018 DATE OF DISCHARGE: 02/08/2018 DISCHARGE DISPOSITION: Inpatient hospice. DISCHARGE DIAGNOSES: 1. Stage IV breast cancer. 2. Respiratory arrest secondary to pulseless electrical activity. PROCEDURES DONE DURING ADMISSION: The patient had a CT angiogram of the chest, which demonstrated no evidence of pulmonary embolism. There was a very large pleural effusion and moderate-sized right pl eural effusion with bilateral atelectasis and extensive bone metastasis, very extensive liver metasta sis, evidence for ascites and there was no pericardial effusion and there was evidence of anasarca. The patient also had an echocardiogram in which the ejection fraction was estimated at 60% to 65%. T here was normal left atrial size and a large pleural effusion. ALLERGIES: No known drug allergies. CODE STATUS: DNR. HOSPITAL COURSE: Ms. Hunter is a 32-year-old female who was admitted from her oncologist's office aft er she suffered an acute respiratory arrest. She was found to be in pulseless electrical activity. CPR was started and she was intubated and admitted to the ICU. Again, the original rhythm was pulsel ess electrical activity; however, the etiology was not obtained, but likely as a consequence of her a dvanced breast cancer, pulmonary embolism, pericardial effusion and severe electrolyte abnormalities as well as acute NC were all ruled out. There was no evidence of sepsis. The patient nevertheless u nfortunately has extremely advanced breast cancer and was unlikely to survive her illness. This info rmation was given to the patient's family and and the decision was made to take her off the v entilator and she was then transferred to inpatient hospice on 02/08/2018.
== END 2018-02-08 13:29 | disposition hospice, inpatient (51) | DRG 597 ==
LOC: ERS 12:01 → CCU 16:38 → T4-A 02-08 13:14
PROVIDERS: ADMIT Internal Medicine; ATTEND Internal Medicine
PROC: 5A1945Z Respiratory Ventilation, 24-96 Consecutive Hours (ICD-10-PCS; principal; 2018-02-05)
PROC: 02HV33Z Insertion of Infusion Device into Superior Vena Cava, Percutaneous Approach (ICD-10-PCS; 2018-02-05)
PROC: B548ZZA Ultrasonography of Superior Vena Cava, Guidance (ICD-10-PCS; 2018-02-05)
DX: C50.912 Malignant neoplasm of unspecified site of left female breast (principal); I46.8 Cardiac arrest due to other underlying condition; G93.1 Anoxic brain damage, not elsewhere classified; J91.0 Malignant pleural effusion; R18.8 Other ascites; C79.51 Secondary malignant neoplasm of bone; I95.9 Hypotension, unspecified; E88.09 Other disorders of plasma-protein metabolism, not elsewhere classified; R94.5 Abnormal results of liver function studies; Z17.0 Estrogen receptor positive status [ER+]
CPT/HCPCS: 36415; 36556; 70470; 71045; 71275; 80048; 80053; 80202; 81003; 81015; 82248; 82550; 82553; 82805; 83615; 83735; 84100; 84132; 84484; 84550; 84703; 85025; 85610; 85730; 87040; 87086; 93005; 93306; 94002; 94003; 94760; 96361; 96365; 96366; 96368; 96374; 96375; 96376; C9113; J1650; J1720; J2250; J2270; J2543; J2997; J3010; J3370; J3475; J3480; J7050; P9047

== ENCOUNTER 2018-02-08 13:30 | Inpatient (IN) | payer OTHER ==
[2018-02-08] MEDS ORDERED: Hyoscyamine Sulfate SL 0.125 mg Tablet SL PRN (13:48)
[2018-02-08] MEDS ORDERED: Acetaminophen 650 MG Suppository PR PRN (13:49)
[2018-02-08] MEDS: fentaNYL 50 mcg/hour Patch TD SCH (14:42)
[2018-02-08 14:49] VITALS: BMI 33.5
[2018-02-09] MEDS: Morphine 4 MG/ML VIAL IV PRN ×2 (08:29→13:42)
[2018-02-09] MEDS: Lorazepam 2 MG/ML VIAL SLOW IVP PRN ×3 (08:30→17:35)
[2018-02-09] MEDS: Morphine 4 MG/ML VIAL SLOW IVP PRN (17:37)
[2018-02-09 21:33] VITALS: TEMP 97.6
[2018-02-10] MEDS: Morphine 4 MG/ML VIAL SLOW IVP PRN ×2 (07:21→18:26)
[2018-02-10] MEDS: Lorazepam 2 MG/ML VIAL SLOW IVP PRN (07:22)
[2018-02-10] MEDS ORDERED: Lorazepam 2 MG/ML VIAL SLOW IVP SCH (07:30)
[2018-02-10] MEDS: Morphine 4 MG/ML VIAL SLOW IVP SCH ×5 (09:06→23:08)
[2018-02-10] MEDS: Lorazepam 2 MG/ML VIAL SLOW IVP SCH ×5 (09:06→23:06)
[2018-02-11] MEDS: Lorazepam 2 MG/ML VIAL SLOW IVP SCH ×6 (03:24→23:03)
[2018-02-11] MEDS: Morphine 4 MG/ML VIAL SLOW IVP SCH ×6 (03:27→22:54)
[2018-02-11] MEDS: Morphine 4 MG/ML VIAL SLOW IVP PRN ×2 (13:02→16:14)
[2018-02-11] MEDS: fentaNYL 50 mcg/hour Patch TD SCH (14:22)
[2018-02-11] MEDS ORDERED: Scopolamine 1.5 mg/72 hour Patch TOP SCH (16:00)
[2018-02-12] MEDS: Morphine 4 MG/ML VIAL SLOW IVP PRN ×4 (00:47→11:40)
[2018-02-12] MEDS: Lorazepam 2 MG/ML VIAL SLOW IVP SCH ×3 (02:40→10:00)
[2018-02-12] MEDS: Morphine 4 MG/ML VIAL SLOW IVP SCH ×3 (02:42→11:17)
[2018-02-12 07:19] VITALS: BP 102/66
[2018-02-12] MEDS ORDERED: Lorazepam 2 MG/ML VIAL SLOW IVP PRN ×2 (11:57→11:58)
--- NOTE | 2018-02-13 14:47 | DS ---
The patient was admitted to inpatient hospice at our facility on 02/08/2018. DATE OF AND DISCHARGE: 02/12/2018 HOSPITAL COURSE: Ms. Hunter is a 32-year-old female, who had metastatic HER2 positive breast cancer, who underwent a cardiopulmonary arrest one week prior to her in my office. She was resuscitate d and brought to the emergency room with a full CPR. Upon coming to the emergency room, she was intu bated as well as put on pressor support and did make it to the ICU. She was monitored for 2 days in the ICU and pressure support was decreased. Eventually, she was extubated and did survive. She requ ired some sedatives and narcotics for pain medication and shortness of breath. 24 hours after direct ed the patient, she was transferred to our care under inpatient hospice and for 4 days was kept comfo rtable by the nursing staff. Eventually, she did of metastatic breast cancer and anoxic brain in jury on 02/12/2018. DISCHARGE DISPOSITION: The patient .
== END 2018-02-12 12:05 | disposition expired | DRG 951 ==
LOC: T4-A 13:30
PROVIDERS: ADMIT Internal Medicine Hematology & Oncology; ATTEND Internal Medicine Hematology & Oncology
DX: Z51.5 Encounter for palliative care (principal); C50.919 Malignant neoplasm of unspecified site of unspecified female breast; I46.9 Cardiac arrest, cause unspecified; Z17.0 Estrogen receptor positive status [ER+]
CPT/HCPCS: A4216; J2060; J2270